=== PATIENT | female | born 1950 | race African-American/Black ===

== ENCOUNTER 2016-09-09 10:18 | Inpatient (IN) | payer OTHER, MEDICARE ==
[~2016-09-09] VITALS: Ht 165.1 cm; Wt 107.2 kg
[2016-09-09] VITALS (9 sets, daily range): BP systolic 132–217; BP diastolic 76–91; PULSE 50–81; RESP 14–24; TEMP 98.1–98.8; O2SAT 96–99
[~2016-09-09 10:18] MED LIST: 1-ME1LIQ PO; ASPI81TA17 PO; COZA50TA PO; HYDR-2768 PO; METO50CR PO; NOVONP2 SQ; NOVORP2 SQ; SALS500T PO
--- NOTE | 2016-09-09 10:52 | PD ---
HPI Chief Complaint: Abnormal Results Time Seen by Provider: 10:27 Travel History International Travel<30 days: No Contact w/Intl Traveler<30days: No Traveled to known affect area: No History of Present Illness HPI 66 y/o female presents with upset stomach that she followed with her primary Dr. Emery who did blood work and told her she needed to come to the emergency department given her liver numbers and kidney numbers were abnormal. Patient currently denies any abdominal pain or nausea at this time but does note dark urine. She does not know how abnormal her blood work was other than she was told to come here. PFSH Past Medical History Anxiety: Yes Cardiovascular Problems: Yes Diabetes: Yes Patient Takes Glucophage: No Hypertension: Yes Musculoskeletal: Yes (3 BULDGING DISCS IN THE LOWER BACK; CHRONIC BACK PAIN) Integumentary: Yes ?: Not : 2 Para: 2 Past Surgical History Hysterectomy: Yes Other Surgery: Yes Social History Alcohol Use: Yes (BEER OR WINE OCCASSIONALLY) Tobacco Use: No Substance Use: No Allergies-Medications (Allergen,Severity, Reaction): Coded Allergies: Flexeril (Verified Adverse Reaction, Mild, UPSET STOMACH, 09/09/16) Reported Meds & Prescriptions Reported Meds & Active Scripts Active Reported Omeprazole 20 Mg Tab 20 Mg PO DAILY Novolin R Inj (Insulin Human Regular) 1,000 Unit/10 Ml Vial 2-10 Units SQ DIRECTED Max dose at bedtime:( )units; sugars less than 150,(0) units; sugars 150-199,(2)unit; sugars 200-249,(4)units; sugars 250-299,(6) units; sugars 300-349,(8)units; sugars equal to or greater than 350,(10)units Losartan-Hydrochlorothiazide 100-25 Mg Tab 1 Tab PO DAILY Metoprolol Succinate ER 24 HR (Metoprolol Succinate) 100 Mg Tab 100 Mg PO DAILY Atorvastatin (Atorvastatin Calcium) 80 Mg Tab 80 Mg PO HS Novolin N Inj (Insulin Human NPH) 1,000 Unit/10 Ml Vial 10 Units SQ Alprazolam 0.5 Mg Tab 0.5 Mg PO Q4H PRN Hydrocodone-Acetaminophen 10-325 mg Tab 1 Tab PO Q4H PRN Review of Systems Except as stated in HPI: all other systems reviewed are Neg Physical Exam Narrative GENERAL: Well-nourished, well-developed patient. SKIN: Warm and dry. HEAD: Normocephalic and atraumatic. EYES: No injection or drainage. ENT: No nasal drainage noted. NECK: Supple, trachea midline. CARDIOVASCULAR: Regular rate and rhythm RESPIRATORY: No increased effort. No accessory muscle use. GASTROINTESTINAL: Abdomen soft, non-tender, nondistended. NEUROLOGICAL: Awake and alert. Motor and sensory grossly within normal limits. Normal speech. Data Data Last Documented VS Vital Signs Date Time Temp Pulse Resp B/P Pulse Ox O2 Delivery O2 Flow Rate FiO2 09/09/16 11:30 50 15 211/91 96 Room Air 09/09/16 10:21 98.3 Orders Complete Blood Count With Diff (09/09/16 10:27) Comprehensive Metabolic Panel (09/09/16 10:27) Urinalysis - C+S If Indicated (09/09/16 10:27) Lipase (09/09/16 10:27) Iv Access Insert/Monitor (09/09/16 10:27) Ct Abd/Pel W/O Iv Contrast (09/09/16 ) Dextrose 5%-Lactated Ring Inj (D5-Lr Inj (09/09/16 11:55) Creatine Kinase (Cpk) (09/09/16 12:49) Myoglobin, Urine (09/09/16 12:50) Admit Order (Ed Use Only) (09/09/16 12:50) Creatine Kinase (Cpk) (09/09/16 10:50) Direct Bilirubin (09/09/16 10:50) Gamma Gt (Ggt) (09/09/16 10:50) CKMB (09/09/16 10:50) CKMB% (09/09/16 10:50) Labs Laboratory Tests Test 09/09/16 09/09/16 10:50 11:30 White Blood Count 8.8 TH/MM3 Red Blood Count 4.53 MIL/MM3 Hemoglobin 13.3 GM/DL Hematocrit 39.0 % Mean Corpuscular Volume 85.9 FL Mean Corpuscular Hemoglobin 29.3 PG Mean Corpuscular Hemoglobin 34.1 % Concent Red Cell Distribution Width 16.8 % Platelet Count 249 TH/MM3 Mean Platelet Volume 11.0 FL Neutrophils (%) (Auto) 54.3 % Lymphocytes (%) (Auto) 23.6 % Monocytes (%) (Auto) 16.1 % Eosinophils (%) (Auto) 4.7 % Basophils (%) (Auto) 1.3 % Neutrophils # (Auto) 4.8 TH/MM3 Lymphocytes # (Auto) 2.1 TH/MM3 Monocytes # (Auto) 1.4 TH/MM3 Eosinophils # (Auto) 0.4 TH/MM3 Basophils # (Auto) 0.1 TH/MM3 CBC Comment AUTO DIFF Differential Comment AUTO DIFF CONFIRMED Sodium Level 135 MEQ/L Potassium Level 3.0 MEQ/L Chloride Level 96 MEQ/L Carbon Dioxide Level 32.3 MEQ/L Anion Gap 7 MEQ/L Blood Urea Nitrogen 40 MG/DL Creatinine 3.31 MG/DL Random Glucose 60 MG/DL Calcium Level 9.2 MG/DL Total Bilirubin 1.8 MG/DL Direct Bilirubin 1.2 MG/DL Gamma Glutamyl Transpeptidase 1432 U/L Aspartate Amino Transf 1023 U/L (AST/SGOT) Alanine Aminotransferase 419 U/L (ALT/SGPT) Alkaline Phosphatase 571 U/L Total Creatine Kinase GREATER THAN 18658 U/L Creatine Kinase MB 24.5 NG/ML Creatine Kinase MB % 0.0 % Total Protein 10.0 GM/DL Albumin 2.8 GM/DL Lipase 379 U/L Urine Color YELLOW Urine Turbidity CLEAR Urine pH 7.0 Urine Specific [place] 1.007 Urine Protein 100 mg/dL Urine Glucose (UA) NEG mg/dL Urine Ketones NEG mg/dL Urine Occult Blood LARGE Urine Nitrite NEG Urine Bilirubin NEG Urine Urobilinogen LESS THAN 2.0 MG/DL Urine Leukocyte Esterase NEG Urine RBC LESS THAN 1 /hpf Urine WBC 3 /hpf Urine Squamous Epithelial 1 /hpf Cells Urine Transitional Epithelial <1 /hpf Cells Urine Bacteria RARE /hpf Microscopic Urinalysis Comment CULT NOT INDICATED Urine Random Creatinine 58.1 MG/DL Urine Random Sodium 41 MEQ/L Urine Opiates Screen NEG Urine Barbiturates Screen NEG Urine Amphetamines Screen NEG Urine Benzodiazepines Screen NEG Urine Cocaine Screen NEG Urine Cannabinoids Screen NEG MDM Medical Decision Making Medical Screen Exam Complete: Yes Emergency Medical Condition: Yes Medical Record Reviewed: Yes (past history confirmed) Interpretation(s) CBC & BMP Diagram 09/09/16 10:50 Last 24 hours Impressions Abdomen/Pelvis CT 09/09/16 0000 Signed Impressions: Service Date/Time: Friday, September 09, 2016 12:27 - CONCLUSION: Normal liver, gallbladder and biliary tree. Multiple bilateral renal calyceal punctate stone is nonobstructive. Surgical absence of uterus. Degenerative changes of the lumbar spine Ghassan Swift MD Differential Diagnosis Choledocholithiasis, hepatitis, mass.... Narrative Course Will check blood work, urinalysis, CAT scan and reevaluate. Currently pain-free ed workup confirms acute renal failure and elevated LFTs without mass or gallstone. Patient will be admitted for further workup. Physician Communication Physician Communication dr hernandez agrees to admit, CK added on Diagnosis Primary Impression: Acute renal failure Qualified Code: N17.9 - Acute renal failure, unspecified acute renal failure type Additional Impressions: Rhabdomyolysis Qualified Code: M62.82 - Non-traumatic rhabdomyolysis Elevated LFTs Hypoglycemia Admitting Information Admitting Physician Requests: Admit Aracelis Mcgrath MD Sep 09, 2016 10:52
[2016-09-09 11:10] LABS: AUTOMATED NEUTROPHIL # 4.8 TH/MM3 (1.8-7.7); BASOPHIL # 0.1 TH/MM3 (0-0.2); BASOPHIL % 1.3 % (0.0-2.0); EOSINOPHIL # 0.4 TH/MM3 (0-0.4); EOSINOPHIL % 4.7 % (0.0-4.0); LYMPH % 23.6 % (9.0-44.0); LYMPHOCYTE # 2.1 TH/MM3 (1.0-4.8); MEAN CELL VOLUME 85.9 FL (80.0-100.0); MEAN CORPUSCULAR HEMOGLOBIN 29.3 PG (27.0-34.0); MEAN CORPUSCULAR HGB CONC 34.1 % (32.0-36.0); MONO % 16.1 % (0.0-8.0); NEUT % 54.3 % (16.0-70.0); PLATELET COUNT 249 TH/MM3 (150-450); RED BLOOD COUNT 4.53 MIL/MM3 (4.00-5.30); RED CELL DISTRIBUTION WIDTH 16.8 % (11.6-17.2); WHITE BLOOD COUNT 8.8 TH/MM3 (4.0-11.0)
[2016-09-09 11:11] LABS: HEMO FLAGS AUTO DIFF
[2016-09-09 11:23] LABS: ALT (GPT) 419 U/L (10-53); ANION GAP 7 MEQ/L (5-15); BICARBONATE 32.3 MEQ/L (21.0-32.0); BLOOD UREA NITROGEN 40 MG/DL (7-18); CHLORIDE 96 MEQ/L (98-107); SODIUM (NA) 135 MEQ/L (136-145)
[2016-09-09 11:30] LABS: ALKALINE PHOSPHATASE 571 U/L (45-117); AST (GOT) 1023 U/L (15-37); TOTAL BILIRUBIN ADULT 1.8 MG/DL (0.2-1.0)
[2016-09-09 11:48] LABS: BACTERIA, URINE RARE /hpf; BLOOD, URINE LARGE (NEG); COMMENT (UR) CULT NOT INDICATED; CULTURE IF INDICATED CULT NOT INDICATED; GLUCOSE,URINE NEG (NEG); KETONE, URINE NEG (NEG); NITRITE,URINE NEG (NEG); SQUAMOUS EPITHELIAL CELL URINE 1 /hpf (0-5); TRANSITIONAL EPI CELLS, URINE <1 /hpf; URINE COLOR YELLOW (YELLW/STRAW)
[2016-09-09] MEDS ORDERED: DEXTROSE 5%-LACTATED RING INJ 1,000 ML IV SCH (11:55)
[2016-09-09 12:06] LABS: SCAN/DIFF AUTO DIFF CONFIRMED
--- NOTE | 2016-09-09 12:46 | RADRPT ---
EXAM DATE/TIME: 09/09/2016 12:27 [facility] COMPARISON: No previous studies available for comparison. INDICATIONS : Abnormal liver and kidney blood work. ORAL CONTRAST: No oral contrast ingested. RADIATION DOSE: 16.91 CTDIvol (mGy) MEDICAL HISTORY : Hypertension. Diabetes SURGICAL HISTORY : Hysterectomy. ENCOUNTER: Initial ACUITY: 1 day PAIN SCALE: 0/10 LOCATION: abdomen TECHNIQUE: Volumetric scanning of the abdomen and pelvis was performed. Using automated exposure control and ad justment of the mA and/or kV according to patient size, radiation dose was kept as low as reasonably achievable to obtain optimal diagnostic quality images. FINDINGS: LOWER LUNGS: The visualized lower lungs are clear. LIVER: Homogeneous density without lesion. There is no dilation of the biliary tree. No calcified gallston es. Gallbladder series luminal structure without wall thickening or stones. SPLEEN: Normal size without lesion. PANCREAS: Within normal limits. KIDNEYS: Normal in size and shape. There is no mass or hydronephrosis. Multiple bilateral punctate nonobstruc ting calyceal renal stones. ADRENAL GLANDS: Within normal limits. VASCULAR: There is no aortic aneurysm. BOWEL/MESENTERY: The stomach, small bowel, and colon demonstrate no acute abnormality. There is no free intraperitone al air or fluid. Appendix visualized and normal. ABDOMINAL WALL: Within normal limits. RETROPERITONEUM: There is no lymphadenopathy. BLADDER: No wall thickening or mass. REPRODUCTIVE: Surgical absence of uterus.. INGUINAL: There is no lymphadenopathy or hernia. MUSCULOSKELETAL: Degenerative disc disease lower lumbar spine L4-5 and L5-S1 with facet arthritic changes. CONCLUSION: Normal liver, gallbladder and biliary tree. Multiple bilateral renal calyceal punctate stone is n onobstructive. Surgical absence of uterus. Degenerative changes of the lumbar spine Ghassan Swift MD on September 09, 2016 at 12:41 Board Certified Radiologist. This report was verified electronically.
[2016-09-09] MEDS ORDERED: SODIUM CHLOR 0.9% 1000 ML INJ 1,000 ML IV SCH (12:50)
[2016-09-09] MEDS ORDERED: NALOXONE HCL 0.4 MG/ML AMP IV PRN (13:00)
[2016-09-09] MEDS ORDERED: SODIUM CHLORIDE 0.9% FLUSH 5 ML FLUSH FLUSH PRN (13:00)
[2016-09-09] MEDS ORDERED: DEXTROSE 50% IN WATER 50 ML VIAL(D50) IV PUSH PRN (13:15)
[2016-09-09] MEDS ORDERED: GLUCAGON 1 MG/ML VIAL OTHER PRN (13:15)
[2016-09-09 13:43] LABS: AMPHETAMINE, URINE NEG (NEG); BARBITURATES, URINE NEG (NEG); COCAINE, URINE NEG (NEG)
[2016-09-09] MEDS: HEPARIN SODIUM - SQ 10,000 UNITS/ML VIAL SQ SCH (13:43)
[2016-09-09] MEDS: cloNIDine HCL 0.1 MG TAB PO PRN ×2 (13:43→20:40)
[2016-09-09] MEDS ORDERED: POTASSIUM CHLORIDE 10 MEQ CONTROLLED RELEASE TAB PO ONE (14:45)
[2016-09-09] MEDS ORDERED: THIAMINE HCL 100 MG TAB PO ONE (14:45)
[2016-09-09] MEDS ORDERED: SODIUM CHLORID 0.9% 500 ML INJ 500 ML IV ONE (14:45)
[2016-09-09 14:58] LABS: GAMMA GT 1432 U/L (5-55)
[2016-09-09] MEDS ORDERED: predniSONE 10 MG TAB PO ONE (15:00)
[2016-09-09 15:06] LABS: CREATINE KINASE GREATER THAN 14000 U/L (26-192)
[2016-09-09 15:23] LABS: CKMB 24.5 NG/ML (0.5-3.6)
[2016-09-09] MEDS ORDERED: METO100T9 PO (15:37)
[2016-09-09] MEDS ORDERED: HYDR-3583 PO (15:37)
[2016-09-09] MEDS ORDERED: ATOR1TAB18 PO (15:37)
[2016-09-09] MEDS ORDERED: NOVORP2 SQ (15:37)
[2016-09-09] MEDS ORDERED: ALPR0.5T3 PO (15:37)
[2016-09-09] MEDS ORDERED: OMEP20TA PO (15:37)
[2016-09-09] MEDS ORDERED: NOVONP2 SQ (15:37)
[2016-09-09] MEDS ORDERED: LOSA100T2 PO (15:37)
[2016-09-09] MEDS ORDERED: INSULIN ASPART SUPPLEMENTAL SCALE SQ SCH (16:00)
[2016-09-09] MEDS ORDERED: D5-NS + KCL 20 MEQ INJ 1,000 ML IV SCH (16:00)
[2016-09-09 16:11] LABS: HEMOGLOBIN A1a 1.2 %; HEMOGLOBIN Ao 82.6 %; HEMOGLOBIN F 1.3 %; HEMOGLOBIN LA1C 1.7 %; HEMOGLOBIN P3 4.5 %
--- NOTE | 2016-09-09 16:54 | PD.CONS ---
[facility] Service Nephrology Consult Requested By Reason for Consult Acute Renal Failure Primary Care Physician Trish Emery MD History of Present Illness This is a morbidly obese AAF who was sent in by her PCP for abnormal labs. She went in for routine lab work, but now reports that she has been having epigastric pain with nausea for 1-2 weeks. She has also been extremely fatigued. PMH significant for DM II since 1996, managed on insulin, HTN, anxiety , and chronic back pain. She denies hx of renal disorders in the past. Labs on admission abnormal for the following: K 3.0, CO2 32.3, BUN 40, Cr 3.31, T Bili 1.8, CK >38367, AST 1023, ALT 419, GGT 1432, Alk phos 571. CT of abdomen without contrast showing normal liver/GB study but did reveal multiple nonobstructing renal stones bilaterally. She denies hx of renal stones in the past. Her urine output has decreased drastically over past 2 weeks, and she noticed it has became very dark, tea/cola colored. UA today revealing some protein and large occult blood. We were consulted today for renal management. She denies trauma/falls, seizures, muscle pain, chest pain, and shortness of breath. She has been on Atorvastatin 20 mg since April 2016 with no issues. Her last creatinine on record was normal but that dates from 2012. I called her PCP and was able to have baseline labs sent over for review. It seems in October of 2015 creatinine measured 1.11, GFR 60, with trace proteinuria. She does take Advil prn for pain, has only taken one dose in past 2 weeks. Her oral intake has been minimal this week. Her is at bedside during the exam, she is a full code. She is not a heavy drinker. IVF infusing is D5NS with 20 mEq KCL @ 100cc/hr. She was given one amp of D50 and a dose of prednisone due to hypoglycemia in ER. (Charlene Ramirez) Review of Systems Constitutional: COMPLAINS OF: Fatigue, Change in appetite, DENIES: Fever, Weight gain, Night Sweats Cardiovascular: DENIES: Chest pain, Dyspnea on Exertion, Lower Extremity Edema Gastrointestinal: COMPLAINS OF: Abdominal pain, Constipation, Nausea, Anorexia , DENIES: Black stools, Bloody stools, Difficulty Swallowing Neurologic: DENIES: Abnormal gait (Charlene Ramirez) Past Family Social History Allergies: Coded Allergies: Flexeril (Verified Adverse Reaction, Mild, UPSET STOMACH, 09/09/16) Past Medical History HTN DM II since 1996 Hyperlipidemia Anxiety Chronic back pain Vitiligo ventral hernia Past Surgical History Total abdominal hysterectomy Carpel tunnel bilaterally Reported Medications Omeprazole 20 Mg Tab 20 Mg PO DAILY Novolin R Inj (Insulin Human Regular) 1,000 Unit/10 Ml Vial 2-10 Units SQ DIRECTED Max dose at bedtime:( )units; sugars less than 150,(0) units; sugars 150-199,(2)unit; sugars 200-249,(4)units; sugars 250-299,(6) units; sugars 300-349,(8)units; sugars equal to or greater than 350,(10)units Losartan-Hydrochlorothiazide 100-25 Mg Tab 1 Tab PO DAILY Metoprolol Succinate ER 24 HR (Metoprolol Succinate) 100 Mg Tab 100 Mg PO DAILY Atorvastatin (Atorvastatin Calcium) 80 Mg Tab 80 Mg PO HS Novolin N Inj (Insulin Human NPH) 1,000 Unit/10 Ml Vial 10 Units SQ Alprazolam 0.5 Mg Tab 0.5 Mg PO Q4H PRN Hydrocodone-Acetaminophen 10-325 mg Tab 1 Tab PO Q4H PRN Active Ordered Medications Current Medications Medications (Trade) Dose Ordered Sig/Chantel Route Start Time Stop Time Status Last Admin (NS Flush) 2 ml UNSCH PRN FLUSH 09/09/16 13:00 (NS Flush) 2 ml BID FLUSH 09/09/16 21:00 (Heparin Inj) 5,000 units Q12H SQ 09/09/16 14:00 09/09/16 13:43 (Narcan Inj) 0.4 mg UNSCH PRN IV 09/09/16 13:00 (Catapres) 0.1 mg Q6H PRN PO 09/09/16 13:00 09/09/16 13:43 (D50w (Vial) Inj) 25 ml UNSCH PRN IV PUSH 09/09/16 13:15 09/09/16 13:42 Glucagon 1 mg 1 mg UNSCH PRN OTHER 09/09/16 13:15 (D5-NS + KCl 20 Meq Inj) 1,000 ml @ 100 mls/hr Q10H IV 09/09/16 16:00 09/09/16 15:26 Family History No family hx of renal disorders Social History , lives locally with she is retired from hospitality/hotel/food industry functionally independent no prior hx of smoking occasional ETOH, not daily no drug use, urine drug screen negative on admission full code (Charlene Ramirez) Physical Exam Vital Signs Vital Signs Date Time Temp Pulse Resp B/P Pulse Ox O2 Delivery O2 Flow Rate FiO2 09/09/16 15:18 54 15 158/76 97 Room Air 09/09/16 14:27 52 15 187/81 97 Room Air 09/09/16 13:04 54 15 217/84 97 Room Air 09/09/16 11:30 50 15 211/91 96 Room Air 09/09/16 10:21 98.3 56 24 132/76 97 Room Air Physical Exam Morbidly obese AAF sitting up in bed Neuro: awake, alert/oriented no deficit CV: S1/S2, Regular rate/rhythm, no murmurs Lungs: clear without wheezing Abd: obese, soft, non tender Ext: no edema Skin: vitiligo throughout Laboratory Laboratory Tests Test 09/09/16 09/09/16 10:50 11:30 White Blood Count 8.8 Red Blood Count 4.53 Hemoglobin 13.3 Hematocrit 39.0 Mean Corpuscular Volume 85.9 Mean Corpuscular Hemoglobin 29.3 Mean Corpuscular Hemoglobin 34.1 Concent Red Cell Distribution Width 16.8 Platelet Count 249 Mean Platelet Volume 11.0 Neutrophils (%) (Auto) 54.3 Lymphocytes (%) (Auto) 23.6 Monocytes (%) (Auto) 16.1 Eosinophils (%) (Auto) 4.7 Basophils (%) (Auto) 1.3 Neutrophils # (Auto) 4.8 Lymphocytes # (Auto) 2.1 Monocytes # (Auto) 1.4 Eosinophils # (Auto) 0.4 Basophils # (Auto) 0.1 CBC Comment AUTO DIFF Differential Comment AUTO DIFF CONFIRMED Sodium Level 135 Potassium Level 3.0 Chloride Level 96 Carbon Dioxide Level 32.3 Anion Gap 7 Blood Urea Nitrogen 40 Creatinine 3.31 Random Glucose 60 Calcium Level 9.2 Total Bilirubin 1.8 Direct Bilirubin 1.2 Gamma Glutamyl Transpeptidase 1432 Aspartate Amino Transf 1023 (AST/SGOT) Alanine Aminotransferase 419 (ALT/SGPT) Alkaline Phosphatase 571 Total Creatine Kinase GREATER THAN 69872 Creatine Kinase MB 24.5 Creatine Kinase MB % 0.0 Total Protein 10.0 Albumin 2.8 Lipase 379 Urine Color YELLOW Urine Turbidity CLEAR Urine pH 7.0 Urine Specific [place] 1.007 Urine Protein 100 Urine Glucose (UA) NEG Urine Ketones NEG Urine Occult Blood LARGE Urine Nitrite NEG Urine Bilirubin NEG Urine Urobilinogen LESS THAN 2.0 Urine Leukocyte Esterase NEG Urine RBC LESS THAN 1 Urine WBC 3 Urine Squamous Epithelial 1 Cells Urine Transitional Epithelial <1 Cells Urine Bacteria RARE Microscopic Urinalysis Comment CULT NOT INDICATED Urine Random Creatinine 58.1 Urine Random Sodium 41 Urine Opiates Screen NEG Urine Barbiturates Screen NEG Urine Amphetamines Screen NEG Urine Benzodiazepines Screen NEG Urine Cocaine Screen NEG Urine Cannabinoids Screen NEG (Charlene Ramirez) Result Diagram: 09/09/16 1050 09/09/16 1050 Imaging Last 72 hours Impressions Abdomen/Pelvis CT 09/09/16 0000 Signed Impressions: Service Date/Time: Friday, September 09, 2016 12:27 - CONCLUSION: Normal liver, gallbladder and biliary tree. Multiple bilateral renal calyceal punctate stone is nonobstructive. Surgical absence of uterus. Degenerative changes of the lumbar spine Ghassan Swift MD (Charlene Ramirez) Assessment and Plan Problem List: (1) Acute renal failure Plan: In 2012 her creatinine was normal; Per PCP records which I was able to obtain, Cr 1.11/BUN 27, GFR 60 in October 2015 has had proteinuria in the past, may have underlying diabetic nephropathy MONIK due to rhabdomyolysis, but she does report decreased oral intake for weeks FeNa 1.7%, suggesting intrarenal etiology CT showing non obstructing renal stones bilaterally she states her urine output has dropped, no nguyễn ordered , bladder scans if unable to urinate quantify proteinuria, obtain serologies to complete work up as she has had proteinuria with no nephrology evaluation in the past at this time continue IVF; she was on D5NS with 20 mEq KCL @ 100 cc/hr (her blood sugar was 60 mg/dL in ER, repeat had improved), start 0.9% NS @ 100cc/hr give oral KCL if needed, encourage oral nutrition avoid nephrotoxins, she was given a dose of prednisone which may raise BUN renal panel in am, await test results I do not anticipate she will require dialysis during this admission (2) Elevated LFTs Plan: unknown etiology, no excess ETOH use/exposure she is on a statin daily, which I will avoid at this time CT not showing any gallstones hepatitis profile in process, GI to be consulted (3) Rhabdomyolysis Plan: etiology may be medication related: it is noted that she is on Atorvastatin 20 mg daily at home. She has been on this since April 2016 and has not had any issues including myalgias since starting this medication; previously she was on Pravastatin 80 mg daily, it was changed to current med, pt unsure of reason for change avoid statins at this time follow CK levels, continue fluids (4) DMII (diabetes mellitus, type 2) Plan: BG low today, given D50 in ER, now on IVF with dextrose avoid oral antihyperglycemics at this time serial finger sticks, insulin as needed, A1c in process she was also given a dose of prednisone in ER (5) HTN (hypertension) Plan: monitor blood pressure, avoid ASH as she has had an allergy (? angioedema ) in past and also due to MONIK continue home medications, titrate as needed (Charlene Ramirez) Assessment and Plan patient was seen and examined. Agree with above assessment and plan. She has rhabdomyolysis. No history of fall/trauma. Was on a statin. Continue IVF. Replace potassium. Monitor urine output and renal function. (Pete Daley MD) Problem Qualifiers (1) Acute renal failure: Qualified Code: N17.9 - Acute renal failure, unspecified acute renal failure type (2) Rhabdomyolysis: Qualified Code: M62.82 - Non-traumatic rhabdomyolysis Charlene Ramirez Sep 09, 2016 16:54 Pete Daley MD Sep 10, 2016 14:27
[2016-09-09 16:56] LABS: BICARBONATE 30.9 MEQ/L (21.0-32.0)
[2016-09-09 16:57] LABS: POTASSIUM 3.9 MEQ/L (3.5-5.1)
[2016-09-09 17:20] LABS: CREATINE KINASE GREATER THAN 14000 U/L (26-192)
--- NOTE | 2016-09-09 17:25 | PD.CONS ---
HPI History of Present Illness This is a 66 year old female patient who was referred to the hospital for abnormal lab work done as outpatient. SHe reports that about 1-2 weeks ago, she started having nausea with associated malaise and generalized fatigue. She states that she was so tired that she would get up and do something, but then have to lie right back down. She denies any vomiting or abdominal pain. She denies any heartburn or reflux. She has had decreased appetite and has not been eating much. She has lost some weight, about 30 lbs over the past year. No constipation or diarrhea. She has felt warm and had intermittent chills but did not take her temperature. Her symptoms seemed to be aggravated by activity and would improve some with rest. She denies any recent travel, suspicious food , although she did have lobster tail last Wednesday. No drug use. No new sexual partners. She denies any new medications or herbal supplements, other than omeprazole. She does not take acetaminophen or acetaminophen containing products. She went to her PCP and he had her go for labs and she was called today and instructed to go to the ER for further evaluation. 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 Retroflexed views revealed no abnormalities. The patient reports that she also had a colonoscopy in 2012 at which time 6 polyps were removed. (Silva Leyva) PFSH Past Medical History Anxiety Coronary artery disease Chronic lower back pain Diabetes Eczema Hypertension Gallop GI bleeding Hyperlipidemia Mitral regurgitation Morbid obesity Osteoarthritis Peripheral neuropathy Ventral hernia Past Surgical History Cardiac catheterization EGD Spinal injections (Silva Leyva) Coded Allergies: Flexeril (Verified Adverse Reaction, Mild, UPSET STOMACH, 09/09/16) Medications Allergies Coded Allergies Type Severity Reaction Last Updated Verified Flexeril Adverse Reaction Mild UPSET STOMACH 09/09/16 Yes Active Scripts Medications Dose Route/Sig Days Date Category Dose Instructions Omeprazole 20 Mg Tab 20 Mg PO DAILY 09/09/16 Reported Novolin R Inj (Insulin Human Regular) 1,000 Unit/10 Ml Vial 2-10 Units SQ DIRECTED 09/09/16 Reported Max dose at bedtime:( )units; sugars less than 150,(0) units; sugars 150-199,(2)unit; sugars 200-249,(4)units; sugars 250-299,(6) units; sugars 300-349,(8)units; sugars equal to or greater than 350,(10)units Losartan-Hydrochlorothiazide 100-25 Mg Tab 1 Tab PO DAILY 09/09/16 Reported Metoprolol Succinate ER 24 HR (Metoprolol Succinate) 100 Mg Tab 100 Mg PO DAILY 09/09/16 Reported Atorvastatin (Atorvastatin Calcium) 80 Mg Tab 80 Mg PO HS 09/09/16 Reported Novolin N Inj (Insulin Human NPH) 1,000 Unit/10 Ml Vial 10 Units SQ 09/09/16 Reported Alprazolam 0.5 Mg Tab 0.5 Mg PO Q4H PRN 09/09/16 Reported Hydrocodone-Acetaminophen 10-325 mg Tab 1 Tab PO Q4H PRN 09/09/16 Reported Family History Family history of cervical cancer in mother, family history of lung cancer in father Social History Occasional alcohol use. Never smoked. No illicit drug use (Silva Leyva) Review of Systems Constitutional: COMPLAINS OF: Fatigue, Fever, Weight loss, Chills, Change in appetite Respiratory: DENIES: Cough, Shortness of breath Cardiovascular: DENIES: Chest pain Gastrointestinal: COMPLAINS OF: Nausea, Anorexia, DENIES: Abdominal pain, Black stools, Bloody stools, Constipation, Diarrhea, Vomiting, Swelling of Abdomen, Heartburn, Hematemesis Integumentary: DENIES: Abnormal pigmentation Hematologic/lymphatic: DENIES: Bruising Neurologic: DENIES: Headache Psychiatric: DENIES: Confusion (Silva Leyva) GI Exam Vitals I&O Vital Signs Date Time Temp Pulse Resp B/P Pulse Ox O2 Delivery O2 Flow Rate FiO2 09/09/16 17:16 54 16 169/89 98 Room Air 09/09/16 15:18 54 15 158/76 97 Room Air 09/09/16 14:27 52 15 187/81 97 Room Air 09/09/16 13:04 54 15 217/84 97 Room Air 09/09/16 11:30 50 15 211/91 96 Room Air 09/09/16 10:21 98.3 56 24 132/76 97 Room Air Imaging Last Impressions Abdomen/Pelvis CT 09/09/16 0000 Signed Impressions: Service Date/Time: Friday, September 09, 2016 12:27 - CONCLUSION: Normal liver, gallbladder and biliary tree. Multiple bilateral renal calyceal punctate stone is nonobstructive. Surgical absence of uterus. Degenerative changes of the lumbar spine Ghassan Swift MD Laboratory Test 09/09/16 09/09/16 09/09/16 10:50 11:30 16:00 White Blood Count 8.8 TH/MM3 Red Blood Count 4.53 MIL/MM3 Hemoglobin 13.3 GM/DL Hematocrit 39.0 % Mean Corpuscular Volume 85.9 FL Mean Corpuscular Hemoglobin 29.3 PG Mean Corpuscular Hemoglobin 34.1 % Concent Red Cell Distribution Width 16.8 % Platelet Count 249 TH/MM3 Mean Platelet Volume 11.0 FL Neutrophils (%) (Auto) 54.3 % Lymphocytes (%) (Auto) 23.6 % Monocytes (%) (Auto) 16.1 % Eosinophils (%) (Auto) 4.7 % Basophils (%) (Auto) 1.3 % Neutrophils # (Auto) 4.8 TH/MM3 Lymphocytes # (Auto) 2.1 TH/MM3 Monocytes # (Auto) 1.4 TH/MM3 Eosinophils # (Auto) 0.4 TH/MM3 Basophils # (Auto) 0.1 TH/MM3 CBC Comment AUTO DIFF Differential Comment AUTO DIFF CONFIRMED Sodium Level 135 MEQ/L 133 MEQ/L Potassium Level 3.0 MEQ/L 3.9 MEQ/L Chloride Level 96 MEQ/L 95 MEQ/L Carbon Dioxide Level 32.3 MEQ/L 30.9 MEQ/L Anion Gap 7 MEQ/L 7 MEQ/L Blood Urea Nitrogen 40 MG/DL 40 MG/DL Creatinine 3.31 MG/DL 3.39 MG/DL Random Glucose 60 MG/DL 214 MG/DL Hemoglobin A1c 7.3 % Calcium Level 9.2 MG/DL 8.1 MG/DL Total Bilirubin 1.8 MG/DL Direct Bilirubin 1.2 MG/DL Gamma Glutamyl Transpeptidase 1432 U/L Aspartate Amino Transf 1023 U/L (AST/SGOT) Alanine Aminotransferase 419 U/L (ALT/SGPT) Alkaline Phosphatase 571 U/L Total Creatine Kinase GREATER THAN GREATER THAN 40500 U/L 19687 U/L Creatine Kinase MB 24.5 NG/ML Creatine Kinase MB % 0.0 % Total Protein 10.0 GM/DL Albumin 2.8 GM/DL Lipase 379 U/L Urine Color YELLOW Urine Turbidity CLEAR Urine pH 7.0 Urine Specific [place] 1.007 Urine Protein 100 mg/dL Urine Glucose (UA) NEG mg/dL Urine Ketones NEG mg/dL Urine Occult Blood LARGE Urine Nitrite NEG Urine Bilirubin NEG Urine Urobilinogen LESS THAN 2.0 MG/DL Urine Leukocyte Esterase NEG Urine RBC LESS THAN 1 /hpf Urine WBC 3 /hpf Urine Squamous Epithelial 1 /hpf Cells Urine Transitional Epithelial <1 /hpf Cells Urine Bacteria RARE /hpf Microscopic Urinalysis Comment CULT NOT INDICATED Urine Random Creatinine 58.1 MG/DL Urine Random Sodium 41 MEQ/L Urine Opiates Screen NEG Urine Barbiturates Screen NEG Urine Amphetamines Screen NEG Urine Benzodiazepines Screen NEG Urine Cocaine Screen NEG Urine Cannabinoids Screen NEG Prothrombin Time 11.0 SEC Prothromb Time International 1.0 RATIO Ratio Estimat Glomerular Filtration 16 ML/MIN Rate Physical Examination HEENT: Pupils round and reactive to light; normocephalic; atraumatic; no jaundice. Throat is clear. NECK: Neck is supple, no JVD, no lymphadenopathy. CHEST: Chest is clear to auscultation and percussion. CARDIAC: Regular rate and rhythm with no murmur gallop or rubs. ABDOMEN: Soft, nondistended, nontender; no hepatosplenomegaly; bowel sounds are present in all four quadrants. EXTREMITIES: No clubbing, cyanosis, or edema. SKIN: Normal; no rash; no jaundice. [employer]: No focal deficits; alert and oriented times three. (Silva Leyva) Assessment and Plan Plan ASSESSMENT: - Acute hepatitis/elevated LFTs. Abdomen/Pelvis CT (09/09/16)----> Normal liver , gallbladder and biliary tree. Multiple bilateral renal calyceal punctate stone is nonobstructive. Surgical absence of uterus. Degenerative changes of the lumbar spine. T. Bili 1.8, AST 1023, ALT 419, Alk Phosph 571, GGT 1432, CPK > 14,000. ESR 63. Pt reports she has had nausea and generalized malaise/fatigue, possible mild fever/chills, but no other GI symptoms such as pain or diarrhea. She has lost about 30 lbs over the past year. No hx of hepatitis or liver disease. Occasional ETOH. No drug use. Only new medication is omeprazole. No herbal supplements. No recent travel. Did recently have lobster tail, but no other suspicious foods. No new sexual partners. Pt has acute hepatitis, unclear etiology. No acetaminophen use. Will order workup to exclude viral etiology vs. other. Of note, she also has rhabdo which is likely contributing to this to some degree as the AST is > ALT. Also, patient has vitiligo and will need to rule out autoimmune. - Rhabdomyolysis. CPK > 14,000. No fall/injuries. She has had decreased po intake. - ARF with electrolyte abnormalities. Likely to rhabdo. Renal consulted. - Nausea, generalized malaise. 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 Retroflexed views revealed no abnormalities. The patient reports that she also had a colonoscopy in 2012 at which time 6 polyps were removed. IVF. PPI PLAN: - GUNJAN - IVF - PPI - Hepatitis profile - AFP level - ASIM, AMA, ASMA - Ferritin, Iron Saturation - Ceruloplasmin, Alpha 1 Antitrypsin - CBC, CMP, PT/INR, CPK in am - Supportive care - Further recommendations to follow based on results of above - Pt seen and examined by Dr. Valerio and myself and this note is written on her behalf (Silva Leyva) Physician Comments patient seen, examined await work-up if no improvement and work-up negative consider liver , muscle biopsy -concern for autoimmune process supportive care (Shilpi Valerio MD) Silva Leyva Sep 09, 2016 17:25 Shilpi Valerio MD Sep 09, 2016 20:31
[2016-09-09 17:36] LABS: CKMB 23.8 NG/ML (0.5-3.6)
[2016-09-09] MEDS: SODIUM CHLOR 0.9% 1000 ML INJ 1,000 ML IV SCH (18:30)
[2016-09-09 19:00] LABS: FERRITIN 522 NG/ML (8-252); TRANSFERRIN IRON PROFILE 238 MG/DL (200-360)
[2016-09-09 19:02] LABS: ACETAMINOPHEN LESS THAN 2.0 MCG/ML (10.0-30.0)
[2016-09-09] MEDS: INSULIN ASPART SUPPLEMENTAL SCALE SQ SCH (20:40)
[2016-09-09] MEDS: SODIUM CHLORIDE 0.9% FLUSH 5 ML FLUSH FLUSH SCH (20:41)
[2016-09-09] MEDS ORDERED: cloNIDine HCL 0.1 MG TAB PO PRN (21:30)
[2016-09-09] MEDS: ACETAMINOPHEN/HYDROcodone 325 MG/10 MG TAB PO PRN (21:32)
[2016-09-09] MEDS ORDERED: NIFEdipine 30 MG SUSTAINED RELEASE TAB PO ONE (23:15)
--- NOTE | 2016-09-09 23:32 | HHI.HP ---
[facility]ician Trish Emery MD Admission Diagnosis acute renal failure, elevated lfts Diagnoses: Travel History International Travel<30 Days: No Contact w/Intl Traveler <30 Da: No Traveled to Known Affected Are: No History of Present Illness 66-year-old female with a history of hypertension, anxiety, hyperlipidemia, who presents with a 1-2 week history of progressive malaise, as well as nausea, non- bloody, non-coffee ground vomiting. She denies any abdominal pain. She does report worsening pain in her bilateral posterior thighs. She visited her primary care yesterday, and was started on PPI. She was called today by primary care, who told her to report to ER for evaluation of kidney failure. She denies any fevers, however does report intermittent chills over the past couple weeks. Denies any constipation or diarrhea. Patient does report worsening of chronic low back pain over the past 2 weeks. She also reports 2 week history of low blood sugars, typically 80s in the morning Review of Systems Other performed and negative except for HPI and past medical history. Past Family Social History Past Medical History Hypertension Anxiety Hyperlipidemia Diabetes. Insulin-dependent. Diagnosed in 1996 Chronic back pain GERD Vitiligo Umbilical hernia Coronary artery disease. Patient denies ever having cardiac catheterization History of esophageal stricture Past Surgical History Hysterectomy Carpal tunnel nerve release Reported Medications Reported Meds & Active Scripts Active Reported Omeprazole 20 Mg Tab 20 Mg PO DAILY Novolin R Inj (Insulin Human Regular) 1,000 Unit/10 Ml Vial 2-10 Units SQ DIRECTED Max dose at bedtime:( )units; sugars less than 150,(0) units; sugars 150-199,(2)unit; sugars 200-249,(4)units; sugars 250-299,(6) units; sugars 300-349,(8)units; sugars equal to or greater than 350,(10)units Losartan-Hydrochlorothiazide 100-25 Mg Tab 1 Tab PO DAILY Metoprolol Succinate ER 24 HR (Metoprolol Succinate) 100 Mg Tab 100 Mg PO DAILY Atorvastatin (Atorvastatin Calcium) 80 Mg Tab 80 Mg PO HS Novolin N Inj (Insulin Human NPH) 1,000 Unit/10 Ml Vial 10 Units SQ Alprazolam 0.5 Mg Tab 0.5 Mg PO Q4H PRN Hydrocodone-Acetaminophen 10-325 mg Tab 1 Tab PO Q4H PRN Allergies: Coded Allergies: Flexeril (Verified Adverse Reaction, Mild, UPSET STOMACH, 09/09/16) Family History Mother with cervical cancer. Father from lung cancer Social History Patient reports that she is a nonsmoker. Drinks very rarely, none recently. Denies any illicit drugs. Lives with Physical Exam Vital Signs Vital Signs Date Time Temp Pulse Resp B/P Pulse Ox O2 Delivery O2 Flow Rate FiO2 09/09/16 21:30 171/83 162/79 09/09/16 20:00 98.8 62 20 201/83 99 180/90 09/09/16 18:15 98.1 81 20 183/84 97 09/09/16 17:16 54 16 169/89 98 Room Air 09/09/16 15:18 54 15 158/76 97 Room Air 09/09/16 14:27 52 15 187/81 97 Room Air 09/09/16 13:04 54 15 217/84 97 Room Air 09/09/16 11:30 50 15 211/91 96 Room Air 09/09/16 10:21 98.3 56 24 132/76 97 Room Air Physical Exam GENERAL: This is a well-nourished, well-developed patient, in no apparent distress.obese. No acute distress. Alert and oriented 3. SKIN: No rashes, ecchymoses or lesions. Cool and dry. patient does have vitiligo on hands, as well as abdomen. HEAD: Atraumatic. Normocephalic. No temporal or scalp tenderness. EYES: Pupils equal round and reactive. Extraocular motions intact. No scleral icterus. No injection or drainage. ENT: Nose without bleeding, purulent drainage or septal hematoma. Throat without erythema, tonsillar hypertrophy or exudate. Uvula midline. Airway patent. NECK: Trachea midline. No JVD or lymphadenopathy. Supple, nontender, no meningeal signs. CARDIOVASCULAR: Regular rate and rhythm without murmurs, gallops, or rubs. RESPIRATORY: Clear to auscultation. Breath sounds equal bilaterally. No wheezes , rales, or rhonchi. GASTROINTESTINAL: Abdomen obese,soft, non-tender, nondistended. No hepato- splenomegaly, or palpable masses. No guarding. partially reducible hernia just right of umbilicus. Nontender. MUSCULOSKELETAL: Extremities without clubbing, cyanosis, or edema. No joint tenderness, effusion, or edema noted. No calf tenderness. Negative Homans sign bilaterally. NEUROLOGICAL: Awake and alert. Cranial nerves II through XII intact. Motor and sensory grossly within normal limits. patient does have symmetrical weakness in all extremities. Bilateral lower extremity reflexes -1 bilaterally. Normal speech. Laboratory Laboratory Tests Test 09/09/16 09/09/16 09/09/16 09/09/16 10:50 11:30 16:00 20:00 White Blood Count 8.8 Red Blood Count 4.53 Hemoglobin 13.3 Hematocrit 39.0 Mean Corpuscular Volume 85.9 Mean Corpuscular Hemoglobin 29.3 Mean Corpuscular Hemoglobin 34.1 Concent Red Cell Distribution Width 16.8 Platelet Count 249 Mean Platelet Volume 11.0 Neutrophils (%) (Auto) 54.3 Lymphocytes (%) (Auto) 23.6 Monocytes (%) (Auto) 16.1 Eosinophils (%) (Auto) 4.7 Basophils (%) (Auto) 1.3 Neutrophils # (Auto) 4.8 Lymphocytes # (Auto) 2.1 Monocytes # (Auto) 1.4 Eosinophils # (Auto) 0.4 Basophils # (Auto) 0.1 CBC Comment AUTO DIFF Differential Comment AUTO DIFF CONFIRMED Erythrocyte Sedimentation Rate 63 Sodium Level 135 133 Potassium Level 3.0 3.9 Chloride Level 96 95 Carbon Dioxide Level 32.3 30.9 Anion Gap 7 7 Blood Urea Nitrogen 40 40 Creatinine 3.31 3.39 Random Glucose 60 214 Hemoglobin A1c 7.3 Calcium Level 9.2 8.1 Total Bilirubin 1.8 Direct Bilirubin 1.2 Gamma Glutamyl Transpeptidase 1432 Aspartate Amino Transf 1023 (AST/SGOT) Alanine Aminotransferase 419 (ALT/SGPT) Alkaline Phosphatase 571 Total Creatine Kinase GREATER THAN GREATER THAN [id number] Creatine Kinase MB 24.5 23.8 Creatine Kinase MB % 0.0 0.0 Total Protein 10.0 Albumin 2.8 Lipase 379 Urine Color YELLOW Urine Turbidity CLEAR Urine pH 7.0 Urine Specific [place] 1.007 Urine Protein 100 Urine Glucose (UA) NEG Urine Ketones NEG Urine Occult Blood LARGE Urine Nitrite NEG Urine Bilirubin NEG Urine Urobilinogen LESS THAN 2.0 Urine Leukocyte Esterase NEG Urine RBC LESS THAN 1 Urine WBC 3 Urine Squamous Epithelial 1 Cells Urine Transitional Epithelial <1 Cells Urine Bacteria RARE Microscopic Urinalysis Comment CULT NOT INDICATED Urine Random Creatinine 58.1 Urine Random Sodium 41 Urine Opiates Screen NEG Urine Barbiturates Screen NEG Urine Amphetamines Screen NEG Urine Benzodiazepines Screen NEG Urine Cocaine Screen NEG Urine Cannabinoids Screen NEG Prothrombin Time 11.0 11.0 Prothromb Time International 1.0 1.0 Ratio Estimat Glomerular Filtration 16 Rate Iron Level 63 Total Iron Binding Capacity 333 Percent Iron Saturation 18.9 Ferritin 522 C-Reactive Protein 1.00 Thyroid Stimulating Hormone 0.691 3rd Gen Acetaminophen Level LESS THAN 2.0 Tumor Marker Alpha Fetoprotein 3.9 Result Diagram: 09/09/16 1050 09/09/16 1600 Imaging Last Impressions Abdomen/Pelvis CT 09/09/16 0000 Signed Impressions: Service Date/Time: Friday, September 09, 2016 12:27 - CONCLUSION: Normal liver, gallbladder and biliary tree. Multiple bilateral renal calyceal punctate stone is nonobstructive. Surgical absence of uterus. Degenerative changes of the lumbar spine Ghassan Swift MD Assessment and Plan Assessment and Plan //Rhabdomyolysis. Acute Markedly elevated CK at above 14,000 -ESR elevated. -hold statin medication. Continue IV fluids. Nephrology following. Appreciate assistance -Continue to follow CK, renal function //Acute kidney injury. -Creatinine 3.4 on admission. Baseline creatinine 1.3. -Urine workup ordered. -Nephrology following. Appreciate assistance. Discussed with nephrology. //Transaminitis. -Initially thought this was a false elevation secondary to rhabdomyolysis, however GGT is elevated. INR normal, liver function appears to be preserved at this time. Hepatitis profile. Gastroenterology consultation. Appreciate assistance //Hypokalemia on admission. Resolved. Avoid over replacement in setting of rhabdomyolysis. //Diabetes mellitus. //Hypoglycemia on admission. Acute. -Hypoglycemia likely secondary to decreased insulin clearance in the setting of renal failure. Also possibly secondary to hepatic impairment with decreased gluconeogenesis activity. -Initially managed on D5 on admission, however have given 10 mg of by mouth prednisone. We'll switch to normal saline as per nephrology Continue to monitor closely. Insulin sliding scale. //Worsening of chronic low back pain -Bilateral lower extremity weakness reported. Exam unremarkable -Possibly related to rhabdomyolysis -Imaging of lumbar spine. Neurology consultation //GERD. Continue home PPI //Hyperlipidemia. Chronic. Hold statin medication as this can cause rhabdo. //Hypertension. Blood pressure elevated on admission, however improved subsequently. Clonidine when necessary. Monitor closely. Continue home metoprolol. Start on nifedipine. //Prophylaxis. Heparin. Code Status full code. Discussed Condition With patient, nurse, at bedside, ED physician. Physician Certification 2 Midnight Certification Type: Admission for Inpatient Services Order for Inpatient Services The services are ordered in accordance with Medicare regulations or non- Medicare payer requirements, as applicable. In the case of services not specified as inpatient-only, they are appropriately provided as inpatient services in accordance with the 2-midnight benchmark. Estimated LOS (days): 4 days is the estimated time the patient will need to remain in the hospital, assuming treatment plan goals are met and no additional complications. Post-Hospital Plan: Not yet determined Paras Deleon MD Sep 09, 2016 23:32
[2016-09-10] VITALS (7 sets, daily range): BP systolic 137–180; BP diastolic 60–77; PULSE 51–90; RESP 18–20; TEMP 97.1–97.9; O2SAT 95–97
[2016-09-10] MEDS: ALPRAZolam 0.5 MG TAB PO PRN ×2 (01:45→23:01)
[2016-09-10] MEDS: HEPARIN SODIUM - SQ 10,000 UNITS/ML VIAL SQ SCH ×2 (01:46→15:38)
[2016-09-10] MEDS: SODIUM CHLOR 0.9% 1000 ML INJ 1,000 ML IV SCH ×3 (03:00→20:50)
[2016-09-10] MEDS: cloNIDine HCL 0.1 MG TAB PO PRN (05:53)
[2016-09-10] MEDS: INSULIN ASPART SUPPLEMENTAL SCALE SQ SCH ×4 (05:54→20:46)
[2016-09-10 06:42] LABS: AUTOMATED NEUTROPHIL # 4.8 TH/MM3 (1.8-7.7); BASOPHIL # 0.1 TH/MM3 (0-0.2); BASOPHIL % 0.8 % (0.0-2.0); EOSINOPHIL % 0.3 % (0.0-4.0); HEMO FLAGS DIFF FINAL; LYMPH % 21.3 % (9.0-44.0); LYMPHOCYTE # 1.6 TH/MM3 (1.0-4.8); MEAN CELL VOLUME 87.3 FL (80.0-100.0); MEAN CORPUSCULAR HEMOGLOBIN 29.6 PG (27.0-34.0); MEAN CORPUSCULAR HGB CONC 33.9 % (32.0-36.0); MONO % 14.8 % (0.0-8.0); NEUT % 62.8 % (16.0-70.0); PLATELET COUNT 190 TH/MM3 (150-450); RED BLOOD COUNT 4.01 MIL/MM3 (4.00-5.30); RED CELL DISTRIBUTION WIDTH 16.8 % (11.6-17.2); WHITE BLOOD COUNT 7.6 TH/MM3 (4.0-11.0)
[2016-09-10 06:53] LABS: ALT (GPT) 353 U/L (10-53); ANION GAP 8 MEQ/L (5-15); AST (GOT) 844 U/L (15-37); BICARBONATE 27.6 MEQ/L (21.0-32.0); BLOOD UREA NITROGEN 40 MG/DL (7-18); CHLORIDE 99 MEQ/L (98-107); GLOMERULAR FILTRATION RATE 20 ML/MIN (>89); POTASSIUM 3.3 MEQ/L (3.5-5.1); SODIUM (NA) 135 MEQ/L (136-145)
[2016-09-10 07:21] LABS: ALKALINE PHOSPHATASE 473 U/L (45-117); TOTAL BILIRUBIN ADULT 1.2 MG/DL (0.2-1.0); TOTAL PROTEIN SPE 8.6 GM/DL (6.0-7.6)
[2016-09-10 07:22] LABS: CREATINE KINASE GREATER THAN 14000 U/L (26-192)
[2016-09-10] MEDS ORDERED: POTASSIUM CHLORIDE 20 MEQ CONTROLLED RELEASE TAB PO ONE (07:45)
[2016-09-10 08:02] LABS: CKMB 22.9 NG/ML (0.5-3.6)
--- NOTE | 2016-09-10 09:23 | RADRPT ---
EXAM DATE/TIME: 09/10/2016 08:15 [place] COMPARISON: No previous studies available for comparison. INDICATIONS : Back pain, denies injury MEDICAL HISTORY : Hypertension. Diabetes mellitus type II. Renal failure, acute. SURGICAL HISTORY : Hysterectomy. ENCOUNTER: Initial ACUITY: >1 year PAIN SCORE: 8/10 LOCATION: Lumbar spine FINDINGS: Two view examination was performed. There are five non-rib bearing vertebral bodies. The vertebral b odies are normal in height. There is grade 1 anterolisthesis of L4 on L5. There is disc desiccation a nd vacuum phenomenon identified within the lower thoracic spine at the level of T10/T. 11 and T11/T12 and again at L5/S1. Facet degenerative changes are seen within the lower lumbar spine. The pedicles are intact. Bony mineralization is normal. No fracture is identified. CONCLUSION: Degenerative changes. No acute abnormality.. Farhana Guerrero MD on September 10, 2016 at 9:20 Board Certified Radiologist. This report was verified electronically.
[2016-09-10] MEDS: NIFEdipine 30 MG SUSTAINED RELEASE TAB PO SCH (09:47)
[2016-09-10] MEDS: PANTOPRAZOLE SOD 20 MG DELAYED RELEASE TAB PO SCH (09:47)
[2016-09-10] MEDS: METOPROLOL SUCCINATE 50 MG EXTENDED RELEASE TAB PO SCH (09:47)
[2016-09-10] MEDS: SODIUM CHLORIDE 0.9% FLUSH 5 ML FLUSH FLUSH SCH ×2 (09:47→20:46)
[2016-09-10] MEDS: ACETAMINOPHEN/HYDROcodone 325 MG/10 MG TAB PO PRN ×3 (09:47→23:01)
[2016-09-10 11:41] LABS: ALPHA 1 GLOBULIN 0.39 GM/DL (0.11-0.29); ALPHA 2 GLOBULIN 0.96 GM/DL (0.22-1.00); BETA GLOBULINS (SPE) 1.08 GM/DL (0.53-1.03)
--- NOTE | 2016-09-10 13:25 | HHI.NPPN ---
Subjective Complaints: Abdominal Pain, Obesity Renal Failure: Acute Interval History Lying in bed. She is having low back pain and muscle aches posterior thighs bilaterally. Renal function is better. She is Hep C positive. (Charlene Ramirez) Review of Systems Musculoskeletal MS: Pain/Stiffness MS Remarks back pain, thigh pain (Charlene Ramirez) Objective Data Data 09/09/16 09/10/16 19:00 07:00 Intake Total 1612 ml Output Total 625 ml Balance 987 ml Intake Oral 480 ml IV Total 1132 ml Output Urine Total 625 ml Vital Signs Date Time Temp Pulse Resp B/P Pulse Ox O2 Delivery O2 Flow Rate FiO2 09/10/16 12:00 97.5 53 20 153/73 95 09/10/16 12:00 97.5 53 20 153/73 95 Manual Cuff/Auscultation 09/10/16 08:00 97.5 53 19 137/60 96 09/10/16 05:48 97.7 90 20 180/73 96 174/71 09/10/16 00:00 97.9 58 18 173/77 95 09/09/16 21:30 171/83 162/79 09/09/16 20:00 98.8 62 20 201/83 99 180/90 09/09/16 20:00 60 09/09/16 18:15 98.1 81 20 183/84 97 09/09/16 17:16 54 16 169/89 98 Room Air 09/09/16 15:18 54 15 158/76 97 Room Air 09/09/16 14:27 52 15 187/81 97 Room Air (Charlene Ramirez) -: 09/10/16 0550 09/10/16 0550 Imaging Last 72 hours Impressions Lumbar Spine X-Ray 09/10/16 0600 Signed Impressions: Service Date/Time: August 08:15 - CONCLUSION: Degenerative changes. No acute abnormality.. Farhana Guerrero MD Abdomen/Pelvis CT 09/09/16 0000 Signed Impressions: Service Date/Time: Friday, September 09, 2016 12:27 - CONCLUSION: Normal liver, gallbladder and biliary tree. Multiple bilateral renal calyceal punctate stone is nonobstructive. Surgical absence of uterus. Degenerative changes of the lumbar spine Ghassan Swift MD (Charlene Ramirez) Physical Exam General Appearance: Well Developed, Well Nourished, No Acute Distress, Comfortable ( Charlene Ramirez) Eyes Eye Exam: Pupils Equal (Charlene Ramirez) Throat Throat Exam: Oral Mucosa [place] & Moist (Charlene Ramirez SOFTWARE PROGRAMMER) Pulmonary Resp Exam: Clear Bilaterally, Breath Sounds Equal, No Distress (Charlene Ramirez SOFTWARE PROGRAMMER) Cardiology CV Exam: Regular, Normal Sinus Rhythm, Good Perfusion (Charlene Ramirez) Gastrointestinal/Abdomen GI Exam: Soft, Non-Tender, Bowel Sounds Present GI Remarks obese (Charlene Ramirez) Musculoskeletal MS Exam: Joints Intact, Good Strength (Charlene Ramirez) Integumentary Skin Exam: Clear, Warm, Dry, Intact (Charlene Ramirez) Extremeties Extremities Exam: No Edema, Pedal Pulses Palpable (Charlene Ramirez) Neurologic Neuro Exam: Alert, Awake, Oriented, Speech Clear (Charlene Ramirez) Assessment/Plan Discussed Condition With: Patient, Spouse, Son Assessment Summary: MONIK/Acute Renal Failure, Proteinuria, Hypertension, Diabetes Mellitus Problem List: (1) Acute renal failure Plan: In 2012 her creatinine was normal; Per PCP records which I was able to obtain, Cr 1.11/BUN 27, GFR 60 in October 2015 has had proteinuria in the past, may have underlying diabetic nephropathy; protein quantification and serologies in process MONIK due to rhabdomyolysis, although she does report decreased oral intake for weeks renal function is better today CT showing non obstructing renal stones bilaterally she is non oliguric at this time continue IVF; 0.9% NS @ 100cc/hr give oral KCL if needed, encourage oral nutrition avoid nephrotoxins daily renal panel (2) Elevated LFTs Plan: Hep C positive, new diagnosis, hx of IV drug use in . no excess ETOH use/exposure she was on daily statin, avoid at this time CT not showing any gallstones GI is following (3) Rhabdomyolysis Plan: etiology may be medication related: it is noted that she is on Atorvastatin 20 mg daily at home. She has been on this since April 2016 and has not had any issues including myalgias since starting this medication; previously she was on Pravastatin 80 mg daily, it was changed to current med, pt unsure of reason for change avoid statins at this time follow CK levels, continue fluids neurology to be consulted (4) DMII (diabetes mellitus, type 2) Plan: fluctuant blood sugars yesterday, now in 200s insulin to be adjusted by hospitalist avoid oral hypoglycemics, goal 140-180 mg/dL (5) HTN (hypertension) Plan: monitor blood pressure, avoid ASH as she has had an allergy (? angioedema ) in past and also due to MONIK continue home medications, titrate as needed (Charlene Ramirez) Plan patient was seen and examined. Agree with above assessment and plan. Renal function has improved. Monitor CPK. Continue IVF. Replace potassium. (Pete Daley MD) Problem Qualifiers (1) Acute renal failure: Qualified Code: N17.9 - Acute renal failure, unspecified acute renal failure type (2) Rhabdomyolysis: Qualified Code: M62.82 - Non-traumatic rhabdomyolysis Charlene Ramirez Sep 10, 2016 13:25 Pete Daley MD Sep 10, 2016 14:50
[2016-09-10 17:30] LABS: UR UREA/CREAT RATIO 12.24 mg/mg (())
--- NOTE | 2016-09-10 18:03 | HHI.PR ---
Subjective Remarks Patient seen today at around 1 PM. She says she is feeling a little better. She denies any chest pain or shortness of breath. Reports that fatigue is little better. She continues to have muscle pain and bilateral posterior thighs. She is concerned about high blood sugars in the 100s. She says her blood sugars in the morning over the past couple weeks was consistently in the 40s. Objective Vital Signs Date Time Temp Pulse Resp B/P Pulse Ox O2 Delivery O2 Flow Rate FiO2 09/10/16 16:00 97.8 54 20 147/74 96 09/10/16 12:00 97.5 53 20 153/73 95 09/10/16 12:00 97.5 53 20 153/73 95 Manual Cuff/Auscultation 09/10/16 08:00 52 09/10/16 08:00 97.5 53 19 137/60 96 09/10/16 05:48 97.7 90 20 180/73 96 174/71 09/10/16 00:00 97.9 58 18 173/77 95 09/09/16 21:30 171/83 162/79 09/09/16 20:00 98.8 62 20 201/83 99 180/90 09/09/16 20:00 60 09/09/16 18:15 98.1 81 20 183/84 97 I/O 09/09/16 09/09/16 09/09/16 09/10/16 09/10/16 09/10/16 07:00 15:00 23:00 07:00 15:00 23:00 Intake Total 480 ml 1132 ml 1350 ml Output Total 625 ml Balance -145 ml 1132 ml 1350 ml Intake Oral 480 ml 600 ml IV Total 1132 ml 750 ml Output Urine Total 625 ml # Voids 2 # Bowel Movements 1 Result Diagram: 09/10/16 0550 09/10/16 0550 Imaging Last Impressions Lumbar Spine X-Ray 09/10/16 0600 Signed Impressions: Service Date/Time: August 08:15 - CONCLUSION: Degenerative changes. No acute abnormality.. Farhana Guerrero MD Abdomen/Pelvis CT 09/09/16 0000 Signed Impressions: Service Date/Time: Friday, September 09, 2016 12:27 - CONCLUSION: Normal liver, gallbladder and biliary tree. Multiple bilateral renal calyceal punctate stone is nonobstructive. Surgical absence of uterus. Degenerative changes of the lumbar spine Ghassan Swift MD Objective Remarks GENERAL: sitting up in bed. Appears comfortable. Alert and oriented 3. Appears in better spirits than yesterday. SKIN: Warm and dry. HEAD: Normocephalic. EYES: No scleral icterus. No injection or drainage. NECK: Supple, trachea midline. No JVD. CARDIOVASCULAR: Regular rate and rhythm without murmurs, gallops, or rubs. RESPIRATORY: Breath sounds equal bilaterally. No accessory muscle use. GASTROINTESTINAL: Abdomen soft, non-tender, nondistended. MUSCULOSKELETAL: No cyanosis, or edema. patient does report some tenderness in the bilateral posterior thighs, however this is mild. BACK: Nontender without obvious deformity. No CVA tenderness. A/P Assessment and Plan ====09/10/16 Kidney function improving Positive hepatitis C. Appreciate GI assistance. Elevated glucose. Had low-dose Levemir and monitor Follow-up neurology recommendations. //Rhabdomyolysis. Acute Markedly elevated CK at above 14,000 -ESR elevated in the 60s. -Continue to hold statin medication. - Nephrology following. Appreciate assistance -CK continues elevated, renal function improving. Continue to monitor. Continue IV fluids -Follow up neurology recommendations. //Acute kidney injury. -Creatinine 3.4 on admission. Baseline creatinine 1.3. -Urine workup ordered. -Nephrology following. Appreciate assistance. = 09/10. Creatinine improving 2.8. Continue fluids. //Transaminitis. -Initially thought this was a false elevation secondary to rhabdomyolysis, however GGT is elevated. INR normal, liver function appears to be preserved at this time. Hepatitis profile positive for hepatitis C antibody. Quantification ordered. -Gastroenterology following. Appreciate assistance. //Hypokalemia on admission. Improved.. Avoid over replacement in setting of rhabdomyolysis. -09/10. Status post by mouth potassium. Continue monitor. //Diabetes mellitus. //Hypoglycemia on admission. Acute. -Hypoglycemia likely secondary to decreased insulin clearance in the setting of renal failure. Also possibly secondary to hepatic impairment with decreased gluconeogenesis activity. Glucose had been in the 40s in the mornings prior to admission. -Initially managed on D5 on admission, given 10 mg of by mouth prednisone. Continues on normal saline. Continue to monitor closely. Insulin sliding scale. -09/10. Glucose now elevated in the 200s. Will add low-dose Levemir twice a day. Moving target, expect to require more insulin as kidneys improve. //Worsening of chronic low back pain -Bilateral lower extremity weakness reported. Exam unremarkable -Possibly related to rhabdomyolysis -Imaging of lumbar spine with only chronic changes. -Follow up Neurology consultation //GERD. Continue home PPI //Hyperlipidemia. Chronic. Hold statin medication as this can cause rhabdo. //Accelerated Hypertension on admission. Improving. Blood pressure elevated on admission, however improved subsequently. Clonidine when necessary. Monitor closely. Continue home metoprolol. -09/10 Continue nifedipine XL which was started on admission //Prophylaxis. Heparin. Discharge Planning continued treatment of rhabdomyolysis, renal failure Paras Deleon MD Sep 10, 2016 18:03
--- NOTE | 2016-09-10 19:44 | HHI.GIFU ---
GI Follow-up Note Consult Follow-up Subjective: Patient laying in bed comfortably, still weak, tired .no [place], vomiting, complaining of back pain . Hep c ab positive -we will need further investigation Objective: PHYSICAL EXAMINATION: Vitals signs stable No fever Vital Signs Date Time Temp Pulse Resp B/P Pulse Ox O2 Delivery O2 Flow Rate FiO2 09/10/16 16:00 97.8 54 20 147/74 96 09/10/16 12:00 97.5 53 20 153/73 95 09/10/16 12:00 97.5 53 20 153/73 95 Manual Cuff/Auscultation HEENT: Pupils round and reactive to light; normocephalic; atraumatic; jaundice. Throat is clear. NECK: Neck is supple, no JVD, no lymphadenopathy. CHEST: Chest is clear to auscultation and percussion. CARDIAC: Regular rate and rhythm with no murmur gallop or rubs. ABDOMEN: Soft, nondistended, nontender; no hepatosplenomegaly; bowel sounds are present in all four quadrants, obese EXTREMITIES: No clubbing, cyanosis, or edema. SKIN: Normal; no rash; jaundice. ONLINE MERCHANDISING MANAGER: No focal deficits; alert and oriented times three. Available Data (labs, X- Rays, Procedues) : Laboratory Tests Test 09/09/16 09/09/16 09/09/16 09/09/16 10:50 11:30 16:00 20:00 White Blood Count 8.8 TH/MM3 Red Blood Count 4.53 MIL/MM3 Hemoglobin 13.3 GM/DL Hematocrit 39.0 % Mean Corpuscular Volume 85.9 FL Mean Corpuscular Hemoglobin 29.3 PG Mean Corpuscular Hemoglobin 34.1 % Concent Red Cell Distribution Width 16.8 % Platelet Count 249 TH/MM3 Mean Platelet Volume 11.0 FL Neutrophils (%) (Auto) 54.3 % Lymphocytes (%) (Auto) 23.6 % Monocytes (%) (Auto) 16.1 % Eosinophils (%) (Auto) 4.7 % Basophils (%) (Auto) 1.3 % Neutrophils # (Auto) 4.8 TH/MM3 Lymphocytes # (Auto) 2.1 TH/MM3 Monocytes # (Auto) 1.4 TH/MM3 Eosinophils # (Auto) 0.4 TH/MM3 Basophils # (Auto) 0.1 TH/MM3 CBC Comment AUTO DIFF Differential Comment AUTO DIFF CONFIRMED Erythrocyte Sedimentation Rate 63 mm/hr Sodium Level 135 MEQ/L 133 MEQ/L Potassium Level 3.0 MEQ/L 3.9 MEQ/L Chloride Level 96 MEQ/L 95 MEQ/L Carbon Dioxide Level 32.3 MEQ/L 30.9 MEQ/L Anion Gap 7 MEQ/L 7 MEQ/L Blood Urea Nitrogen 40 MG/DL 40 MG/DL Creatinine 3.31 MG/DL 3.39 MG/DL Random Glucose 60 MG/DL 214 MG/DL Hemoglobin A1c 7.3 % Calcium Level 9.2 MG/DL 8.1 MG/DL Total Bilirubin 1.8 MG/DL Direct Bilirubin 1.2 MG/DL Gamma Glutamyl Transpeptidase 1432 U/L Aspartate Amino Transf 1023 U/L (AST/SGOT) Alanine Aminotransferase 419 U/L (ALT/SGPT) Alkaline Phosphatase 571 U/L Total Creatine Kinase GREATER THAN GREATER THAN 66703 U/L 38209 U/L Creatine Kinase MB 24.5 NG/ML 23.8 NG/ML Creatine Kinase MB % 0.0 % 0.0 % Total Protein 10.0 GM/DL Albumin 2.8 GM/DL Lipase 379 U/L Urine Color YELLOW Urine Turbidity CLEAR Urine pH 7.0 Urine Specific [place] 1.007 Urine Protein 100 mg/dL Urine Glucose (UA) NEG mg/dL Urine Ketones NEG mg/dL Urine Occult Blood LARGE Urine Nitrite NEG Urine Bilirubin NEG Urine Urobilinogen LESS THAN 2.0 MG/DL Urine Leukocyte Esterase NEG Urine RBC LESS THAN 1 /hpf Urine WBC 3 /hpf Urine Squamous Epithelial 1 /hpf Cells Urine Transitional Epithelial <1 /hpf Cells Urine Bacteria RARE /hpf Microscopic Urinalysis Comment CULT NOT INDICATED Urine Random Creatinine 58.1 MG/DL Urine Random Sodium 41 MEQ/L Urine Opiates Screen NEG Urine Barbiturates Screen NEG Urine Amphetamines Screen NEG Urine Benzodiazepines Screen NEG Urine Cocaine Screen NEG Urine Cannabinoids Screen NEG Urine Random Urea 710 mg/dL Urine Random Urea/Creatinine 12.24 mg/mg Ratio Urine Creatinine 58 mg/dL Prothrombin Time 11.0 SEC 11.0 SEC Prothromb Time International 1.0 RATIO 1.0 RATIO Ratio Estimat Glomerular Filtration 16 ML/MIN Rate Iron Level 63 MCG/DL Total Iron Binding Capacity 333 MCG/DL Percent Iron Saturation 18.9 % Ferritin 522 NG/ML C-Reactive Protein 1.00 MG/DL Thyroid Stimulating Hormone 0.691 uIU/ML 3rd Gen Acetaminophen Level LESS THAN 2.0 MCG/ML Hepatitis A IgM Antibody NEGATIVE Hepatitis B Surface Antigen NEGATIVE Hepatitis B Core IgM Antibody NEGATIVE Hepatitis C Antibody REACTIVE Tumor Marker Alpha Fetoprotein 3.9 NG/ML Test 09/10/16 09/10/16 05:50 06:40 White Blood Count 7.6 TH/MM3 Red Blood Count 4.01 MIL/MM3 Hemoglobin 11.9 GM/DL Hematocrit 35.0 % Mean Corpuscular Volume 87.3 FL Mean Corpuscular Hemoglobin 29.6 PG Mean Corpuscular Hemoglobin 33.9 % Concent Red Cell Distribution Width 16.8 % Platelet Count 190 TH/MM3 Mean Platelet Volume 11.5 FL Neutrophils (%) (Auto) 62.8 % Lymphocytes (%) (Auto) 21.3 % Monocytes (%) (Auto) 14.8 % Eosinophils (%) (Auto) 0.3 % Basophils (%) (Auto) 0.8 % Neutrophils # (Auto) 4.8 TH/MM3 Lymphocytes # (Auto) 1.6 TH/MM3 Monocytes # (Auto) 1.1 TH/MM3 Eosinophils # (Auto) 0.0 TH/MM3 Basophils # (Auto) 0.1 TH/MM3 CBC Comment DIFF FINAL Differential Comment Sodium Level 135 MEQ/L Potassium Level 3.3 MEQ/L Chloride Level 99 MEQ/L Carbon Dioxide Level 27.6 MEQ/L Anion Gap 8 MEQ/L Blood Urea Nitrogen 40 MG/DL Creatinine 2.83 MG/DL Estimat Glomerular Filtration 20 ML/MIN Rate Random Glucose 269 MG/DL Calcium Level 8.6 MG/DL Total Bilirubin 1.2 MG/DL Aspartate Amino Transf 844 U/L (AST/SGOT) Alanine Aminotransferase 353 U/L (ALT/SGPT) Alkaline Phosphatase 473 U/L Total Creatine Kinase GREATER THAN 97488 U/L Creatine Kinase MB 22.9 NG/ML Creatine Kinase MB % 0.0 % Total Protein 8.6 GM/DL Albumin 2.80 GM/DL Albumin/Globulin Ratio 0.48 Qwzrk-1-Kqzeqklgx 0.39 GM/DL Utrye-1-Ykqabxrsm 0.96 GM/DL Beta Globulins 1.08 GM/DL Gamma Globulins 3.36 GM/DL Electrophoresis Pathologist Comment Complement C3 170 MG/DL Complement C4 25 MG/DL Urine Myoglobin GREATER THAN 5000 mcg/L ASSESSMENT/PLAN: elevated lfts unclear etiology - picture suggestive of hepatitis concern for autoimmune process in view of elevated bun/cr and rhabdomyolysis, possible drug effect hepatitis c ab positive -needs further work-up Recommendations lfts, pt/inr , cbc daily fu labs consult IR for ct guided liver biopsy in am cryoglobulin levels, hep c by pcr if worsening liver enzymes consider transfer to tertiary center It was a pleasure seeing Fabian Angeles Thank you for this consult. Entered by: Shilpi Delgadillo MD Sep 10, 2016 19:44
[2016-09-10] MEDS: INSULIN DETEMIR 100 UNITS/ML VIAL SQ SCH (20:46)
[2016-09-10 22:11] LABS: PROTHROMBIN TIME - PATIENT 11.3 SEC (9.8-11.6)
[2016-09-10 22:21] LABS: ANION GAP 8 MEQ/L (5-15); AST (GOT) 881 U/L (15-37); BICARBONATE 27.7 MEQ/L (21.0-32.0); BLOOD UREA NITROGEN 39 MG/DL (7-18); CHLORIDE 98 MEQ/L (98-107); GLOMERULAR FILTRATION RATE 22 ML/MIN (>89); POTASSIUM 3.6 MEQ/L (3.5-5.1); SODIUM (NA) 134 MEQ/L (136-145)
[2016-09-10 22:24] LABS: ALKALINE PHOSPHATASE 467 U/L (45-117); ALT (GPT) 377 U/L (10-53); TOTAL BILIRUBIN ADULT 1.3 MG/DL (0.2-1.0)
[2016-09-10 23:19] LABS: MICRO ALBUMIN RANDOM URINE RAW 80.7 MG/L (0.0-30.0)
[2016-09-11] VITALS (15 sets, daily range): BP systolic 140–193; BP diastolic 65–96; PULSE 49–56; RESP 18–25; TEMP 97.3–98.4; O2SAT 90–98
[2016-09-11] MEDS: HEPARIN SODIUM - SQ 10,000 UNITS/ML VIAL SQ SCH ×2 (01:09→10:27)
[2016-09-11] MEDS: INSULIN ASPART SUPPLEMENTAL SCALE SQ SCH ×3 (06:01→21:00)
--- NOTE | 2016-09-11 08:11 | MB ---
cc: YURIY CANO DATE OF CONSULTATION: 09/10/2016 REASON FOR CONSULTATION Rhabdomyolysis. HISTORY OF PRESENT ILLNESS Ms. Angeles is a 66-year-old female who began a couple of weeks ago to develop significant nausea and vomiting and epigastric pain. She felt a sense of malaise and generalized weakness. No focal deficit. She did have some pain in her upper and lower extremities. She was found to have an elevated CPK on admission at 14,000 with an elevated sedimentation rate of 63. She was found to have reactive hepatitis C antibody, negative hepatitis B and A antibodies. PAST MEDICAL HISTORY 1. Hypertension. 2. Anxiety. 3. Hyperlipidemia. 4. Insulin dependent diabetes. 5. GERD. 6. Vitiligo. 7. Coronary artery disease. 8. Esophageal stricture. PAST SURGICAL HISTORY 1. Hysterectomy. 2. Carpal tunnel release. MEDICATIONS Current medications: 1. Levemir insulin. 2. Protonix. 3. Toprol XL. 4. Procardia XL. 5. Xanax. 6. Catapres. 7. [place]. 8. Subcu heparin. 9. . 10. She was on atorvastatin which has been discontinued. NEUROLOGIC EXAMINATION Blood pressure 147/74, pulse 54, respirations 20, temperature 97 degrees. Higher cortical function is normal. Cranial nerves II-XII are normal in detail. On motor examination she has 5/5 strength of the deltoids symmetrically, 5/5 biceps and triceps symmetric, 5/5 interossei symmetric. She does have some give-way weakness in the iliopsoas symmetric 4/5. IMAGING Lumbar spine x-rays reveal degenerative arthritis. LABORATORY DATA CBC reveals a white count of 7600, hemoglobin 11.9, hematocrit 35%, platelet count 190,000. Sed rate 63. CPK 14,000. GFR 20. Albumin 8.6. AST 844, ALT 353. IMPRESSION Elevated CPK. At this time I do not find any definite signs to suggest myopathy or polymyositis, although this would be a consideration. However, her strength appears to be within normal limits. She does not have severe muscle tenderness. She has some mild weakness of the legs which is probably give-way weakness. RECOMMENDATION Continue to follow the CPK. If it remains elevated without any appreciable decrease, consider further evaluation with EMG or muscle biopsy. MD MELONIE Moore /7:07 PM /8:01
[2016-09-11] MEDS: INSULIN DETEMIR 100 UNITS/ML VIAL SQ SCH ×2 (08:28→21:08)
[2016-09-11] MEDS: PANTOPRAZOLE SOD 20 MG DELAYED RELEASE TAB PO SCH (08:28)
[2016-09-11] MEDS: METOPROLOL SUCCINATE 50 MG EXTENDED RELEASE TAB PO SCH (08:28)
[2016-09-11] MEDS: NIFEdipine 30 MG SUSTAINED RELEASE TAB PO SCH (08:28)
[2016-09-11] MEDS: ACETAMINOPHEN/HYDROcodone 325 MG/10 MG TAB PO PRN ×2 (08:29→21:09)
[2016-09-11 08:30] LABS: ANION GAP 7 MEQ/L (5-15); BICARBONATE 28.2 MEQ/L (21.0-32.0); CHLORIDE 101 MEQ/L (98-107); GLOMERULAR FILTRATION RATE 24 ML/MIN (>89); POTASSIUM 3.4 MEQ/L (3.5-5.1); SODIUM (NA) 136 MEQ/L (136-145)
[2016-09-11] MEDS: SODIUM CHLORIDE 0.9% FLUSH 5 ML FLUSH FLUSH SCH ×2 (08:33→21:00)
[2016-09-11] MEDS: SODIUM CHLOR 0.9% 1000 ML INJ 1,000 ML IV SCH ×2 (08:34→21:10)
[2016-09-11 08:36] LABS: BLOOD UREA NITROGEN 38 MG/DL (7-18)
[2016-09-11] MEDS: POTASSIUM CHLORIDE 20 MEQ CONTROLLED RELEASE TAB PO SCH (10:26)
[2016-09-11 11:05] LABS: ALT (GPT) 391 U/L (10-53); AST (GOT) 868 U/L (15-37)
[2016-09-11 11:06] LABS: ALKALINE PHOSPHATASE 431 U/L (45-117); TOTAL BILIRUBIN ADULT 1.3 MG/DL (0.2-1.0)
[2016-09-11 11:07] LABS: INDIRECT BILIRUBIN 0.6 MG/DL (0.0-0.8)
[2016-09-11] MEDS: cloNIDine HCL 0.1 MG TAB PO PRN ×2 (12:25→17:29)
[2016-09-11 13:42] LABS: CREATINE KINASE GREATER THAN 14000 U/L (26-192)
[2016-09-11 13:56] LABS: CKMB 32.6 NG/ML (0.5-3.6)
[2016-09-11] MEDS ORDERED: LIDOCAINE 1%/EPINEPHrine 1:100,000 SOLN 20 ML VIAL ONE (14:08)
[2016-09-11] MEDS ORDERED: fentaNYL CITRATE 250 MCG/5 ML AMP ONE (14:55)
[2016-09-11] MEDS ORDERED: MIDAZOLAM HCL 5 MG/5 ML VIAL ONE (14:55)
--- NOTE | 2016-09-11 16:08 | HHI.NPPN ---
Subjective Complaints: Abdominal Pain, Obesity Renal Failure: Acute Interval History Renal function continues to improve. To have liver biopsy today. (Charlene Ramirez) Review of Systems Musculoskeletal MS: Pain/Stiffness MS Remarks back pain, thigh pain (Charlene Ramirez) Objective Data Data 09/10/16 09/11/16 19:00 07:00 Intake Total 1350 ml 670 ml Output Total 200 ml Balance 1350 ml 470 ml Intake Oral 600 ml 670 ml IV Total 750 ml Output Urine Total 200 ml # Voids 2 1 # Bowel Movements 1 Vital Signs Date Time Temp Pulse Resp B/P Pulse Ox O2 Delivery O2 Flow Rate FiO2 09/11/16 12:27 97.3 50 18 184/77 96 09/11/16 08:21 97.7 50 19 175/79 96 09/11/16 04:00 97.4 50 18 140/80 96 09/11/16 00:00 98.0 50 18 158/74 97 09/10/16 20:05 51 09/10/16 20:00 97.1 53 18 144/63 97 (Charlene Ramirez) -: 09/10/16 0550 09/11/16 0706 Imaging Last 72 hours Impressions Lumbar Spine X-Ray 09/10/16 0600 Signed Impressions: Service Date/Time: August 08:15 - CONCLUSION: Degenerative changes. No acute abnormality.. Farhana Guerrero MD Abdomen/Pelvis CT 09/09/16 0000 Signed Impressions: Service Date/Time: Friday, September 09, 2016 12:27 - CONCLUSION: Normal liver, gallbladder and biliary tree. Multiple bilateral renal calyceal punctate stone is nonobstructive. Surgical absence of uterus. Degenerative changes of the lumbar spine Ghassan Swift MD (Charlene Ramirez) Physical Exam General Appearance: Well Developed, Well Nourished, No Acute Distress, Comfortable ( Charlene Ramirez) Eyes Eye Exam: Pupils Equal (Charlene Ramirez) Throat Throat Exam: Oral Mucosa [place] & Moist (Charlene Ramirez) Pulmonary Resp Exam: Clear Bilaterally, Breath Sounds Equal, No Distress (Charlene Ramirez) Cardiology CV Exam: Regular, Normal Sinus Rhythm, Good Perfusion (Charlene Ramirez) Gastrointestinal/Abdomen GI Exam: Soft, Non-Tender, Bowel Sounds Present GI Remarks obese (Charlene Ramirez) Musculoskeletal MS Exam: Joints Intact, Good Strength (Charlene Ramirez) Integumentary Skin Exam: Clear, Warm, Dry, Intact (Charlene Ramirez) Extremeties Extremities Exam: No Edema, Pedal Pulses Palpable (Charlene Ramirez) Neurologic Neuro Exam: Alert, Awake, Oriented, Speech Clear (Charlene Ramirez) Assessment/Plan Discussed Condition With: Patient, Spouse, Son Assessment Summary: MONIK/Acute Renal Failure, Proteinuria, Hypertension, Diabetes Mellitus Problem List: (1) Acute renal failure Plan: In 2012 her creatinine was normal; Per PCP records which I was able to obtain, Cr 1.11/BUN 27, GFR 60 in October 2015 has had proteinuria in the past, may have underlying diabetic nephropathy; less than one gram proteinuria; so far serologies are negative as are complement levels MONIK due to rhabdomyolysis, although she does report decreased oral intake for weeks renal function improving daily CT showing non obstructing renal stones bilaterally she is non oliguric at this time continue IVF; 0.9% NS @ 100cc/hr give oral KCL daily, encourage oral nutrition avoid nephrotoxins daily renal panel (2) Elevated LFTs Plan: liver biopsy scheduled for today, GI following Hep C positive, new diagnosis, hx of IV drug use in 1970s. per hx, no excess ETOH use/exposure she was on daily statin, avoid at this time CT not showing any gallstones (3) Rhabdomyolysis Plan: fulminant, etiology may be medication related: due to Atorvastatin , although it was very low dose she has not had any issues including myalgias since starting this medication; previously she was on Pravastatin 80 mg daily avoid statins at this time follow CK levels, continue fluids neurology has been consulted, may require muscle biopsy and/or EMG in the future (4) DMII (diabetes mellitus, type 2) Plan: Blood sugars in 200s continue insulin, and avoid oral hypoglycemics, goal 140-180 mg/dL (5) HTN (hypertension) Plan: monitor blood pressure, avoid ASH as she has had an allergy (? angioedema ) in past and also due to MONIK continue home medications, titrate as needed (Charlene Ramirez) Plan patient was seen and examined. Renal function has improved. Taper off fluids. Complement levels are normal, unlikely to be Cryoglobulinemic GN. CPK is remaining high, continue to monitor. (Pete Daley MD) Problem Qualifiers (1) Acute renal failure: Qualified Code: N17.9 - Acute renal failure, unspecified acute renal failure type (2) Rhabdomyolysis: Qualified Code: M62.82 - Non-traumatic rhabdomyolysis Charlene Ramirez Sep 11, 2016 16:08 Pete Daley MD Sep 11, 2016 16:28
--- NOTE | 2016-09-11 16:13 | HHI.PR ---
Subjective Remarks Patient seen today around noon. Says she is feeling a little better. Denies any chest pain or shortness of breath. She reports achy muscle pain all over however. Denies any nausea or vomiting. received call from radiology around 4 PM. Status post upper biopsy. Possible subcapsular hematoma. Radiology monitoring, will transfer to ICU if necessary. Appreciate assistance. Objective Vital Signs Date Time Temp Pulse Resp B/P Pulse Ox O2 Delivery O2 Flow Rate FiO2 09/11/16 12:27 97.3 50 18 184/77 96 09/11/16 08:21 97.7 50 19 175/79 96 09/11/16 04:00 97.4 50 18 140/80 96 09/11/16 00:00 98.0 50 18 158/74 97 09/10/16 20:05 51 09/10/16 20:00 97.1 53 18 144/63 97 I/O 09/10/16 09/10/16 09/10/16 09/11/16 09/11/16 09/11/16 07:00 15:00 23:00 07:00 15:00 23:00 Intake Total 1132 ml 1350 ml 310 ml 360 ml Output Total 200 ml Balance 1132 ml 1350 ml 110 ml 360 ml Intake Oral 600 ml 310 ml 360 ml IV Total 1132 ml 750 ml Output Urine Total 200 ml # Voids 2 1 # Bowel Movements 1 Result Diagram: 09/10/16 0550 09/11/16 0706 Objective Remarks GENERAL: sitting up in bed. Appears comfortable. Alert and oriented 3. Appears in good mood. SKIN: Warm and dry. HEAD: Normocephalic. EYES: No scleral icterus. No injection or drainage. NECK: Supple, trachea midline. No JVD. CARDIOVASCULAR: Regular rate and rhythm without murmurs, gallops, or rubs. RESPIRATORY: Breath sounds equal bilaterally. No accessory muscle use. GASTROINTESTINAL: Abdomen soft, non-tender, nondistended. MUSCULOSKELETAL: No cyanosis, or edema. still some tenderness in the bilateral posterior thighs, however this is mild. BACK: Nontender without obvious deformity. No CVA tenderness. A/P Assessment and Plan ====09/11/16 Kidney function continues improving Positive hepatitis C. Appreciate GI assistance. Elevated glucose. Increase Levemir. Continue to monitor. liver biopsy today. //Rhabdomyolysis. Acute Markedly elevated CK at above 14,000 -ESR elevated in the 60s. -Continue to hold statin medication. - Nephrology following. Appreciate assistance -CK continues elevated, renal function improving. Continue to monitor. Continue IV fluids -Neurology following. Appreciate assistance. Patient may need EMG or muscle biopsy if no improvement. //Acute kidney injury. -Creatinine 3.4 on admission. Baseline creatinine 1.3. -Urine workup ordered. -Nephrology following. Appreciate assistance. = 09/10. Creatinine improving 2.8. Continue fluids. -09/11. Creatinine continues improving. Continue fluids. //Transaminitis. //Hepatitis C positive -Initially thought this was a false elevation secondary to rhabdomyolysis, however GGT is elevated. INR normal, liver function appears to be preserved at this time. Hepatitis profile positive for hepatitis C antibody. Quantification ordered. -Gastroenterology following. Appreciate assistance. -09/11. Liver biopsy pending. Discussed with Dr. Burgess in radiology. Possible subcapsular hematoma. Etiology monitoring patient, will transfer to unit if necessary. Appreciate assistance. //Hypokalemia on admission. Improved.. Avoid over replacement in setting of rhabdomyolysis. -09/10. Status post by mouth potassium. Continue monitor. 09/11. Potassium slightly low. Continue to monitor. //Diabetes mellitus. //Hypoglycemia on admission. Acute. -Hypoglycemia likely secondary to decreased insulin clearance in the setting of renal failure. Also possibly secondary to hepatic impairment with decreased gluconeogenesis activity. Glucose had been in the 40s in the mornings prior to admission. -Initially managed on D5 on admission, given 10 mg of by mouth prednisone. Continues on normal saline. Continue to monitor closely. Insulin sliding scale. -09/10. Glucose now elevated in the 200s. Will add low-dose Levemir twice a day. Moving target, expect to require more insulin as kidneys improve. 09/11. Glucose continues elevated. We'll increase Levemir again. //Worsening of chronic low back pain -Bilateral lower extremity weakness reported. Exam unremarkable -Possibly related to rhabdomyolysis -Imaging of lumbar spine with only chronic changes. -Appreciate neurology assistance. No acute findings. //GERD. Continue home PPI //Hyperlipidemia. Chronic. Hold statin medication as this can cause rhabdo. //Accelerated Hypertension on admission. Improving. Blood pressure elevated on admission, however improved subsequently. Clonidine when necessary. Monitor closely. Continue home metoprolol. -09/10 Continue nifedipine XL which was started on admission -09/11. Continues elevated. Increased nifedipine. Cortisol ordered //Prophylaxis. Heparin. Discharge Planning continued treatment of rhabdomyolysis, renal failure Paras Deleon MD Sep 11, 2016 16:13
[2016-09-11] MEDS ORDERED: NIFEdipine 30 MG SUSTAINED RELEASE TAB PO ONE (16:15)
--- NOTE | 2016-09-11 16:16 | RADRPT ---
EXAM DATE/TIME: 09/11/2016 15:19 This report includes an Addendum and supersedes previous reports for this exam. [facility] COMPARISON: No previous studies available for comparison. INDICATIONS : Elevated LFTs. SEDATION TIME: 30 minutes BIOPSY SITE: Right liver MEDICATION(S): 1.) 2 mg midazolam (Versed) IV 2.) 100 mcg fentanyl (Sublimaze) IV DEVICE(S): 1.) 10 Fr BioPince needle MEDICAL HISTORY : Hypertension. Cardiovascular disease. Diabetes mellitus type 2. SURGICAL HISTORY : Hysterectomy. ENCOUNTER: Initial ACUITY: 1 day PAIN SCORE: 0/10 LOCATION: Right liver A total of one core specimen(s) were obtained and sent to the laboratory for pathologic evaluation. PROCEDURE: 1. CT guided liver biopsy. 2. Conscious sedation with continuous EKG and oximetry monitoring. 3. EKG and oximetry remained stable throughout the procedure. Prior to the procedure informed consent was obtained. Any appropriate prior imaging studies were rev iewed. The site was prepped in a sterile fashion. Full sterile technique was used, including cap, mask, kaylene rile gloves and gown and a large sterile sheet. Hand hygiene and 2% chlorhexidine and/or betadine/al cohol prep was utilized per protocol for cutaneous antisepsis. The skin and subcutaneous tissues wer e infiltrated with local anesthetic solution. Under CT guidance access the access was obtained to the liver missing breast tissue and gallbladder. 18 gauge core was obtained. Follow-up CT scan reveals subscapular fluid collection. The patient tolerated the procedure well and there were no complications. The patient was returned to the Radiology Outpatient Unit in stable condition. CONCLUSION: Liver biopsy with small subcapsular hematoma. This will be followed carefully. Chaz Burgess MD FACR on September 11, 2016 at 16:10 Board Certified Radiologist. This report was verified electronically. ADDENDUM: Discussed with Dr. Mills. Patient will be placed in the intensive care for close observation. Re peat H&H is pending. Chaz Burgess MD FACR on September 11, 2016 at 17:43 Board Certified Radiologist. This report was verified electronically.
[2016-09-11 17:42] LABS: HEMATOCRIT 36.2 % (35.0-46.0)
[2016-09-11] MEDS ORDERED: cloNIDine HCL 0.1 MG TAB PO ONE (17:45)
[2016-09-11] MEDS ORDERED: CHLORHEXIDINE GLUCONATE 2 % 1 PACK (2 CLOTHS)(extra cloths) TOP PRN (19:00)
--- NOTE | 2016-09-11 19:50 | HHI.PR ---
Review/Management Diagnosis possible inflammatory myopathy Plan follow up liver bx consider muscle biopsy Diagnosis/Plan: Subjective Subjective Comments No acute events reported s/p liver bx Active Medications Current Medications Medications (Trade) Dose Ordered Sig/Chantel Route Start Time Stop Time Status Last Admin (NS Flush) 2 ml UNSCH PRN FLUSH 09/09/16 13:00 (NS Flush) 2 ml BID FLUSH 09/09/16 21:00 09/11/16 08:33 (Heparin Inj) 5,000 units Q12H SQ 09/09/16 14:00 09/11/16 01:09 (Narcan Inj) 0.4 mg UNSCH PRN IV 09/09/16 13:00 (Catapres) 0.1 mg Q6H PRN PO 09/09/16 13:00 09/11/16 17:29 (D50w (Vial) Inj) 25 ml UNSCH PRN IV PUSH 09/09/16 13:15 09/09/16 13:42 Glucagon 1 mg 1 mg UNSCH PRN OTHER 09/09/16 13:15 (NS 1000 ml Inj) 1,000 ml @ 100 mls/hr Q10H IV 09/09/16 17:00 09/11/16 08:34 ([place] 10-325 Mg) 1 tab Q6H PRN PO 09/09/16 21:30 09/11/16 08:29 (Xanax) 0.5 mg Q4H PRN PO 09/09/16 23:00 09/10/16 23:01 (Protonix) 20 mg DAILY PO 09/10/16 09:00 09/11/16 08:28 (Toprol Xl) 100 mg DAILY PO 09/10/16 09:00 09/11/16 08:28 (KCl) 20 meq DAILY PO 09/11/16 10:15 09/11/16 10:26 (Levemir Inj) 8 units Q12HR SQ 09/11/16 21:00 (Procardia Xl) 60 mg DAILY PO 09/12/16 09:00 Miscellaneous Information Patient in critical care unit? Ass... [id number] XX 09/11/16 19:00 (Chlorhexidine 2% Cloth) 3 pack DAILY@04 TOP 09/12/16 04:00 09/16/16 04:01 (Chlorhexidine 2% Cloth) 3 pack UNSCH PRN TOP 09/11/16 19:00 09/16/16 18:49 Allergies Allergies Coded Allergies Flexeril (Verified Adverse Reaction, Mild, UPSET STOMACH, 09/09/16) Exam I&O / VS 09/10/16 09/10/16 09/11/16 15:00 23:00 07:00 Intake Total 1350 ml 310 ml 360 ml Output Total 200 ml Balance 1350 ml 110 ml 360 ml Intake Oral 600 ml 310 ml 360 ml IV Total 750 ml Output Urine Total 200 ml # Voids 2 1 # Bowel Movements 1 Vital Signs Date Time Temp Pulse Resp B/P Pulse Ox O2 Delivery O2 Flow Rate FiO2 09/11/16 18:48 51 09/11/16 18:47 97.7 51 20 162/72 98 09/11/16 18:00 49 20 147/65 97 09/11/16 17:30 52 18 171/74 97 09/11/16 17:00 52 20 193/88 94 09/11/16 16:45 56 20 191/96 95 09/11/16 16:30 55 20 176/88 98 09/11/16 16:15 52 20 171/82 95 09/11/16 16:05 97.8 54 20 178/84 90 09/11/16 12:27 97.3 50 18 184/77 96 09/11/16 08:21 97.7 50 19 175/79 96 09/11/16 04:00 97.4 50 18 140/80 96 09/11/16 00:00 98.0 50 18 158/74 97 09/10/16 20:05 51 09/10/16 20:00 97.1 53 18 144/63 97 Exam Comments alert oriented, speech normal CN 2-12 normal Motor --4/5 proximal UE and proximal LE. 5/5 distal strength Objective Micro and Labs Laboratory Tests Test 09/10/16 09/10/16 09/11/16 09/11/16 21:14 22:30 07:06 17:32 Prothrombin Time 11.3 Prothromb Time International 1.0 Ratio Sodium Level 134 136 Potassium Level 3.6 3.4 Chloride Level 98 101 Carbon Dioxide Level 27.7 28.2 Anion Gap 8 7 Blood Urea Nitrogen 39 38 Creatinine 2.67 2.42 Estimat Glomerular Filtration 22 24 Rate Random Glucose 304 253 Calcium Level 8.2 8.4 Total Bilirubin 1.3 1.3 Aspartate Amino Transf 881 868 (AST/SGOT) Alanine Aminotransferase 377 391 (ALT/SGPT) Alkaline Phosphatase 467 431 Ammonia 40 Total Protein 8.7 8.8 Albumin 2.5 2.5 Urine Random Creatinine 30 Urine Microalbumin/Creatinine 269 Ratio Phosphorus Level 2.9 Direct Bilirubin 0.7 Indirect Bilirubin 0.6 Total Creatine Kinase GREATER THAN 83685 Creatine Kinase MB 32.6 Creatine Kinase MB % 0.0 Hemoglobin 12.5 Hematocrit 36.2 Random Cortisol 10.6 Jamison Carter. PhD Sep 11, 2016 19:50
[2016-09-11] MEDS: ALPRAZolam 0.5 MG TAB PO PRN (21:08)
[2016-09-11] MEDS ORDERED: DEXTROSE 10% INJ 1,000 ML IV SCH (23:15)
[2016-09-12] VITALS (12 sets, daily range): BP systolic 115–175; BP diastolic 54–90; PULSE 53–69; RESP 14–27; TEMP 98.1–98.6; O2SAT 95–100
[2016-09-12] MEDS: CHLORHEXIDINE GLUCONATE 2 % 1 PACK (2 CLOTHS)(taper/protocol) TOP SCH (04:00)
[2016-09-12] MEDS: HEPARIN SODIUM - SQ 10,000 UNITS/ML VIAL SQ SCH ×2 (05:58→12:42)
[2016-09-12] MEDS: SODIUM CHLOR 0.9% 1000 ML INJ 1,000 ML IV SCH ×2 (05:59→12:42)
[2016-09-12] MEDS: INSULIN ASPART SUPPLEMENTAL SCALE SQ SCH ×3 (06:10→16:00)
[2016-09-12 06:57] LABS: AUTOMATED NEUTROPHIL # 5.5 TH/MM3 (1.8-7.7); BASOPHIL # 0.1 TH/MM3 (0-0.2); BASOPHIL % 1.1 % (0.0-2.0); EOSINOPHIL # 0.2 TH/MM3 (0-0.4); EOSINOPHIL % 1.8 % (0.0-4.0); HEMATOCRIT 35.9 % (35.0-46.0); HEMO FLAGS DIFF FINAL; LYMPH % 23.8 % (9.0-44.0); LYMPHOCYTE # 2.1 TH/MM3 (1.0-4.8); MEAN CELL VOLUME 88.4 FL (80.0-100.0); MEAN CORPUSCULAR HEMOGLOBIN 29.7 PG (27.0-34.0); MEAN CORPUSCULAR HGB CONC 33.6 % (32.0-36.0); MONO % 10.7 % (0.0-8.0); NEUT % 62.6 % (16.0-70.0); PLATELET COUNT 216 TH/MM3 (150-450); RED BLOOD COUNT 4.07 MIL/MM3 (4.00-5.30); WHITE BLOOD COUNT 8.7 TH/MM3 (4.0-11.0)
[2016-09-12 08:09] LABS: ALKALINE PHOSPHATASE 432 U/L (45-117); ALT (GPT) 368 U/L (10-53); ANION GAP 10 MEQ/L (5-15); AST (GOT) 716 U/L (15-37); BICARBONATE 25.5 MEQ/L (21.0-32.0); BLOOD UREA NITROGEN 30 MG/DL (7-18); CHLORIDE 102 MEQ/L (98-107); CREATINE KINASE 9124 U/L (26-192); GLOMERULAR FILTRATION RATE 30 ML/MIN (>89); POTASSIUM 3.7 MEQ/L (3.5-5.1); SODIUM (NA) 137 MEQ/L (136-145); TOTAL BILIRUBIN ADULT 1.5 MG/DL (0.2-1.0)
--- NOTE | 2016-09-12 08:12 | HHI.CCPN ---
Subjective Remarks/Hospital Course 09/12 No acute events overnight. Patient is lying in bed in NAD. Afebrile. H/H stable. s/p CT guided liver biopsy yesterday. Objective Vital Signs Date Time Temp Pulse Resp B/P Pulse Ox O2 Delivery O2 Flow Rate FiO2 09/12/16 06:00 54 09/12/16 04:00 98.6 14 116/54 95 09/09/16 17:16 Room Air Intake and Output 09/11/16 09/11/16 09/12/16 08:00 16:00 00:00 Intake Total 360 ml 640 ml Output Total 950 ml Balance 360 ml -310 ml Result Diagram: 09/12/16 0534 09/11/16 0706 Other Results Laboratory Tests Test 09/11/16 09/11/16 09/12/16 17:32 18:40 05:34 Hemoglobin 12.5 GM/DL 12.1 GM/DL Hematocrit 36.2 % 35.9 % Random Cortisol 10.6 MCG/DL Nasal Screen MRSA (PCR) NEGATIVE White Blood Count 8.7 TH/MM3 Red Blood Count 4.07 MIL/MM3 Mean Corpuscular Volume 88.4 FL Mean Corpuscular Hemoglobin 29.7 PG Mean Corpuscular Hemoglobin 33.6 % Concent Red Cell Distribution Width 17.0 % Platelet Count 216 TH/MM3 Mean Platelet Volume 11.7 FL Neutrophils (%) (Auto) 62.6 % Lymphocytes (%) (Auto) 23.8 % Monocytes (%) (Auto) 10.7 % Eosinophils (%) (Auto) 1.8 % Basophils (%) (Auto) 1.1 % Neutrophils # (Auto) 5.5 TH/MM3 Lymphocytes # (Auto) 2.1 TH/MM3 Monocytes # (Auto) 0.9 TH/MM3 Eosinophils # (Auto) 0.2 TH/MM3 Basophils # (Auto) 0.1 TH/MM3 CBC Comment DIFF FINAL Differential Comment Imaging Last Impressions Liver Biopsy CT 09/11/16 0000 Signed Impressions: Service Date/Time: Sunday, September 11, 2016 15:19 - CONCLUSION: Liver biopsy with small subcapsular hematoma. This will be followed carefully. Chaz Burgess MD FACRADDENDUM: Discussed with Dr. Mills. Patient will be placed in the intensive care for close observation. Repeat H&H is pending. Chaz Burgess MD FACR Lumbar Spine X-Ray 09/10/16 0600 Signed Impressions: Service Date/Time: August 08:15 - CONCLUSION: Degenerative changes. No acute abnormality.. Farhana Guerrero MD Abdomen/Pelvis CT 09/09/16 0000 Signed Impressions: Service Date/Time: Friday, September 09, 2016 12:27 - CONCLUSION: Normal liver, gallbladder and biliary tree. Multiple bilateral renal calyceal punctate stone is nonobstructive. Surgical absence of uterus. Degenerative changes of the lumbar spine Ghassan Swift MD Objective Remarks GENERAL: Patient is lying in bed in NAD SKIN: Warm and dry. HEAD: Normocephalic. EYES: No scleral icterus. No injection or drainage. NECK: Supple, trachea midline. No JVD or lymphadenopathy. CARDIOVASCULAR: Regular rate and rhythm without murmurs, gallops, or rubs. RESPIRATORY: Breath sounds equal bilaterally. No accessory muscle use. GASTROINTESTINAL: Abdomen soft, non-tender, nondistended. MUSCULOSKELETAL: No cyanosis, or edema. BACK: Nontender without obvious deformity. No CVA tenderness. 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 8)Elevated CK Plan Neuro: Awake and alert Neuro- Dr. Carter is following re myopathy Pulm: Oxygen PRN keep sat >92% Bronchodilators- DuoNeb Q6 PRN CV: Monitor HR and BP keep MAP>65mmHg On Toprol XL 100mg daily, check echo to eval LV function : Monitor renal function, I/O's, avoid nephrotoxins On NS@100ml/hr, Renal- Dr. Daley Renal function improving, UO 1600ml in 24 hrs GI: On PO diet, on Protonix 20mg daily Monitor LFT, s/p CT guided liver biopsy with small subscapular hematoma ID: Monitor for signs of infections ( Fever, WBC) Heme: Monitor CBC, coags Endo: Increase SSI to medium scale for glycemic control, Levemir 8u Q12 GI prophylaxis- On Protonix 20mg daily DVT prophylaxis- on Heparin SQ Level 3 Temi Mena MD Sep 12, 2016 08:12
[2016-09-12 08:13] LABS: CKMB 16.4 NG/ML (0.5-3.6)
[2016-09-12] MEDS: POTASSIUM CHLORIDE 20 MEQ CONTROLLED RELEASE TAB PO SCH (08:56)
[2016-09-12] MEDS: METOPROLOL SUCCINATE 50 MG EXTENDED RELEASE TAB PO SCH (08:57)
[2016-09-12] MEDS: NIFEdipine 60 MG SUSTAINED RELEASE TAB PO SCH (08:57)
[2016-09-12] MEDS: INSULIN DETEMIR 100 UNITS/ML VIAL SQ SCH ×2 (08:57→19:59)
[2016-09-12] MEDS: PANTOPRAZOLE SOD 20 MG DELAYED RELEASE TAB PO SCH (08:57)
[2016-09-12] MEDS: ACETAMINOPHEN/HYDROcodone 325 MG/10 MG TAB PO PRN ×3 (08:57→20:12)
[2016-09-12] MEDS: SODIUM CHLORIDE 0.9% FLUSH 5 ML FLUSH FLUSH SCH ×2 (08:58→19:55)
[2016-09-12] MEDS ORDERED: RESP: ALBUTEROL 2.5 MG/IPRATROPIUM 0.5 MG NEB (PRN) NEB (09:00)
--- NOTE | 2016-09-12 09:27 | HHI.NPPN ---
Subjective Complaints: Abdominal Pain, Obesity Renal Failure: Acute Interval History Underwent liver biopsy. Hemoglobin is stable. Renal function has improved. CPK is better. Review of Systems General Constitutional: Fatigue Musculoskeletal MS: Pain/Stiffness MS Remarks back pain, thigh pain Objective Data Data 09/11/16 09/12/16 19:00 07:00 Intake Total 1620 ml Output Total 250 ml 1400 ml Balance -250 ml 220 ml Intake Oral 720 ml IV Total 900 ml Output Urine Total 250 ml 1400 ml Vital Signs Date Time Temp Pulse Resp B/P Pulse Ox O2 Delivery O2 Flow Rate FiO2 09/12/16 06:00 54 09/12/16 04:00 98.6 56 14 116/54 95 09/12/16 04:00 56 09/12/16 02:00 54 09/12/16 00:00 98.5 53 25 115/82 95 09/12/16 00:00 53 09/11/16 22:00 55 09/11/16 20:00 98.4 54 25 155/74 97 09/11/16 20:00 54 09/11/16 18:48 51 09/11/16 18:47 97.7 51 20 162/72 98 09/11/16 18:00 49 20 147/65 97 09/11/16 17:30 52 18 171/74 97 09/11/16 17:00 52 20 193/88 94 09/11/16 16:45 56 20 191/96 95 09/11/16 16:30 55 20 176/88 98 09/11/16 16:15 52 20 171/82 95 09/11/16 16:05 97.8 54 20 178/84 90 09/11/16 12:27 97.3 50 18 184/77 96 -: 09/12/16 0534 09/12/16 0534 Physical Exam General Appearance: Well Developed, Well Nourished, No Acute Distress, Comfortable Eyes Eye Exam: Pupils Equal Throat Throat Exam: Oral Mucosa Harrell & Moist Pulmonary Resp Exam: Clear Bilaterally, Breath Sounds Equal, No Distress Cardiology CV Exam: Regular, Normal Sinus Rhythm, Good Perfusion Gastrointestinal/Abdomen GI Exam: Soft, Non-Tender, Bowel Sounds Present Musculoskeletal MS Exam: Joints Intact, Good Strength Integumentary Skin Exam: Clear, Warm, Dry, Intact Extremeties Extremities Exam: No Edema, Pedal Pulses Palpable Neurologic Neuro Exam: Alert, Awake, Oriented, Speech Clear Assessment/Plan Discussed Condition With: Patient, Spouse, Son Assessment Summary: MONIK/Acute Renal Failure, Proteinuria, Hypertension, Diabetes Mellitus Problem List: (1) Acute renal failure Plan: MONIK likely due to rhabdomyolysis. Unlikely to be Cryoglobulinemic GN as complement levels are normal. Continue IVF. Avoid nephrotoxic agents. Monitor CPK. Monitor urine output and renal function. Avoid Statins in the future. Neurology is considering inflammatory myopathy. (2) Elevated LFTs Plan: s/p liver biopsy. She has tested positive for Hepatitis C. Remote history of IV drug abuse. (3) DMII (diabetes mellitus, type 2) Plan: Blood sugars in 200s continue insulin, and avoid oral hypoglycemics, goal 140-180 mg/dL (4) HTN (hypertension) Plan: monitor blood pressure, avoid ASH as she has had an allergy (? angioedema ) in past and also due to MONIK continue home medications, titrate as needed Problem Qualifiers (1) Acute renal failure: Qualified Code: N17.9 - Acute renal failure, unspecified acute renal failure type Pete Daley MD Sep 12, 2016 09:27
--- NOTE | 2016-09-12 11:54 | HHI.GIFU ---
GI Follow-up Note Consult Follow-up Subjective: Patient laying in bed comfortably, feeling better. S/p liver biopsy ystrday, transferred to unit for close observation , hb stable, no indication of bleeding at this point. Hep c ab positive -awaiting viral load. Objective: PHYSICAL EXAMINATION: Vitals signs stable No fever Vital Signs Date Time Temp Pulse Resp B/P Pulse Ox O2 Delivery O2 Flow Rate FiO2 09/12/16 09:57 18 09/12/16 06:00 54 09/12/16 04:00 98.6 56 14 116/54 95 09/12/16 04:00 56 HEENT: Pupils round and reactive to light; normocephalic; atraumatic; no jaundice. Throat is clear, vitiligo NECK: Neck is supple, no JVD, no lymphadenopathy. CHEST: Chest is clear to auscultation and percussion. CARDIAC: Regular rate and rhythm with no murmur gallop or rubs. ABDOMEN: Soft, nondistended, nontender; no hepatosplenomegaly; bowel sounds are present in all four quadrants. EXTREMITIES: No clubbing, cyanosis, or edema. SKIN: Normal; no rash; no jaundice. [employer]: No focal deficits; alert and oriented times three. Available Data (labs, X- Rays, Procedues) : Laboratory Tests Test 09/10/16 09/10/16 09/11/16 09/11/16 21:14 22:30 07:06 17:32 Prothrombin Time 11.3 SEC Prothromb Time International 1.0 RATIO Ratio Sodium Level 134 MEQ/L 136 MEQ/L Potassium Level 3.6 MEQ/L 3.4 MEQ/L Chloride Level 98 MEQ/L 101 MEQ/L Carbon Dioxide Level 27.7 MEQ/L 28.2 MEQ/L Anion Gap 8 MEQ/L 7 MEQ/L Blood Urea Nitrogen 39 MG/DL 38 MG/DL Creatinine 2.67 MG/DL 2.42 MG/DL Estimat Glomerular Filtration 22 ML/MIN 24 ML/MIN Rate Random Glucose 304 MG/DL 253 MG/DL Calcium Level 8.2 MG/DL 8.4 MG/DL Total Bilirubin 1.3 MG/DL 1.3 MG/DL Aspartate Amino Transf 881 U/L 868 U/L (AST/SGOT) Alanine Aminotransferase 377 U/L 391 U/L (ALT/SGPT) Alkaline Phosphatase 467 U/L 431 U/L Ammonia 40 MCMOL/L Total Protein 8.7 GM/DL 8.8 GM/DL Albumin 2.5 GM/DL 2.5 GM/DL Urine Random Creatinine 30 MG/DL Urine Microalbumin/Creatinine 269 MG/G CRE Ratio Phosphorus Level 2.9 MG/DL Direct Bilirubin 0.7 MG/DL Indirect Bilirubin 0.6 MG/DL Total Creatine Kinase GREATER THAN 04960 U/L Creatine Kinase MB 32.6 NG/ML Creatine Kinase MB % 0.0 % Hemoglobin 12.5 GM/DL Hematocrit 36.2 % Random Cortisol 10.6 MCG/DL Test 09/11/16 09/12/16 18:40 05:34 Nasal Screen MRSA (PCR) NEGATIVE White Blood Count 8.7 TH/MM3 Red Blood Count 4.07 MIL/MM3 Hemoglobin 12.1 GM/DL Hematocrit 35.9 % Mean Corpuscular Volume 88.4 FL Mean Corpuscular Hemoglobin 29.7 PG Mean Corpuscular Hemoglobin 33.6 % Concent Red Cell Distribution Width 17.0 % Platelet Count 216 TH/MM3 Mean Platelet Volume 11.7 FL Neutrophils (%) (Auto) 62.6 % Lymphocytes (%) (Auto) 23.8 % Monocytes (%) (Auto) 10.7 % Eosinophils (%) (Auto) 1.8 % Basophils (%) (Auto) 1.1 % Neutrophils # (Auto) 5.5 TH/MM3 Lymphocytes # (Auto) 2.1 TH/MM3 Monocytes # (Auto) 0.9 TH/MM3 Eosinophils # (Auto) 0.2 TH/MM3 Basophils # (Auto) 0.1 TH/MM3 CBC Comment DIFF FINAL Differential Comment Sodium Level 137 MEQ/L Potassium Level 3.7 MEQ/L Chloride Level 102 MEQ/L Carbon Dioxide Level 25.5 MEQ/L Anion Gap 10 MEQ/L Blood Urea Nitrogen 30 MG/DL Creatinine 2.01 MG/DL Estimat Glomerular Filtration 30 ML/MIN Rate Random Glucose 239 MG/DL Calcium Level 8.6 MG/DL Total Bilirubin 1.5 MG/DL Aspartate Amino Transf 716 U/L (AST/SGOT) Alanine Aminotransferase 368 U/L (ALT/SGPT) Alkaline Phosphatase 432 U/L Total Creatine Kinase 9124 U/L Creatine Kinase MB 16.4 NG/ML Creatine Kinase MB % 0.2 % Total Protein 8.9 GM/DL Albumin 2.5 GM/DL ASSESSMENT/PLAN: elevated lfts -unclear etiology suspect drug effect vs autoimmune process-liver biopsy, labs pending hepatitis c ab positive-viral lod pending , doubt cause of current elevation in view of rhabdomyolysis, elevated lfts suspect Lipitor as a cause Recommendations fu labs fu liver biopsy hep c op treatment if viral load positive start Actigall and Mucomyst monitor lfts closely It was a pleasure seeing Fabian Angeles Thank you for this consult. Entered by: Shilpi Delgadillo MD Sep 12, 2016 11:54
[2016-09-12 15:53] LABS: MYELOPEROXIDASE LESS THAN 1.0 AI (<1.0); PROTEINASE-3 LESS THAN 1.0 AI (<1.0)
--- NOTE | 2016-09-12 16:53 | HHI.CCPN ---
Subjective Remarks/Hospital Course 09/12 No acute events overnight. Patient is lying in bed in NAD. Afebrile. H/H stable. s/p CT guided liver biopsy yesterday. Objective Vital Signs Date Time Temp Pulse Resp B/P Pulse Ox O2 Delivery O2 Flow Rate FiO2 09/12/16 15:29 18 09/12/16 10:00 67 09/12/16 04:00 98.6 116/54 95 09/09/16 17:16 Room Air Intake and Output 09/11/16 09/11/16 09/12/16 08:00 16:00 00:00 Intake Total 360 ml 640 ml Output Total 950 ml Balance 360 ml -310 ml Result Diagram: 09/12/16 0534 09/12/16 0534 Imaging Last Impressions Liver Biopsy CT 09/11/16 0000 Signed Impressions: Service Date/Time: Sunday, September 11, 2016 15:19 - CONCLUSION: Liver biopsy with small subcapsular hematoma. This will be followed carefully. Chaz Burgess MD FACRADDENDUM: Discussed with Dr. Mills. Patient will be placed in the intensive care for close observation. Repeat H&H is pending. Chaz Burgess MD FACR Lumbar Spine X-Ray 09/10/16 0600 Signed Impressions: Service Date/Time: August 08:15 - CONCLUSION: Degenerative changes. No acute abnormality.. Farhana Guerrero MD Abdomen/Pelvis CT 09/09/16 0000 Signed Impressions: Service Date/Time: Friday, September 09, 2016 12:27 - CONCLUSION: Normal liver, gallbladder and biliary tree. Multiple bilateral renal calyceal punctate stone is nonobstructive. Surgical absence of uterus. Degenerative changes of the lumbar spine Ghassan Swift MD Objective Remarks GENERAL: Patient is lying in bed in NAD SKIN: Warm and dry. HEAD: Normocephalic. EYES: No scleral icterus. No injection or drainage. NECK: Supple, trachea midline. No JVD or lymphadenopathy. CARDIOVASCULAR: Regular rate and rhythm without murmurs, gallops, or rubs. RESPIRATORY: Breath sounds equal bilaterally. No accessory muscle use. GASTROINTESTINAL: Abdomen soft, non-tender, nondistended. MUSCULOSKELETAL: No cyanosis, or edema. BACK: Nontender without obvious deformity. No CVA tenderness. 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 8)Elevated CK Plan Neuro: Awake and alert Neuro- Dr. Carter is following re myopathy Pulm: Oxygen PRN keep sat >92% Bronchodilators- DuoNeb Q6 PRN CV: Monitor HR and BP keep MAP>65mmHg On Toprol XL 100mg daily, check echo to eval LV function : Monitor renal function, I/O's, avoid nephrotoxins On NS@100ml/hr, Renal- Dr. Daley Renal function improving, UO 1600ml in 24 hrs GI: On PO diet, on Protonix 20mg daily Monitor LFT, s/p CT guided liver biopsy with small subscapular hematoma ID: Monitor for signs of infections ( Fever, WBC) Heme: Monitor CBC, coags Endo: Increase SSI to medium scale for glycemic control, Levemir 8u Q12 GI prophylaxis- On Protonix 20mg daily DVT prophylaxis- on Heparin SQ Level 3 Temi Mena MD Sep 12, 2016 16:53
[2016-09-12] MEDS ORDERED: DEXTROSE 50% IN WATER 50 ML VIAL(D50) IV PUSH PRN (17:00)
[2016-09-12] MEDS ORDERED: GLUCAGON 1 MG/ML VIAL OTHER PRN (17:00)
--- NOTE | 2016-09-12 17:49 | EC ---
Study Study Date:09/12/2016 STUDY CONCLUSIONS SUMMARY - Left ventricle: The cavity size was normal. Wall thickness was increased in a pattern of mild LVH. Systolic function was normal. The estimated ejection fraction was 65%. Wall motion was normal; there were no regional wall motion abnormalities. - Mitral valve: Transvalvular velocity was minimally increased. The findings are consistent with trivial stenosis. - Pulmonary arteries: Systolic pressure was mildly to moderately increased. PA peak pressure: 51mm Hg (S). If LV function is below 40, please consider prescribing an ACEI or ARB or document rationale for non-use. PROCEDURE DATA STUDY STATUS: Elective. Procedure: Transthoracic echocardiography. Image quality was good. Scanning was performed from the parasternal, apical, and subcostal acoustic windows. Study completion: The patient tolerated the procedure well. Transthoracic echocardiography. M-mode, complete 2D, complete spectral Doppler, and color Doppler. Patient status: Inpatient. CARDIAC ANATOMY LEFT VENTRICLE: The cavity size was normal. Wall thickness was increased in a pattern of mild LVH. Systolic function was normal. The estimated ejection fraction was 65%. Wall motion was normal; there were no regional wall motion abnormalities. AORTIC VALVE: Trileaflet; mildly thickened leaflets. Doppler: Transvalvular velocity was within the normal range. There was no stenosis. No regurgitation. Valve area: 1.07cm^2(VTI). Valve area: 1.1cm^2 (Vmax). Mean gradient: 10mm Hg (S). Peak gradient: 19mm Hg (S). AORTA: Aortic root: The aortic root was normal in size. MITRAL VALVE: Structurally normal valve. Doppler: Transvalvular velocity was minimally increased. The findings are consistent with trivial stenosis. Trace regurgitation. LEFT ATRIUM: The atrium was normal in size. RIGHT VENTRICLE: The cavity size was normal. Wall thickness was normal. PULMONIC VALVE: Doppler: Transvalvular velocity was within the normal range. There was no evidence for stenosis. No regurgitation. TRICUSPID VALVE: Structurally normal valve. Doppler: Transvalvular velocity was within the normal range. Trace regurgitation. PULMONARY ARTERY: The main pulmonary artery was normal-sized. Systolic pressure was mildly to moderately increased. RIGHT ATRIUM: The atrium was normal in size. PERICARDIUM: There was no pericardial effusion. SYSTEMIC VEINS: Inferior vena cava: The vessel was normal in size. BASIC MEASUREMENTS ADULT Normal Left ventricle LV internal dimension, ED, chordal level, *42.7 mm 43-52 PLAX LV internal dimension, ES, chordal level, 28.7 mm 23-38 PLAX Fractional shortening, chordal level, PLAX 33 % >29 LV posterior wall thickness, ED 10.9 mm IVS/LVPW ratio, ED 1.08 <1.3 Ventricular septum Septal thickness, ED 11.8 mm Aortic valve Leaflet separation 20 mm 15-26 Right ventricle RV internal dimension, ED, PLAX 25.2 mm 19-38 BASIC MEASUREMENTS ADULT Normal Aortic valve Leaflet separation 20 mm 15-26 Aorta Root diameter, ED 28 mm 20-37 Left atrium Anterior-posterior dimension, ES 33 mm 19-40 LA/aortic root ratio 1.18 DOPPLER MEASUREMENTS ADULT Normal Main pulmonary artery Pressure, S *51 mm Hg =30 Aortic valve Peak velocity, S 218 cm/s Mean velocity, S 150 cm/s VTI, S 46 cm Mean gradient, S 10 mm Hg Peak gradient, S 19 mm Hg Valve area, VTI 1.07 cm^2 Valve area, Vmax 1.1 cm^2 Tricuspid valve Regurgitant peak velocity 321 cm/s Peak RV-RA gradient, S 41 mm Hg Maximal regurgitant velocity 321 cm/s Systemic veins Estimated CVP 10 mm Hg Right ventricle RV pressure, S *51 mm Hg <30 LEGEND: Mean values are shown as u=mean value. Asterisk (*) mcfarland values outside specified normal range. Prepared and signed by Ernie Whitley [id number]
[2016-09-12] MEDS: INSULIN NovoLIN REGULAR SUPPLEMENTAL SCALE SQ SCH ×2 (18:00→23:33)
[2016-09-12] MEDS: ACETYLCYSTEINE 20% ORAL SOLN 4 ML VIAL PO SCH (19:59)
[2016-09-12] MEDS: URSODIOL 300 MG CAP PO SCH (19:59)
[2016-09-12] MEDS: ALPRAZolam 0.5 MG TAB PO PRN (20:08)
--- NOTE | 2016-09-12 22:05 | PD.CONS ---
[facility] Service Critical Care Medicine Consult Requested By Primary Care Physician Trish Emery MD History of Present Illness Consultation provided 09/11/2016 at 21:35 66-year-old female with hypertension, anxiety, hyperlipidemia, who presents with a 1-2 week history of progressive malaise, as well as nausea, non-bloody, non-coffee ground emesis. She underwent liver biopsy that was complicated by small subcapsular hematoma. [facility] was consulted to assist with medical management in the ICU Review of Systems Constitutional: COMPLAINS OF: Fatigue, DENIES: Diaphoretic episodes, Fever, Weight gain, Weight loss, Chills, Dizziness, Change in appetite, Night Sweats Endocrine: DENIES: Abnorml menstrual pattern, Heat/cold intolerance, Polydipsia , Polyuria, Polyphagia Eyes: DENIES: Blurred vision, Diplopia, Eye inflammation, Eye pain, Vision loss , Photosensitivity, Double Vision Ears, nose, mouth, throat: DENIES: Tinnitus, Hearing loss, Vertigo, Nasal discharge, Oral lesions, Throat pain, Hoarseness, Ear Pain, Running Nose, Epistaxis, Sinus Pain, Toothache, Odynophagia Respiratory: DENIES: Apneas, Cough, Snoring, Wheezing, Hemoptysis, Sputum production, Shortness of breath Cardiovascular: DENIES: Chest pain, Palpitations, Syncope, Dyspnea on Exertion , PND, Lower Extremity Edema, Orthopnea, Claudication Gastrointestinal: COMPLAINS OF: Abdominal pain, Nausea, Vomiting, DENIES: Black stools, Bloody stools, Constipation, Diarrhea, Difficulty Swallowing, Anorexia Genitourinary: DENIES: Abnormal vaginal bleeding, Dysmenorrhea, Dyspareunia, Sexual dysfunction, Urinary frequency, Urinary incontinence, Urgency, Hematuria , Dysuria, Nocturia, Vaginal discharge Musculoskeletal: DENIES: Joint pain, Muscle aches, Stiffness, Joint Swelling, Back pain, Neck pain Integumentary: DENIES: Abnormal pigmentation, Pruritus, Rash, Nail changes, Breast masses, Breast skin changes, Nipple discharge Hematologic/lymphatic: DENIES: Bruising, Lymphadenopathy Immunologic/allergic: DENIES: Eczema, Urticaria Neurologic: DENIES: Abnormal gait, Headache, Localized weakness, Paresthesias, Seizures, Speech Problems, Tremor, Poor Balance Psychiatric: DENIES: Anxiety, Confusion, Mood changes, Depression, Hallucinations, Agitation, Suicidal Ideation, Homicidal Ideation, Delusions Past Family Social History Allergies: Coded Allergies: Flexeril (Verified Adverse Reaction, Mild, UPSET STOMACH, 09/09/16) Past Medical History Hypertension Anxiety Hyperlipidemia Diabetes. Insulin-dependent. Diagnosed in 1996 Chronic back pain GERD Vitiligo Umbilical hernia Coronary artery disease. Patient denies ever having cardiac catheterization History of esophageal stricture Past Surgical History Hysterectomy Carpal tunnel nerve release Reported Medications Omeprazole 20 Mg Tab 20 Mg PO DAILY Novolin R Inj (Insulin Human Regular) 1,000 Unit/10 Ml Vial 2-10 Units SQ DIRECTED Max dose at bedtime:( )units; sugars less than 150,(0) units; sugars 150-199,(2)unit; sugars 200-249,(4)units; sugars 250-299,(6) units; sugars 300-349,(8)units; sugars equal to or greater than 350,(10)units Losartan-Hydrochlorothiazide 100-25 Mg Tab 1 Tab PO DAILY Metoprolol Succinate ER 24 HR (Metoprolol Succinate) 100 Mg Tab 100 Mg PO DAILY Atorvastatin (Atorvastatin Calcium) 80 Mg Tab 80 Mg PO HS Novolin N Inj (Insulin Human NPH) 1,000 Unit/10 Ml Vial 10 Units SQ Alprazolam 0.5 Mg Tab 0.5 Mg PO Q4H PRN Hydrocodone-Acetaminophen 10-325 mg Tab 1 Tab PO Q4H PRN Active Ordered Medications Current Medications Medications (Trade) Dose Ordered Sig/Chantel Route PRN Reason Start Time Stop Time Status Last Admin Dose Admin IV Flush (NS Flush) 2 ml UNSCH PRN FLUSH FLUSH AFTER USING IV ACCESS 09/09/16 13:00 IV Flush (NS Flush) 2 ml BID FLUSH 09/09/16 21:00 09/12/16 08:58 Heparin Sodium (Porcine) (Heparin Inj) 5,000 units Q12H SQ 09/09/16 14:00 09/12/16 12:42 Naloxone HCl (Narcan Inj) 0.4 mg UNSCH PRN IV SEE LABEL COMMENTS 09/09/16 13:00 Clonidine 0.1 mg 0.1 mg Q6H PRN PO SBP> OR = 180, DBP> OR = 100 09/09/16 13:00 09/11/16 17:29 Sodium Chloride (NS 1000 ml Inj) 1,000 ml @ 100 mls/hr Q10H IV 09/09/16 17:00 09/12/16 12:42 Acetaminophen/ Hydrocodone Bitart ([place] 10-325 Mg) 1 tab Q6H PRN PO pain >5 09/09/16 21:30 09/12/16 20:12 Alprazolam (Xanax) 0.5 mg Q4H PRN PO ANXIETY 09/09/16 23:00 09/12/16 20:08 Pantoprazole Sodium (Protonix) 20 mg DAILY PO 09/10/16 09:00 09/12/16 08:57 Metoprolol Succinate (Toprol Xl) 100 mg DAILY PO 09/10/16 09:00 09/11/16 08:28 Potassium Chloride (KCl) 20 meq DAILY PO 09/11/16 10:15 09/12/16 08:56 Insulin Detemir (Levemir Inj) 8 units Q12HR SQ 09/11/16 21:00 09/12/16 19:59 Nifedipine (Procardia Xl) 60 mg DAILY PO 09/12/16 09:00 09/12/16 08:57 Miscellaneous Information Patient in critical care unit? Ass... [id number] 09/11/16 19:00 Chlorhexidine Gluconate (Chlorhexidine 2% Cloth) 3 pack DAILY@04 TOP 09/12/16 04:00 09/16/16 04:01 09/12/16 04:00 Chlorhexidine Gluconate (Chlorhexidine 2% Cloth) 3 pack UNSCH PRN [facility] 09/11/16 19:00 09/16/16 18:49 Ursodiol (Actigall) 300 mg Q12HR PO 09/12/16 21:00 09/12/16 19:59 Acetylcysteine (Mucomyst 20% Liq) 3 ml BID PO 09/12/16 21:00 Dextrose (D50w (Vial) Inj) 25 ml UNSCH PRN IV PUSH HYPOGLYCEMIA-SEE COMMENTS 09/12/16 17:00 Glucagon (Glucagon Inj) 1 mg UNSCH PRN OTHER HYPOGLYCEMIA-SEE COMMENTS 09/12/16 17:00 Insulin Human Regular (NovoLIN R SUPPLEMENTAL SCALE) 1 Q6HR SQ 09/12/16 18:00 Family History noncontributory Social History Negative Physical Exam Vital Signs Vital Signs Date Time Temp Pulse Resp B/P Pulse Ox O2 Delivery O2 Flow Rate FiO2 09/12/16 18:00 67 09/12/16 16:00 98.6 56 18 160/90 95 09/12/16 16:00 57 09/12/16 15:29 18 09/12/16 14:00 67 09/12/16 12:00 57 09/12/16 10:00 67 09/12/16 08:00 57 09/12/16 06:00 54 09/12/16 04:00 98.6 56 14 116/54 95 09/12/16 04:00 56 09/12/16 02:00 54 09/12/16 00:00 98.5 53 25 115/82 95 09/12/16 00:00 53 Physical Exam GENERAL: Patient is lying in bed in NAD SKIN: Warm and dry. HEAD: Normocephalic. EYES: No scleral icterus. No injection or drainage. NECK: Supple, trachea midline. No JVD or lymphadenopathy. CARDIOVASCULAR: Regular rate and rhythm without murmurs, gallops, or rubs. RESPIRATORY: Breath sounds equal bilaterally. No accessory muscle use. GASTROINTESTINAL: Abdomen soft, non-tender, nondistended. MUSCULOSKELETAL: No cyanosis, or edema. BACK: Nontender without obvious deformity. No CVA tenderness. Neuro: Awake and alert Laboratory Laboratory Tests Test 09/12/16 05:34 White Blood Count 8.7 Red Blood Count 4.07 Hemoglobin 12.1 Hematocrit 35.9 Mean Corpuscular Volume 88.4 Mean Corpuscular Hemoglobin 29.7 Mean Corpuscular Hemoglobin 33.6 Concent Red Cell Distribution Width 17.0 Platelet Count 216 Mean Platelet Volume 11.7 Neutrophils (%) (Auto) 62.6 Lymphocytes (%) (Auto) 23.8 Monocytes (%) (Auto) 10.7 Eosinophils (%) (Auto) 1.8 Basophils (%) (Auto) 1.1 Neutrophils # (Auto) 5.5 Lymphocytes # (Auto) 2.1 Monocytes # (Auto) 0.9 Eosinophils # (Auto) 0.2 Basophils # (Auto) 0.1 CBC Comment DIFF FINAL Differential Comment Sodium Level 137 Potassium Level 3.7 Chloride Level 102 Carbon Dioxide Level 25.5 Anion Gap 10 Blood Urea Nitrogen 30 Creatinine 2.01 Estimat Glomerular Filtration 30 Rate Random Glucose 239 Calcium Level 8.6 Total Bilirubin 1.5 Aspartate Amino Transf 716 (AST/SGOT) Alanine Aminotransferase 368 (ALT/SGPT) Alkaline Phosphatase 432 Total Creatine Kinase 9124 Creatine Kinase MB 16.4 Creatine Kinase MB % 0.2 Total Protein 8.9 Albumin 2.5 Result Diagram: 09/12/1653309/12/16533 Assessment and Plan Assessment and Plan Assesment and plan 1)Resp Insuff 2)HTN 3) MONIK 4)Elevated LFT sp CT guided liver biopsy 5)Hep C ab reactive 6)DM 7)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 8)Elevated CK Plan Neuro: Awake and alert Neuro- Dr. Carter is following re myopathy Pulm: Oxygen PRN keep sat >92% Bronchodilators- DuoNeb Q6 PRN CV: Monitor HR and BP keep MAP>65mmHg On Toprol XL 100mg daily, check echo to eval LV function : Monitor renal function, I/O's, avoid nephrotoxins On NS@100ml/hr, Renal- Dr. Daley Renal function improving, UO 1600ml in 24 hrs GI: On PO diet, on Protonix 20mg daily Monitor LFT, s/p CT guided liver biopsy with small subscapular hematoma ID: Monitor for signs of infections ( Fever, WBC) Heme: Monitor CBC, coags Endo: Increase SSI to medium scale for glycemic control, Levemir 8u Q12 GI prophylaxis- On Protonix 20mg daily DVT prophylaxis- on Heparin SQ Level 3 Consultation provided 09/11/2016 at 21:35 Kumar Hazel MD Sep 12, 2016 22:05
[2016-09-13] VITALS (10 sets, daily range): BP systolic 136–190; BP diastolic 63–84; PULSE 54–69; RESP 18–31; TEMP 98–98.4; O2SAT 95–98
[2016-09-13] MEDS: SODIUM CHLOR 0.9% 1000 ML INJ 1,000 ML IV SCH ×2 (01:00→09:24)
[2016-09-13] MEDS: HEPARIN SODIUM - SQ 10,000 UNITS/ML VIAL SQ SCH ×2 (02:00→14:00)
[2016-09-13] MEDS: CHLORHEXIDINE GLUCONATE 2 % 1 PACK (2 CLOTHS)(taper/protocol) TOP SCH (04:00)
[2016-09-13] MEDS: INSULIN NovoLIN REGULAR SUPPLEMENTAL SCALE SQ SCH ×4 (05:45→22:58)
[2016-09-13 07:11] LABS: AUTOMATED NEUTROPHIL # 3.8 TH/MM3 (1.8-7.7); BASOPHIL % 0.2 % (0.0-2.0); EOSINOPHIL # 0.2 TH/MM3 (0-0.4); EOSINOPHIL % 2.6 % (0.0-4.0); HEMATOCRIT 31.8 % (35.0-46.0); HEMO FLAGS DIFF FINAL; LYMPHOCYTE # 1.8 TH/MM3 (1.0-4.8); MEAN CELL VOLUME 87.7 FL (80.0-100.0); MEAN CORPUSCULAR HGB CONC 34.2 % (32.0-36.0); NEUT % 56.2 % (16.0-70.0); PLATELET COUNT 175 TH/MM3 (150-450); RED BLOOD COUNT 3.63 MIL/MM3 (4.00-5.30); RED CELL DISTRIBUTION WIDTH 16.6 % (11.6-17.2); WHITE BLOOD COUNT 6.8 TH/MM3 (4.0-11.0)
[2016-09-13 07:22] LABS: PROTHROMBIN TIME - PATIENT 11.2 SEC (9.8-11.6)
[2016-09-13 07:28] LABS: ALT (GPT) 294 U/L (10-53); ANION GAP 9 MEQ/L (5-15); AST (GOT) 481 U/L (15-37); BICARBONATE 28.1 MEQ/L (21.0-32.0); BLOOD UREA NITROGEN 28 MG/DL (7-18); CHLORIDE 103 MEQ/L (98-107); GLOMERULAR FILTRATION RATE 37 ML/MIN (>89); SODIUM (NA) 140 MEQ/L (136-145)
[2016-09-13 07:41] LABS: ALKALINE PHOSPHATASE 381 U/L (45-117); CREATINE KINASE 4675 U/L (26-192); TOTAL BILIRUBIN ADULT 1.2 MG/DL (0.2-1.0)
[2016-09-13 08:00] LABS: CKMB 8.8 NG/ML (0.5-3.6)
[2016-09-13] MEDS: SODIUM CHLORIDE 0.9% FLUSH 5 ML FLUSH FLUSH SCH ×2 (09:00→19:50)
[2016-09-13] MEDS: INSULIN DETEMIR 100 UNITS/ML VIAL SQ SCH ×2 (09:00→19:49)
[2016-09-13] MEDS: ACETYLCYSTEINE 20% ORAL SOLN 4 ML VIAL PO SCH ×2 (09:00→19:50)
[2016-09-13] MEDS: PANTOPRAZOLE SOD 20 MG DELAYED RELEASE TAB PO SCH (09:23)
[2016-09-13] MEDS: ACETAMINOPHEN/HYDROcodone 325 MG/10 MG TAB PO PRN ×2 (09:23→19:49)
[2016-09-13] MEDS: POTASSIUM CHLORIDE 20 MEQ CONTROLLED RELEASE TAB PO SCH (09:23)
[2016-09-13] MEDS: URSODIOL 300 MG CAP PO SCH ×2 (09:24→19:49)
[2016-09-13] MEDS: NIFEdipine 60 MG SUSTAINED RELEASE TAB PO SCH (09:24)
[2016-09-13] MEDS: METOPROLOL SUCCINATE 50 MG EXTENDED RELEASE TAB PO SCH (09:24)
--- NOTE | 2016-09-13 10:17 | HHI.NPPN ---
Subjective Complaints: Abdominal Pain, Obesity Renal Failure: Acute Interval History renal function continues to improve. Review of Systems Musculoskeletal MS: Pain/Stiffness MS Remarks back pain, thigh pain Objective Data Data 09/12/16 09/13/16 19:00 07:00 Intake Total 1740 ml Output Total 1400 ml Balance 340 ml Intake Oral 580 ml IV Total 1160 ml Output Urine Total 1400 ml # Bowel Movements 0 Vital Signs Date Time Temp Pulse Resp B/P Pulse Ox O2 Delivery O2 Flow Rate FiO2 09/13/16 06:00 57 09/13/16 04:00 98.2 54 22 136/63 95 09/13/16 04:00 54 09/13/16 02:00 58 09/13/16 00:00 61 09/13/16 00:00 98.4 61 31 157/65 96 09/12/16 22:00 65 09/12/16 20:00 98.1 69 27 175/83 100 09/12/16 20:00 69 09/12/16 18:00 67 09/12/16 16:00 98.6 56 18 160/90 95 09/12/16 16:00 57 09/12/16 15:29 18 09/12/16 14:00 67 09/12/16 12:00 57 -: 09/13/16 0601 09/13/16 0511 Physical Exam General Appearance: Well Developed, Well Nourished, No Acute Distress, Comfortable Eyes Eye Exam: Pupils Equal Throat Throat Exam: Oral Mucosa [place] & Moist Pulmonary Resp Exam: Clear Bilaterally, Breath Sounds Equal, No Distress Cardiology CV Exam: Regular, Normal Sinus Rhythm, Good Perfusion Gastrointestinal/Abdomen GI Exam: Soft, Non-Tender, Bowel Sounds Present Musculoskeletal MS Exam: Joints Intact, Good Strength Integumentary Skin Exam: Clear, Warm, Dry, Intact Extremeties Extremities Exam: No Edema, Pedal Pulses Palpable Neurologic Neuro Exam: Alert, Awake, Oriented, Speech Clear Assessment/Plan Discussed Condition With: Patient, Spouse, Son Assessment Summary: MONIK/Acute Renal Failure, Proteinuria, Hypertension, Diabetes Mellitus Problem List: (1) Acute renal failure Plan: MONIK likely due to rhabdomyolysis. Unlikely to be Cryoglobulinemic GN as complement levels are normal. Taper off fluids as CPK is improving. Avoid nephrotoxic agents. Monitor CPK. Monitor urine output and renal function. Avoid Statins in the future. Neurology is considering inflammatory myopathy. (2) Hypokalemia Plan: Replace. Add potassium to IVF. (3) Elevated LFTs Plan: s/p liver biopsy. She has tested positive for Hepatitis C. Remote history of IV drug abuse. (4) DMII (diabetes mellitus, type 2) Plan: Blood sugars in 200s continue insulin, and avoid oral hypoglycemics, goal 140-180 mg/dL (5) HTN (hypertension) Plan: monitor blood pressure, avoid ASH as she has had an allergy (? angioedema ) in past and also due to MONIK continue home medications, titrate as needed Plan Renal function continues to improve. LFTs are improving as well. CPK has trended down. At this time, I will see her as needed. Home Ok in 1-2 days. Thanks. Problem Qualifiers (1) Acute renal failure: Qualified Code: N17.9 - Acute renal failure, unspecified acute renal failure type Pete Daley MD Sep 13, 2016 10:17
[2016-09-13] MEDS: ALPRAZolam 0.5 MG TAB PO PRN ×2 (10:34→19:49)
[2016-09-13] MEDS: POTASSIUM CHLORIDE INJ 30 MEQ in SODIUM CHLOR 0.45% 1000 ML INJ 1,000 ML IV SCH ×2 (11:00→22:59)
[2016-09-13] MEDS: cloNIDine HCL 0.1 MG TAB PO PRN (11:57)
[2016-09-13 13:54] LABS: HCV RNA PCR LOGIU/ML 6.45 (())
--- NOTE | 2016-09-13 14:03 | HHI.CCPN ---
Subjective Remarks/Hospital Course 09/12 No acute events overnight. Patient is lying in bed in NAD. Afebrile. H/H stable. s/p CT guided liver biopsy yesterday. SUBJECTIVE: 09/13: Objective Vital Signs Date Time Temp Pulse Resp B/P Pulse Ox O2 Delivery O2 Flow Rate FiO2 09/13/16 10:18 18 09/13/16 06:00 57 09/13/16 04:00 98.2 136/63 95 09/09/16 17:16 Room Air Intake and Output 09/12/16 09/12/16 09/13/16 08:00 16:00 00:00 Intake Total 980 ml 980 ml Output Total 700 ml 800 ml Balance 280 ml 180 ml Result Diagram: 09/13/16 0601 09/13/16 0511 Imaging Last Impressions Liver Biopsy CT 09/11/16 0000 Signed Impressions: Service Date/Time: Sunday, September 11, 2016 15:19 - CONCLUSION: Liver biopsy with small subcapsular hematoma. This will be followed carefully. Chaz Burgess MD FACRADDENDUM: Discussed with Dr. Mills. Patient will be placed in the intensive care for close observation. Repeat H&H is pending. Chaz Burgess MD FACR Lumbar Spine X-Ray 09/10/16 0600 Signed Impressions: Service Date/Time: August 08:15 - CONCLUSION: Degenerative changes. No acute abnormality.. Farhana Guerrero MD Abdomen/Pelvis CT 09/09/16 0000 Signed Impressions: Service Date/Time: Friday, September 09, 2016 12:27 - CONCLUSION: Normal liver, gallbladder and biliary tree. Multiple bilateral renal calyceal punctate stone is nonobstructive. Surgical absence of uterus. Degenerative changes of the lumbar spine Ghassan wSift MD Objective Remarks GENERAL: 66 yo AAF lying in bed in NAD SKIN: Warm and dry. Vitiligo lips, extremities HEAD: Normocephalic. EYES: No scleral icterus. No injection or drainage. NECK: Supple, trachea midline. No JVD or lymphadenopathy. CARDIOVASCULAR: [place], RR. S1, S2. No S4. No murmurs, gallops, or rubs. RESPIRATORY: Breath sounds equal bilaterally. CTAB. No accessory muscle use. GASTROINTESTINAL: Abdomen soft, non-tender, nondistended. Hypo BS MUSCULOSKELETAL: Tr LE edema. BACK: Nontender without obvious deformity. No CVA tenderness. Neuro: Awake and alert A/P Assessment and Plan Neuro/Psych: Anxiety Xanax 0.5 mg every 4 hours as needed anxiety. [place] PRN pn amangement. Awake and alert Neuro- Dr. Carter is following re myopathy Might need muscle bx Pulm: Acute resp insuff Oxygen PRN keep sat >92%. Currently on RA Bronchodilators- DuoNeb Q6 PRN CV: HTN HLP Monitor HR and BP keep MAP>65mmHg On Toprol XL 100mg daily and nifedipine 60 daily Home on Metoprolol 100 mg daily and Losartan HCTZ 100/25 1 tab daily. echo EF 65%. NRWMA, JOSÉ ANTONIO 51 mmHg. /Renal: MONIK - rhabdo? Monitor renal function, I/O's, avoid nephrotoxins On 08/17 NS w/KCl @ 75ml/hr, Renal- Dr. Daley Renal function improving GI: Rhabdo Hep C ab+ - pending genotype and PCR viral load Elevated transaminases - rhabdo - atorvastatin vs inflam myositis On PO diet, on Protonix 20mg daily Monitor LFT, s/p CT guided liver biopsy with small subscapular hematoma Aldolase 62. CPR 1.00 ASH 123 ? sig SPEP - hypoalb - chronic dz CPK trending down Liver bx results pending. No bleed. ID: Monitor for signs of infections ( Fever, WBC) Heme: Anemia Monitor CBC, coags Endo: DM On NPH 10 U BID a home w/SSI 19 U SSI past 24 hours. Increase SSI to medium scale for glycemic control, Levemir 12u Q12 GI prophylaxis- On Protonix 20mg daily DVT prophylaxis- on Heparin SQ Level 3 Brock Carr MD Sep 13, 2016 14:03
--- NOTE | 2016-09-13 15:09 | HHI.GIFU ---
GI Follow-up Note Consult Follow-up Subjective: Patient laying in bed comfortably, feeling better. Liver enzymes improved .Awaiting liver biopsy Objective: PHYSICAL EXAMINATION: Vitals signs stable No fever Vital Signs Date Time Temp Pulse Resp B/P Pulse Ox O2 Delivery O2 Flow Rate FiO2 09/13/16 12:00 98.0 69 22 190/84 95 09/13/16 12:00 54 09/13/16 10:18 18 HEENT: Pupils round and reactive to light; normocephalic; atraumatic; no jaundice. Throat is clear. NECK: Neck is supple, no JVD, no lymphadenopathy. CHEST: Chest is clear to auscultation and percussion. CARDIAC: Regular rate and rhythm with no murmur gallop or rubs. ABDOMEN: Soft, nondistended, nontender; no hepatosplenomegaly; bowel sounds are present in all four quadrants. EXTREMITIES: No clubbing, cyanosis, or edema. SKIN: Normal; no rash; no jaundice. [employer]: No focal deficits; alert and oriented times three. Available Data (labs, X- Rays, Procedues) : Laboratory Tests Test 09/11/16 09/11/16 09/12/16 09/13/16 17:32 18:40 05:34 05:11 Hemoglobin 12.5 GM/DL 12.1 GM/DL Hematocrit 36.2 % 35.9 % Random Cortisol 10.6 MCG/DL Nasal Screen MRSA (PCR) NEGATIVE White Blood Count 8.7 TH/MM3 Red Blood Count 4.07 MIL/MM3 Mean Corpuscular Volume 88.4 FL Mean Corpuscular Hemoglobin 29.7 PG Mean Corpuscular Hemoglobin 33.6 % Concent Red Cell Distribution Width 17.0 % Platelet Count 216 TH/MM3 Mean Platelet Volume 11.7 FL Neutrophils (%) (Auto) 62.6 % Lymphocytes (%) (Auto) 23.8 % Monocytes (%) (Auto) 10.7 % Eosinophils (%) (Auto) 1.8 % Basophils (%) (Auto) 1.1 % Neutrophils # (Auto) 5.5 TH/MM3 Lymphocytes # (Auto) 2.1 TH/MM3 Monocytes # (Auto) 0.9 TH/MM3 Eosinophils # (Auto) 0.2 TH/MM3 Basophils # (Auto) 0.1 TH/MM3 CBC Comment DIFF FINAL Differential Comment Sodium Level 137 MEQ/L 140 MEQ/L Potassium Level 3.7 MEQ/L 3.0 MEQ/L Chloride Level 102 MEQ/L 103 MEQ/L Carbon Dioxide Level 25.5 MEQ/L 28.1 MEQ/L Anion Gap 10 MEQ/L 9 MEQ/L Blood Urea Nitrogen 30 MG/DL 28 MG/DL Creatinine 2.01 MG/DL 1.69 MG/DL Estimat Glomerular Filtration 30 ML/MIN 37 ML/MIN Rate Random Glucose 239 MG/DL 197 MG/DL Calcium Level 8.6 MG/DL 8.6 MG/DL Total Bilirubin 1.5 MG/DL 1.2 MG/DL Aspartate Amino Transf 716 U/L 481 U/L (AST/SGOT) Alanine Aminotransferase 368 U/L 294 U/L (ALT/SGPT) Alkaline Phosphatase 432 U/L 381 U/L Total Creatine Kinase 9124 U/L 4675 U/L Creatine Kinase MB 16.4 NG/ML 8.8 NG/ML Creatine Kinase MB % 0.2 % 0.2 % Total Protein 8.9 GM/DL 8.1 GM/DL Albumin 2.5 GM/DL 2.4 GM/DL Prothrombin Time 11.2 SEC Prothromb Time International 1.0 RATIO Ratio Test 09/13/16 06:01 White Blood Count 6.8 TH/MM3 Red Blood Count 3.63 MIL/MM3 Hemoglobin 10.9 GM/DL Hematocrit 31.8 % Mean Corpuscular Volume 87.7 FL Mean Corpuscular Hemoglobin 30.0 PG Mean Corpuscular Hemoglobin 34.2 % Concent Red Cell Distribution Width 16.6 % Platelet Count 175 TH/MM3 Mean Platelet Volume 11.5 FL Neutrophils (%) (Auto) 56.2 % Lymphocytes (%) (Auto) 27.0 % Monocytes (%) (Auto) 14.0 % Eosinophils (%) (Auto) 2.6 % Basophils (%) (Auto) 0.2 % Neutrophils # (Auto) 3.8 TH/MM3 Lymphocytes # (Auto) 1.8 TH/MM3 Monocytes # (Auto) 1.0 TH/MM3 Eosinophils # (Auto) 0.2 TH/MM3 Basophils # (Auto) 0.0 TH/MM3 CBC Comment DIFF FINAL Differential Comment ASSESSMENT/PLAN: hepatitis c -will need treatment op elevated liver enzymes, rhabdomyolysis, most likely drug reaction secondary Lipitor-awaiting liver biopsy and serology liver subcapsular hematoma after liver biopsy -hb stable Recommendations continue Actigall/Mucomyst monitor lfts fu liver biopsy fu serology hep c treatment op It was a pleasure seeing Fabian Angeles Thank you for this consult. Entered by: Shilpi Delgadillo MD Sep 13, 2016 15:09
[2016-09-13 15:54] LABS: HEP B DNA R1 LESS THAN 20 IU/mL (()); HEP B DNA R2 LESS THAN 1.30 (())
[2016-09-13] MEDS: ACETYLCYSTEINE 20% 6,000 MG/30 ML ORAL SOLN VIAL PO SCH (21:00)
[2016-09-14] VITALS (9 sets, daily range): BP systolic 169–198; BP diastolic 76–90; PULSE 53–70; RESP 16–25; TEMP 96.8–98.5; O2SAT 94–97
[2016-09-14] MEDS: CHLORHEXIDINE GLUCONATE 2 % 1 PACK (2 CLOTHS)(taper/protocol) TOP SCH (02:40)
[2016-09-14] MEDS: HEPARIN SODIUM - SQ 10,000 UNITS/ML VIAL SQ SCH ×2 (02:40→14:28)
[2016-09-14 05:28] LABS: BASOPHIL # 0.1 TH/MM3 (0-0.2); BASOPHIL % 1.2 % (0.0-2.0); EOSINOPHIL # 0.3 TH/MM3 (0-0.4); EOSINOPHIL % 4.1 % (0.0-4.0); HEMATOCRIT 31.5 % (35.0-46.0); HEMO FLAGS DIFF FINAL; LYMPH % 29.1 % (9.0-44.0); LYMPHOCYTE # 2.2 TH/MM3 (1.0-4.8); MEAN CELL VOLUME 87.4 FL (80.0-100.0); MEAN CORPUSCULAR HGB CONC 34.3 % (32.0-36.0); MONO % 12.3 % (0.0-8.0); NEUT % 53.3 % (16.0-70.0); PLATELET COUNT 183 TH/MM3 (150-450); RED BLOOD COUNT 3.61 MIL/MM3 (4.00-5.30); RED CELL DISTRIBUTION WIDTH 16.3 % (11.6-17.2); WHITE BLOOD COUNT 7.5 TH/MM3 (4.0-11.0)
[2016-09-14] MEDS: INSULIN NovoLIN REGULAR SUPPLEMENTAL SCALE SQ SCH ×4 (05:29→20:59)
[2016-09-14 05:42] LABS: PROTHROMBIN TIME - PATIENT 11.3 SEC (9.8-11.6)
[2016-09-14 05:55] LABS: ANION GAP 8 MEQ/L (5-15); AST (GOT) 341 U/L (15-37); BICARBONATE 27.1 MEQ/L (21.0-32.0); BLOOD UREA NITROGEN 22 MG/DL (7-18); CHLORIDE 104 MEQ/L (98-107); GLOMERULAR FILTRATION RATE 42 ML/MIN (>89); MAGNESIUM 1.6 MG/DL (1.5-2.5); POTASSIUM 3.3 MEQ/L (3.5-5.1); SODIUM (NA) 139 MEQ/L (136-145)
[2016-09-14 06:09] LABS: ALKALINE PHOSPHATASE 370 U/L (45-117); ALT (GPT) 264 U/L (10-53); CREATINE KINASE 2381 U/L (26-192); TOTAL BILIRUBIN ADULT 1.1 MG/DL (0.2-1.0)
[2016-09-14 06:28] LABS: CKMB 6.7 NG/ML (0.5-3.6)
[2016-09-14] MEDS: SODIUM CHLORIDE 0.9% FLUSH 5 ML FLUSH FLUSH SCH ×2 (09:00→21:00)
[2016-09-14] MEDS: INSULIN DETEMIR 100 UNITS/ML VIAL SQ SCH ×2 (09:00→20:52)
[2016-09-14] MEDS: URSODIOL 300 MG CAP PO SCH ×2 (09:06→20:52)
[2016-09-14] MEDS: POTASSIUM CHLORIDE 20 MEQ CONTROLLED RELEASE TAB PO SCH (09:06)
[2016-09-14] MEDS: METOPROLOL SUCCINATE 50 MG EXTENDED RELEASE TAB PO SCH (09:06)
[2016-09-14] MEDS: NIFEdipine 60 MG SUSTAINED RELEASE TAB PO SCH (09:06)
[2016-09-14] MEDS: PANTOPRAZOLE SOD 20 MG DELAYED RELEASE TAB PO SCH (09:06)
[2016-09-14] MEDS: ACETAMINOPHEN/HYDROcodone 325 MG/10 MG TAB PO PRN ×3 (09:07→22:25)
[2016-09-14 09:50] LABS: HEPATITIS C RNA GENOTYPE 2a or 2c (())
[2016-09-14] MEDS: ACETYLCYSTEINE 20% 6,000 MG/30 ML ORAL SOLN VIAL PO SCH ×2 (10:20→21:05)
--- NOTE | 2016-09-14 11:33 | HHI.CCPN ---
Subjective Remarks/Hospital Course 66-year-old female with hypertension, anxiety, hyperlipidemia, who presents with a 1-2 week history of progressive malaise, as well as nausea, non-bloody, non-coffee ground emesis. She underwent liver biopsy that was complicated by small subcapsular hematoma. [facility] was consulted to assist with medical management in the ICU 09/12 No acute events overnight. Patient is lying in bed in NAD. Afebrile. H/H stable. s/p CT guided liver biopsy yesterday. 09/13: Resting comfortably in bed in no acute distress. Afebrile. Blood pressure somewhat elevated. Hemoglobin stable SUBJECTIVE: 09/14: Strength upper extremity weakness has returned normal. Blood pressure somewhat elevated likely secondary to anxiety/whitecoat. Denies chest pain or shortness of breath. Afebrile. Objective Vital Signs Date Time Temp Pulse Resp B/P Pulse Ox O2 Delivery O2 Flow Rate FiO2 09/14/16 10:07 20 09/14/16 06:08 63 09/14/16 04:00 98.0 175/81 94 Intake and Output 09/13/16 09/13/16 09/14/16 08:00 16:00 00:00 Intake Total 760 ml 955 ml 740 ml Output Total 600 ml 700 ml 800 ml Balance 160 ml 255 ml -60 ml Result Diagram: 09/14/16 0511 09/14/16 0511 Imaging Last Impressions Liver Biopsy CT 09/11/16 0000 Signed Impressions: Service Date/Time: Sunday, September 11, 2016 15:19 - CONCLUSION: Liver biopsy with small subcapsular hematoma. This will be followed carefully. Chaz Burgess MD FACRADDENDUM: Discussed with Dr. Mills. Patient will be placed in the intensive care for close observation. Repeat H&H is pending. Chaz Burgess MD FACR Lumbar Spine X-Ray 09/10/16 0600 Signed Impressions: Service Date/Time: August 08:15 - CONCLUSION: Degenerative changes. No acute abnormality.. Farhana Guerrero MD Abdomen/Pelvis CT 09/09/16 0000 Signed Impressions: Service Date/Time: Friday, September 09, 2016 12:27 - CONCLUSION: Normal liver, gallbladder and biliary tree. Multiple bilateral renal calyceal punctate stone is nonobstructive. Surgical absence of uterus. Degenerative changes of the lumbar spine Ghassan Swift MD Objective Remarks GENERAL: 66 yo AAF lying in bed in NAD SKIN: Warm and dry. Vitiligo lips, extremities HEAD: Normocephalic. EYES: No scleral icterus. No injection or drainage. NECK: Supple, trachea midline. No JVD or lymphadenopathy. CARDIOVASCULAR: [place], RR. S1, S2. No S4. No murmurs, gallops, or rubs. RESPIRATORY: Breath sounds equal bilaterally. CTAB. No accessory muscle use. GASTROINTESTINAL: Abdomen soft, non-tender, nondistended. Hypo BS MUSCULOSKELETAL: Tr LE edema. BACK: Nontender without obvious deformity. No CVA tenderness. Neuro: Awake and alert strength is equal symmetric bilaterally. Normal sensation. A/P Assessment and Plan Neuro/Psych: Anxiety Xanax 0.5 mg every 4 hours as needed anxiety. [place] PRN pn amangement. Awake and alert Neuro- Dr. Carter is following re possible inflammatory myopathy Might need muscle bx Pulm: Acute resp insuff Oxygen PRN keep sat >92%. Currently on RA Bronchodilators- DuoNeb Q6 PRN CV: HTN HLP Monitor HR and BP keep MAP>65mmHg On Toprol XL 100mg daily and nifedipine 60 daily Add hydralazine 25 3 times a day Home on Metoprolol 100 mg daily and Losartan HCTZ 100/25 1 tab daily. echo EF 65%. NRWMA, JOSÉ ANTONIO 51 mmHg. /Renal: MONIK - rhabdo? Monitor renal function, I/O's, avoid nephrotoxins On 1/2 NS w/KCl @ 75ml/hr, Renal- Dr. Daley Renal function improving GI: Rhabdo Hep C ab+ ->2a or 2c. Viral load [id number] Elevated transaminases - rhabdo - atorvastatin most likely vs inflam myositis On PO diet, on Protonix 20mg daily Monitor LFT, s/p CT guided liver biopsy with small subscapular hematoma Aldolase 62. CPR 1.00 ASH 123 ? sig SPEP - hypoalb - chronic dz CPK trending down Liver bx results pending. No bleed. ID: Monitor for signs of infections ( Fever, WBC) Heme: Anemia Monitor CBC, coags Endo: DM On NPH 10 U BID a home w/SSI 16 U SSI past 24 hours. Increase SSI to medium scale for glycemic control, Levemir 15u Q12 GI prophylaxis- On Protonix 20mg daily DVT prophylaxis- on Heparin SQ Level 2 Patient stable from a critical care standpoint. We will assign to hospitalist in a 09/15 and transfer to floor. Brock Carr MD Sep 14, 2016 11:33
--- NOTE | 2016-09-14 11:38 | HHI.NPPN ---
Subjective Complaints: Abdominal Pain, Obesity Renal Failure: Acute Interval History patient was seen and examined. Renal function has improved. Review of Systems Musculoskeletal MS: Pain/Stiffness MS Remarks back pain, thigh pain Objective Data Data 09/13/16 09/14/16 19:00 07:00 Intake Total 955 ml 1580 ml Output Total 700 ml 1800 ml Balance 255 ml -220 ml Intake Oral 480 ml 720 ml IV Total 475 ml 860 ml Other 0 ml Output Urine Total 700 ml 1800 ml # Bowel Movements 0 0 Vital Signs Date Time Temp Pulse Resp B/P Pulse Ox O2 Delivery O2 Flow Rate FiO2 09/14/16 10:07 20 09/14/16 06:08 63 09/14/16 04:00 98.0 54 23 175/81 94 09/14/16 04:00 53 09/14/16 02:00 54 09/14/16 00:00 70 09/14/16 00:00 98.1 70 25 182/82 94 09/13/16 22:00 68 09/13/16 20:00 98.2 65 30 183/80 95 09/13/16 20:00 65 09/13/16 18:00 57 09/13/16 16:00 54 09/13/16 16:00 98.3 64 18 140/65 98 09/13/16 14:00 57 09/13/16 14:00 57 09/13/16 12:00 98.0 69 22 190/84 95 09/13/16 12:00 54 -: 09/14/16 0511 09/14/16 0511 Physical Exam General Appearance: Well Developed, Well Nourished, No Acute Distress, Comfortable Eyes Eye Exam: Pupils Equal Throat Throat Exam: Oral Mucosa [place] & Moist Pulmonary Resp Exam: Clear Bilaterally, Breath Sounds Equal, No Distress Cardiology CV Exam: Regular, Normal Sinus Rhythm, Good Perfusion Gastrointestinal/Abdomen GI Exam: Soft, Non-Tender, Bowel Sounds Present Musculoskeletal MS Exam: Joints Intact, Good Strength Integumentary Skin Exam: Clear, Warm, Dry, Intact Extremeties Extremities Exam: No Edema, Pedal Pulses Palpable Neurologic Neuro Exam: Alert, Awake, Oriented, Speech Clear Assessment/Plan Discussed Condition With: Patient, Spouse, Son Assessment Summary: MONIK/Acute Renal Failure, Proteinuria, Hypertension, Diabetes Mellitus Problem List: (1) Acute renal failure Plan: MONIK likely due to rhabdomyolysis. Unlikely to be Cryoglobulinemic GN as complement levels are normal. Taper off fluids as CPK is improving. Avoid nephrotoxic agents. Monitor CPK. Monitor urine output and renal function. Avoid Statins in the future. (2) Hypokalemia Plan: Improved. (3) Elevated LFTs Plan: s/p liver biopsy. She has tested positive for Hepatitis C. Remote history of IV drug abuse. (4) DMII (diabetes mellitus, type 2) Plan: Blood sugars in 200s continue insulin, and avoid oral hypoglycemics, goal 140-180 mg/dL (5) HTN (hypertension) Plan: monitor blood pressure, avoid ASH as she has had an allergy (? angioedema ) in past and also due to OMNIK continue home medications, titrate as needed Plan I will sign off at this time. She can be discharged in 1-2 days. Problem Qualifiers (1) Acute renal failure: Qualified Code: N17.9 - Acute renal failure, unspecified acute renal failure type Pete Daley MD Sep 14, 2016 11:38
[2016-09-14] MEDS: POTASSIUM CHLORIDE INJ 30 MEQ in SODIUM CHLOR 0.45% 1000 ML INJ 1,000 ML IV SCH ×2 (14:04→22:25)
[2016-09-14] MEDS: hydrALAZINE HCL 25 MG TAB PO SCH ×2 (14:28→20:52)
[2016-09-14] MEDS ORDERED: SUCRALFATE 1 GM/10 ML CUP PO ONE (20:30)
[2016-09-14] MEDS: ONDANSETRON HCL 4 MG/2 ML VIAL IV PUSH PRN (20:39)
[2016-09-14] MEDS: ALPRAZolam 0.5 MG TAB PO PRN (22:01)
[2016-09-15] VITALS (7 sets, daily range): BP systolic 149–203; BP diastolic 72–91; PULSE 61–75; RESP 17–18; TEMP 98.2–100; O2SAT 93–97
[2016-09-15] MEDS: HEPARIN SODIUM - SQ 10,000 UNITS/ML VIAL SQ SCH ×2 (01:36→13:02)
[2016-09-15] MEDS: INSULIN NovoLIN REGULAR SUPPLEMENTAL SCALE SQ SCH ×4 (01:36→17:41)
[2016-09-15] MEDS: ALPRAZolam 0.5 MG TAB PO PRN (03:43)
[2016-09-15] MEDS: cloNIDine HCL 0.1 MG TAB PO PRN (03:43)
[2016-09-15] MEDS: ONDANSETRON HCL 4 MG/2 ML VIAL IV PUSH PRN (03:44)
[2016-09-15] MEDS: CHLORHEXIDINE GLUCONATE 2 % 1 PACK (2 CLOTHS)(taper/protocol) TOP SCH (03:50)
[2016-09-15 06:25] LABS: AUTOMATED NEUTROPHIL # 6.5 TH/MM3 (1.8-7.7); BASOPHIL # 0.1 TH/MM3 (0-0.2); BASOPHIL % 1.5 % (0.0-2.0); EOSINOPHIL % 0.2 % (0.0-4.0); HEMATOCRIT 33.3 % (35.0-46.0); HEMO FLAGS DIFF FINAL; MEAN CELL VOLUME 87.5 FL (80.0-100.0); MEAN CORPUSCULAR HEMOGLOBIN 29.3 PG (27.0-34.0); MEAN CORPUSCULAR HGB CONC 33.5 % (32.0-36.0); MONO % 8.7 % (0.0-8.0); NEUT % 68.6 % (16.0-70.0); PLATELET COUNT 205 TH/MM3 (150-450); RED BLOOD COUNT 3.81 MIL/MM3 (4.00-5.30); RED CELL DISTRIBUTION WIDTH 16.6 % (11.6-17.2); WHITE BLOOD COUNT 9.5 TH/MM3 (4.0-11.0)
[2016-09-15] MEDS: hydrALAZINE HCL 25 MG TAB PO SCH ×3 (06:31→20:59)
[2016-09-15 07:01] LABS: ALKALINE PHOSPHATASE 399 U/L (45-117); ALT (GPT) 277 U/L (10-53); ANION GAP 9 MEQ/L (5-15); AST (GOT) 367 U/L (15-37); BICARBONATE 27.3 MEQ/L (21.0-32.0); BLOOD UREA NITROGEN 20 MG/DL (7-18); CHLORIDE 99 MEQ/L (98-107); CREATINE KINASE 1371 U/L (26-192); GLOMERULAR FILTRATION RATE 47 ML/MIN (>89); MAGNESIUM 1.5 MG/DL (1.5-2.5); POTASSIUM 3.8 MEQ/L (3.5-5.1); SODIUM (NA) 135 MEQ/L (136-145); TOTAL BILIRUBIN ADULT 1.1 MG/DL (0.2-1.0)
[2016-09-15 07:26] LABS: CKMB 6.3 NG/ML (0.5-3.6)
[2016-09-15] MEDS: SODIUM CHLORIDE 0.9% FLUSH 5 ML FLUSH FLUSH SCH ×2 (09:00→21:03)
[2016-09-15] MEDS: URSODIOL 300 MG CAP PO SCH ×2 (09:00→20:59)
[2016-09-15] MEDS: ACETAMINOPHEN/HYDROcodone 325 MG/10 MG TAB PO PRN ×2 (10:41→21:01)
[2016-09-15] MEDS: METOPROLOL SUCCINATE 50 MG EXTENDED RELEASE TAB PO SCH (10:48)
[2016-09-15] MEDS: PANTOPRAZOLE SOD 20 MG DELAYED RELEASE TAB PO SCH (10:48)
[2016-09-15] MEDS: POTASSIUM CHLORIDE 20 MEQ CONTROLLED RELEASE TAB PO SCH (10:49)
[2016-09-15] MEDS: NIFEdipine 60 MG SUSTAINED RELEASE TAB PO SCH (10:49)
[2016-09-15] MEDS: INSULIN DETEMIR 100 UNITS/ML VIAL SQ SCH ×2 (10:50→21:02)
[2016-09-15] MEDS: POTASSIUM CHLORIDE INJ 30 MEQ in SODIUM CHLOR 0.45% 1000 ML INJ 1,000 ML IV SCH (17:08)
--- NOTE | 2016-09-15 17:56 | HHI.GIFU ---
Subjective Remarks Sitting up on side of bed. States feeling much better. No n/v. Not much appetite today. Pain improved, mild tenderness in RUQ at site of liver biopsy. (Silva Leyva) Objective Vitals I&O Vital Signs Date Time Temp Pulse Resp B/P Pulse Ox O2 Delivery O2 Flow Rate FiO2 09/15/16 16:00 98.4 73 18 177/85 94 09/15/16 12:00 98.2 61 18 149/72 94 09/15/16 04:00 98.6 75 18 203/91 96 09/15/16 03:09 93 09/15/16 00:00 98.2 74 17 179/85 93 09/14/16 20:00 96.8 67 18 198/90 97 I/O 09/14/16 09/14/16 09/14/16 09/15/16 09/15/16 09/15/16 07:00 15:00 23:00 07:00 15:00 23:00 Intake Total 840 ml 1306 ml 120 ml 120 ml 1440 ml Output Total 1000 ml 300 ml Balance -160 ml 1306 ml 120 ml -180 ml 1440 ml Intake Oral 240 ml 600 ml 120 ml 120 ml 1440 ml IV Total 600 ml 706 ml Output Urine Total 1000 ml 300 ml # Voids 4 4 5 # Bowel Movements 0 1 0 Laboratory Laboratory Tests Test 09/15/16 06:01 White Blood Count 9.5 Red Blood Count 3.81 Hemoglobin 11.2 Hematocrit 33.3 Mean Corpuscular Volume 87.5 Mean Corpuscular Hemoglobin 29.3 Mean Corpuscular Hemoglobin 33.5 Concent Red Cell Distribution Width 16.6 Platelet Count 205 Mean Platelet Volume 10.9 Neutrophils (%) (Auto) 68.6 Lymphocytes (%) (Auto) 21.0 Monocytes (%) (Auto) 8.7 Eosinophils (%) (Auto) 0.2 Basophils (%) (Auto) 1.5 Neutrophils # (Auto) 6.5 Lymphocytes # (Auto) 2.0 Monocytes # (Auto) 0.8 Eosinophils # (Auto) 0.0 Basophils # (Auto) 0.1 CBC Comment DIFF FINAL Differential Comment Sodium Level 135 Potassium Level 3.8 Chloride Level 99 Carbon Dioxide Level 27.3 Anion Gap 9 Blood Urea Nitrogen 20 Creatinine 1.36 Estimat Glomerular Filtration 47 Rate Random Glucose 257 Calcium Level 8.6 Phosphorus Level 3.3 Magnesium Level 1.5 Total Bilirubin 1.1 Aspartate Amino Transf 367 (AST/SGOT) Alanine Aminotransferase 277 (ALT/SGPT) Alkaline Phosphatase 399 Total Creatine Kinase 1371 Creatine Kinase MB 6.3 Creatine Kinase MB % 0.5 Total Protein 9.0 Albumin 2.5 Imaging Last Impressions Liver Biopsy CT 09/11/16 0000 Signed Impressions: Service Date/Time: Sunday, September 11, 2016 15:19 - CONCLUSION: Liver biopsy with small subcapsular hematoma. This will be followed carefully. Chaz Burgess MD FACRADDENDUM: Discussed with Dr. Mills. Patient will be placed in the intensive care for close observation. Repeat H&H is pending. Chaz Burgess MD FACR Lumbar Spine X-Ray 09/10/16 0600 Signed Impressions: Service Date/Time: August 08:15 - CONCLUSION: Degenerative changes. No acute abnormality.. Farhana Guerrero MD Abdomen/Pelvis CT 09/09/16 0000 Signed Impressions: Service Date/Time: Friday, September 09, 2016 12:27 - CONCLUSION: Normal liver, gallbladder and biliary tree. Multiple bilateral renal calyceal punctate stone is nonobstructive. Surgical absence of uterus. Degenerative changes of the lumbar spine Ghassan Swift MD Physical Exam HEENT: Normocephalic; atraumatic; no jaundice. CHEST: CTA CARDIAC: RRR ABDOMEN: Soft, nondistended, nontender; no hepatosplenomegaly; bowel sounds are present in all four quadrants. EXTREMITIES: No clubbing, cyanosis, or edema. SKIN: Normal; no rash; no jaundice. CATEGORY MANAGER: No focal deficits; alert and oriented times three. (Silva Leyva) Assessment and Plan Plan ASSESSMENT: - Acute hepatitis/elevated LFTs. Abdomen/Pelvis CT (09/09/16)----> Normal liver , gallbladder and biliary tree. Multiple bilateral renal calyceal punctate stone is nonobstructive. Surgical absence of uterus. Degenerative changes of the lumbar spine. On admission, T. Bili 1.8, AST 1023, ALT 419, Alk Phosph 571, GGT 1432, CPK > 14,000. ESR 63. Pt reports she has had nausea and generalized malaise/fatigue, possible mild fever/chills, but no other GI symptoms such as pain or diarrhea. She has lost about 30 lbs over the past year. No hx of hepatitis or liver disease. Occasional ETOH. No drug use. Only new medication is omeprazole. No herbal supplements. No recent travel. Did recently have lobster tail, but no other suspicious foods. No new sexual partners. Pt has acute hepatitis, unclear etiology. No acetaminophen use. Also, patient has vitiligo and will need to rule out autoimmune. Hepatitis panel for Hepatitis C Ab (+), VIral load 2,820,000, Genotype 2a or 2c. Cryoglobulin pending. ASIM negative, AMA pending, ASMA negative, AFP 3.9, Alpha 1 Antitrypsin 201, Ceruloplasmin pending. S/P Liver biopsy (09/14/16), pathology pending. LFTs improving, T. Bili 1.1, AST 367, ALT 277, Alk Phopsh 399. - Liver subcapsular hematoma after liver biopsy. HH stable. - Rhabdomyolysis. CPK > 14,000 on admission, down to 1371. No fall/injuries. She has had decreased po intake. - ARF with electrolyte abnormalities. Improving. Renal consulted. - Nausea, generalized malaise. 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 Retroflexed views revealed no abnormalities. The patient reports that she also had a colonoscopy in 2012 at which time 6 polyps were removed. Improved. PPI PLAN: - GUNJAN - Await pathology - Await AMA, Ceruloplasmin - Await Cryoglobulins - PPI - Monitor labs - Supportive care - Further recommendations to follow based on results of above - Pt seen and examined by Dr. Martines and myself and this note is written on his behalf (Silva Leyva) Physician Comments Patient seen and examined Agree with above Continue with current supportive care Monitor labs Await rest of workup and pathology Probable discharge soon from a GI standpoint to follow-up as outpatient for further treatment of hep C (Arthur Martines MD) Silva Leyva Sep 15, 2016 17:56 Arthur Martines MD Sep 15, 2016 18:10
[2016-09-15] MEDS: ACETYLCYSTEINE 20% 6,000 MG/30 ML ORAL SOLN VIAL PO SCH (21:13)
--- NOTE | 2016-09-15 23:28 | HHI.PR ---
Subjective Remarks patient is feeling much better than on admission. She feels like she will be up go home in next couple days. Denies any chest pain or shortness of breath. Still with pain in right upper quadrant after liver biopsy, however this is improving. Objective Vital Signs Date Time Temp Pulse Resp B/P Pulse Ox O2 Delivery O2 Flow Rate FiO2 09/15/16 21:18 97 21 09/15/16 20:00 100.0 72 18 178/85 96 09/15/16 16:00 98.4 73 18 177/85 94 09/15/16 12:00 98.2 61 18 149/72 94 09/15/16 04:00 98.6 75 18 203/91 96 09/15/16 03:09 93 09/15/16 00:00 98.2 74 17 179/85 93 I/O 09/14/16 09/14/16 09/14/16 09/15/16 09/15/16 09/15/16 07:00 15:00 23:00 07:00 15:00 23:00 Intake Total 840 ml 1306 ml 120 ml 120 ml 1440 ml Output Total 1000 ml 300 ml Balance -160 ml 1306 ml 120 ml -180 ml 1440 ml Intake Oral 240 ml 600 ml 120 ml 120 ml 1440 ml IV Total 600 ml 706 ml Output Urine Total 1000 ml 300 ml # Voids 4 4 5 # Bowel Movements 0 1 0 Result Diagram: 09/15/16 0609/15/16600 Objective Remarks GENERAL: sitting up in bed. Appears comfortable. Alert and oriented 3. smiling today. SKIN: Warm and dry. HEAD: Normocephalic. EYES: No scleral icterus. No injection or drainage. NECK: Supple, trachea midline. No JVD. CARDIOVASCULAR: Regular rate and rhythm without murmurs, gallops, or rubs. RESPIRATORY: Breath sounds equal bilaterally. No accessory muscle use. GASTROINTESTINAL: Abdomen soft, non-tender, nondistended. small Band-Aid over right flank. No ecchymosis. MUSCULOSKELETAL: No cyanosis, or edema. no muscle tenderness. BACK: Nontender without obvious deformity. No CVA tenderness. A/P Assessment and Plan 09/15/16 Glucose elevated. Increase insulin Blood pressure elevated. Add back Dyazide. Gui to follow-up for hepatitis C treatment as outpatient with GI //Rhabdomyolysis. Acute Markedly elevated CK at above 14,000 -ESR elevated in the 60s. -Continue to hold statin medication. - Nephrology following. Appreciate assistance -CK continues elevated, renal function improving. Continue to monitor. Continue IV fluids -Neurology following. Appreciate assistance. Patient may need EMG or muscle biopsy if no improvement. //Acute kidney injury. -Creatinine 3.4 on admission. Baseline creatinine 1.3. -Urine workup ordered. -Nephrology following. Appreciate assistance. = 09/10. Creatinine improving 2.8. Continue fluids. -09/11. Creatinine continues improving. Continue fluids. -09/15. Much improved. Continue to monitor. //Transaminitis. //Hepatitis C positive -Initially thought this was a false elevation secondary to rhabdomyolysis, however GGT is elevated. INR normal, liver function appears to be preserved at this time. Hepatitis profile positive for hepatitis C antibody. Quantification ordered. -Gastroenterology following. Appreciate assistance. -09/11. Liver biopsy pending. Discussed with Dr. Burgess in radiology. Possible subcapsular hematoma. Etiology monitoring patient, will transfer to unit if necessary. Appreciate assistance. -09/15. Liver biopsy still pending. Follow-up with GI as outpatient for treatment of hepatitis C. //Hypokalemia on admission. Improved.. Avoid over replacement in setting of rhabdomyolysis. -09/10. Status post by mouth potassium. Continue monitor. 09/11. Potassium slightly low. Continue to monitor. =potassium stable. Monitor as necessary. //Diabetes mellitus. //Hypoglycemia on admission. Acute. -Hypoglycemia likely secondary to decreased insulin clearance in the setting of renal failure. Also possibly secondary to hepatic impairment with decreased gluconeogenesis activity. Glucose had been in the 40s in the mornings prior to admission. -Initially managed on D5 on admission, given 10 mg of by mouth prednisone. Continues on normal saline. Continue to monitor closely. Insulin sliding scale. -09/10. Glucose now elevated in the 200s. Will add low-dose Levemir twice a day. Moving target, expect to require more insulin as kidneys improve. 09/11. Glucose continues elevated. We'll increase Levemir again. 09/15. Patient still with hyperglycemia, glucose in the 270s. We will further increase Levemir. //Worsening of chronic low back pain -Bilateral lower extremity weakness reported. Exam unremarkable -Possibly related to rhabdomyolysis -Imaging of lumbar spine with only chronic changes. -Appreciate neurology assistance. No acute findings. //GERD. Continue home PPI //Hyperlipidemia. Chronic. Hold statin medication as this can cause rhabdo. //Accelerated Hypertension on admission. Improving. Blood pressure elevated on admission, however improved subsequently. Clonidine when necessary. Monitor closely. Continue home metoprolol. -09/10 Continue nifedipine XL which was started on admission -09/11. Continues elevated. Increased nifedipine. Cortisol ordered 09/14. Systolic blood pressure in the 180s. Improved with when necessary's. and back Dyazide. //Prophylaxis. Heparin. Discharge Planning continued treatment of rhabdomyolysis, renal failure Paras Deleon MD Sep 15, 2016 23:28
[2016-09-16] VITALS: BP 177/77; PULSE 78; RESP 18; TEMP 99.3; O2SAT 93
[2016-09-16] MEDS: ACETAMINOPHEN/HYDROcodone 325 MG/10 MG TAB PO PRN ×4 (00:06→20:05)
[2016-09-16] MEDS: HEPARIN SODIUM - SQ 10,000 UNITS/ML VIAL SQ SCH ×2 (00:07→14:52)
[2016-09-16] MEDS: ALPRAZolam 0.5 MG TAB PO PRN ×2 (00:09→23:08)
[2016-09-16] MEDS: INSULIN NovoLIN REGULAR SUPPLEMENTAL SCALE SQ SCH ×5 (00:15→23:11)
[2016-09-16] MEDS: CHLORHEXIDINE GLUCONATE 2 % 1 PACK (2 CLOTHS)(taper/protocol) TOP SCH (03:34)
[2016-09-16 05:00] VITALS: BP 166/74; PULSE 70; RESP 18; TEMP 100; O2SAT 93
[2016-09-16] MEDS: hydrALAZINE HCL 25 MG TAB PO SCH ×3 (06:02→20:14)
[2016-09-16] MEDS: POTASSIUM CHLORIDE INJ 30 MEQ in SODIUM CHLOR 0.45% 1000 ML INJ 1,000 ML IV SCH (06:40)
[2016-09-16 08:00] VITALS: BP 129/71; PULSE 75; RESP 18; TEMP 99.4; O2SAT 95
[2016-09-16 08:36] LABS: BICARBONATE 24.5 MEQ/L (21.0-32.0); POTASSIUM 4.1 MEQ/L (3.5-5.1)
[2016-09-16] MEDS: HYDROCHLOROTHIAZIDE 25 MG TAB PO SCH (08:59)
[2016-09-16] MEDS: URSODIOL 300 MG CAP PO SCH ×2 (08:59→20:04)
[2016-09-16] MEDS: PANTOPRAZOLE SOD 20 MG DELAYED RELEASE TAB PO SCH (08:59)
[2016-09-16] MEDS: INSULIN DETEMIR 100 UNITS/ML VIAL SQ SCH ×2 (08:59→20:14)
[2016-09-16] MEDS: LOSARTAN 50 MG TAB PO SCH (09:00)
[2016-09-16] MEDS: POTASSIUM CHLORIDE 20 MEQ CONTROLLED RELEASE TAB PO SCH (09:01)
[2016-09-16] MEDS: NIFEdipine 60 MG SUSTAINED RELEASE TAB PO SCH (09:01)
[2016-09-16] MEDS: METOPROLOL SUCCINATE 50 MG EXTENDED RELEASE TAB PO SCH (09:01)
[2016-09-16] MEDS: ACETYLCYSTEINE 20% 6,000 MG/30 ML ORAL SOLN VIAL PO SCH ×2 (09:11→20:06)
[2016-09-16] MEDS: SODIUM CHLORIDE 0.9% FLUSH 5 ML FLUSH FLUSH SCH ×2 (09:13→20:09)
--- NOTE | 2016-09-16 10:05 | HHI.GIFU ---
Subjective Remarks Up in chair. States she had a sharp pain at the site of her liver biopsy last night and that she required pain meds- states still having intermittently if she takes a deep breath. Tolerating diet. Did start ambulating and moving around yesterday. (Silva Leyva) Objective Vitals I&O Vital Signs Date Time Temp Pulse Resp B/P Pulse Ox O2 Delivery O2 Flow Rate FiO2 09/16/16 08:00 99.4 75 18 129/71 95 09/16/16 07:06 18 09/16/16 05:00 100.0 70 18 166/74 93 09/16/16 00:00 99.3 78 18 177/77 93 09/15/16 21:18 97 21 09/15/16 20:00 100.0 72 18 178/85 96 09/15/16 16:00 98.4 73 18 177/85 94 09/15/16 12:00 98.2 61 18 149/72 94 I/O 09/15/16 09/15/16 09/15/16 09/16/16 09/16/16 09/16/16 07:00 15:00 23:00 07:00 15:00 23:00 Intake Total 120 ml 1920 ml 240 ml Output Total 300 ml 500 ml 1300 ml Balance -180 ml 1420 ml -1060 ml Intake Oral 120 ml 1920 ml 240 ml Output Urine Total 300 ml 500 ml 1300 ml # Voids 5 Laboratory Laboratory Tests Test 09/16/16 07:54 Sodium Level 136 Potassium Level 4.1 Chloride Level 103 Carbon Dioxide Level 24.5 Anion Gap 9 Blood Urea Nitrogen 18 Creatinine 1.34 Estimat Glomerular Filtration 48 Rate Random Glucose 137 Calcium Level 8.7 Imaging Last Impressions Liver Biopsy CT 09/11/16 0000 Signed Impressions: Service Date/Time: Sunday, September 11, 2016 15:19 - CONCLUSION: Liver biopsy with small subcapsular hematoma. This will be followed carefully. Chaz Burgess MD FACRADDENDUM: Discussed with Dr. Mills. Patient will be placed in the intensive care for close observation. Repeat H&H is pending. Chaz Burgess MD FACR Lumbar Spine X-Ray 09/10/16 0600 Signed Impressions: Service Date/Time: August 08:15 - CONCLUSION: Degenerative changes. No acute abnormality.. Farhana Guerrero MD Abdomen/Pelvis CT 09/09/16 0000 Signed Impressions: Service Date/Time: Friday, September 09, 2016 12:27 - CONCLUSION: Normal liver, gallbladder and biliary tree. Multiple bilateral renal calyceal punctate stone is nonobstructive. Surgical absence of uterus. Degenerative changes of the lumbar spine Ghassan Swift MD Physical Exam HEENT: Normocephalic; atraumatic; no jaundice. CHEST: CTA CARDIAC: RRR ABDOMEN: Soft, nondistended,mild ruq tenderness; no hepatosplenomegaly; bowel sounds are present in all four quadrants. EXTREMITIES: No clubbing, cyanosis, or edema. SKIN: Normal; no rash; no jaundice. LICENSED EMBALMER SUPERVISOR: No focal deficits; alert and oriented times three. (Silva Leyva) Assessment and Plan Plan ASSESSMENT: - Acute hepatitis/elevated LFTs. Abdomen/Pelvis CT (09/09/16)----> Normal liver , gallbladder and biliary tree. Multiple bilateral renal calyceal punctate stone is nonobstructive. Surgical absence of uterus. Degenerative changes of the lumbar spine. On admission, T. Bili 1.8, AST 1023, ALT 419, Alk Phosph 571, GGT 1432, CPK > 14,000. ESR 63. Pt reports she has had nausea and generalized malaise/fatigue, possible mild fever/chills, but no other GI symptoms such as pain or diarrhea. She has lost about 30 lbs over the past year. No hx of hepatitis or liver disease. Occasional ETOH. No drug use. Only new medication is omeprazole. No herbal supplements. No recent travel. Did recently have lobster tail, but no other suspicious foods. No new sexual partners. Pt has acute hepatitis, unclear etiology. No acetaminophen use. Also, patient has vitiligo and will need to rule out autoimmune. Hepatitis panel for Hepatitis C Ab (+), VIral load 2,820,000, Genotype 2a or 2c. Cryoglobulin pending. ASIM negative, AMA pending, ASMA negative, AFP 3.9, Alpha 1 Antitrypsin 201, Ceruloplasmin pending. S/P Liver biopsy (09/14/16), pathology pending. LFTs improving - Liver subcapsular hematoma after liver biopsy. States she had some discomfort last night with deep breaths, still having today but VS and HH stable- 11.2/33.3. Did start moving around more yesterday - Rhabdomyolysis. CPK > 14,000 on admission, down to 1371. No fall/injuries. She has had decreased po intake. - ARF with electrolyte abnormalities. Improving. Renal consulted. - Nausea, generalized malaise. 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 Retroflexed views revealed no abnormalities. The patient reports that she also had a colonoscopy in 2012 at which time 6 polyps were removed. Improved. PPI PLAN: - GUNJAN - Await pathology - Await AMA, Ceruloplasmin - Await Cryoglobulins - PPI - Monitor labs - Supportive care - Further recommendations to follow based on results of above - Pt seen and examined by Dr. Martines and myself and this note is written on his behalf (Silva Leyva) Physician Comments Patient seen and examined Agree with above Continue with current supportive care Monitor labs Follow-up with GI post discharge We will sign off (Arthur Martines MD) Silva Leyva Sep 16, 2016 10:05 Arthur Martines MD Sep 16, 2016 10:54
--- NOTE | 2016-09-16 10:51 | HHI.PR ---
Subjective Remarks Follow-up for rhabdomyolysis Good urine output, no shortness of breath, denies any myalgia or chest pain. No fever or chills. Objective Vitals Vital Signs Date Time Temp Pulse Resp B/P Pulse Ox O2 Delivery O2 Flow Rate FiO2 09/16/16 08:00 99.4 75 18 129/71 95 09/16/16 07:06 18 09/16/16 05:00 100.0 70 18 166/74 93 09/16/16 00:00 99.3 78 18 177/77 93 09/15/16 21:18 97 21 09/15/16 20:00 100.0 72 18 178/85 96 09/15/16 16:00 98.4 73 18 177/85 94 09/15/16 12:00 98.2 61 18 149/72 94 I/O 09/15/16 09/15/16 09/15/16 09/16/16 09/16/16 09/16/16 07:00 15:00 23:00 07:00 15:00 23:00 Intake Total 120 ml 1920 ml 240 ml Output Total 300 ml 500 ml 1300 ml Balance -180 ml 1420 ml -1060 ml Intake Oral 120 ml 1920 ml 240 ml Output Urine Total 300 ml 500 ml 1300 ml # Voids 5 Result Diagram: 09/15/16 0601 09/16/16 0754 Objective Remarks GENERAL: sitting up in bed. Appears comfortable. Alert and oriented 3. CARDIOVASCULAR: Regular rate and rhythm without murmurs, gallops, or rubs. RESPIRATORY: Breath sounds equal bilaterally. No accessory muscle use. GASTROINTESTINAL: Abdomen soft, non-tender, nondistended. small Band-Aid over right flank. No ecchymosis. MUSCULOSKELETAL: No cyanosis, or edema. no muscle tenderness. BACK: Nontender without obvious deformity. No CVA tenderness. No focal deficits Positive for vitiligo. A/P Assessment and Plan //Rhabdomyolysis. Acute Markedly elevated CK at above 14,000, now down to 1300, restart IVF, recheck CK tomorrow and BMP. Creatinine is stable. Atorvastatin*nephrology has signed off. -Neurology following. Appreciate assistance. Patient may need EMG or muscle biopsy if no improvement. //Acute kidney injury. -Creatinine 3.4 on admission. Baseline creatinine 1.3. Currently at baseline, recheck BMP tomorrow. //Transaminitis. //Hepatitis C positive -Initially thought this was a false elevation secondary to rhabdomyolysis, however GGT is elevated. INR normal, liver function appears to be preserved at this time. Although bilirubin almost normal. Hepatitis profile positive for hepatitis C antibody. Quantification ordered. -Gastroenterology following. Appreciate assistance. -09/11. Liver biopsy pending. Discussed with Dr. Burgess in radiology. Possible subcapsular hematoma. Etiology monitoring patient, will transfer to unit if necessary. Appreciate assistance. -09/15. Liver biopsy still pending. Follow-up with GI as outpatient for treatment of hepatitis C. //Hypokalemia on admission. Improved.. Avoid over replacement in setting of rhabdomyolysis. //Diabetes mellitus. //Hypoglycemia on admission. Acute. Continue Levemir with sliding scale insulin //Worsening of chronic low back pain -Bilateral lower extremity weakness reported. Exam unremarkable -Possibly related to rhabdomyolysis -Imaging of lumbar spine with only chronic changes. -Appreciate neurology assistance. No acute findings. //GERD. Continue home PPI //Hyperlipidemia. Chronic. Hold statin medication as this can cause rhabdo. //Accelerated Hypertension on admission. Improving. Blood pressure elevated on admission, however improved subsequently. Clonidine when necessary. Monitor closely. Continue home metoprolol and Dyazide //Prophylaxis. Heparin. Robyn Nguyen MD Sep 16, 2016 10:51
[2016-09-16 12:00] VITALS: BP 147/69; PULSE 67; RESP 16; TEMP 98.1; O2SAT 96
[2016-09-16] MEDS: SODIUM CHLOR 0.9% 1000 ML INJ 1,000 ML IV SCH (12:01)
[2016-09-16 16:00] VITALS: BP 142/74; PULSE 65; RESP 18; TEMP 98.1; O2SAT 94
--- NOTE | 2016-09-16 17:51 | HHI.PR ---
Review/Management Diagnosis rhabdomyolysis----CPK is decreasing. No evidence for myopathy Plan I do not feel a muscle biopsy is needed at this time Diagnosis/Plan: Subjective Subjective Comments No acute events reported She feels her strength is normal and she is able to ambulate well . Muscle aches have resolved Active Medications Current Medications Medications (Trade) Dose Ordered Sig/Chantel Route Start Time Stop Time Status Last Admin (NS Flush) 2 ml UNSCH PRN FLUSH 09/09/16 13:00 (NS Flush) 2 ml BID FLUSH 09/09/16 21:00 09/16/16 09:13 (Heparin Inj) 5,000 units Q12H SQ 09/09/16 14:00 09/16/16 14:52 (Narcan Inj) 0.4 mg UNSCH PRN IV 09/09/16 13:00 (Catapres) 0.1 mg Q6H PRN PO 09/09/16 13:00 09/15/16 03:43 (Galena 10-325 Mg) 1 tab Q6H PRN PO 09/09/16 21:30 09/16/16 11:56 (Xanax) 0.5 mg Q4H PRN PO 09/09/16 23:00 09/16/16 00:09 (Protonix) 20 mg DAILY PO 09/10/16 09:00 09/16/16 08:59 (Toprol Xl) 100 mg DAILY PO 09/10/16 09:00 09/16/16 09:01 (KCl) 20 meq DAILY PO 09/11/16 10:15 09/16/16 09:01 (Procardia Xl) 60 mg DAILY PO 09/12/16 09:00 09/16/16 09:01 Miscellaneous Information Patient in critical care unit? Ass... Q361D XX 09/11/16 19:00 (Chlorhexidine 2% Cloth) 3 pack UNSCH PRN TOP 09/11/16 19:00 09/16/16 18:49 (Actigall) 300 mg Q12HR PO 09/12/16 21:00 09/16/16 08:59 (D50w (Vial) Inj) 25 ml UNSCH PRN IV PUSH 09/12/16 17:00 (Glucagon Inj) 1 mg UNSCH PRN OTHER 09/12/16 17:00 (NovoLIN R SUPPLEMENTAL SCALE) 1 Q6HR SQ 09/12/16 18:00 09/16/16 17:02 (Mucomyst 20% Liq) 600 mg BID PO 09/13/16 21:00 09/16/16 09:11 (Apresoline) 25 mg Q8HR PO 09/14/16 14:00 09/16/16 14:52 (Zofran Inj) 4 mg Q6HR PRN IV PUSH 09/14/16 20:30 09/15/16 03:44 (Cozaar) 100 mg DAILY PO 09/16/16 09:00 09/16/16 09:00 (Levemir Inj) 16 units Q12HR SQ 09/15/16 21:00 09/16/16 08:59 Hydrochlorothiazide 25 mg 25 mg DAILY PO 09/16/16 09:00 09/16/16 08:59 (NS 1000 ml Inj) 1,000 ml @ 125 mls/hr Q8H IV 09/16/16 11:00 09/16/16 12:01 Allergies Allergies Coded Allergies Flexeril (Verified Adverse Reaction, Mild, UPSET STOMACH, 09/09/16) Exam I&O / VS 09/15/16 09/15/16 09/16/16 15:00 23:00 07:00 Intake Total 1920 ml 240 ml Output Total 500 ml 1300 ml Balance 1420 ml -1060 ml Intake Oral 1920 ml 240 ml Output Urine Total 500 ml 1300 ml # Voids 5 Vital Signs Date Time Temp Pulse Resp B/P Pulse Ox O2 Delivery O2 Flow Rate FiO2 09/16/16 12:00 98.1 67 16 147/69 96 09/16/16 08:00 99.4 75 18 129/71 95 09/16/16 07:06 18 09/16/16 05:00 100.0 70 18 166/74 93 09/16/16 00:00 99.3 78 18 177/77 93 09/15/16 21:18 97 21 09/15/16 20:00 100.0 72 18 178/85 96 Exam Comments alert oriented, speech normal CN 2-12 normal Motor --5/5 proximal UE and proximal LE. 5/5 distal strength Objective Micro and Labs Laboratory Tests Test 09/16/16 07:54 Sodium Level 136 Potassium Level 4.1 Chloride Level 103 Carbon Dioxide Level 24.5 Anion Gap 9 Blood Urea Nitrogen 18 Creatinine 1.34 Estimat Glomerular Filtration 48 Rate Random Glucose 137 Calcium Level 8.7 Jamison Carter PhD Sep 16, 2016 17:51
[2016-09-16 19:54] LABS: MITOCHONDRIAL ABS 20.8 U (())
[2016-09-16 20:00] VITALS: BP 174/79; PULSE 71; RESP 18; TEMP 100.3; O2SAT 96
[2016-09-17 00:30] VITALS: BP 147/67; PULSE 60; RESP 18; TEMP 98.6; O2SAT 98
[2016-09-17] MEDS: HEPARIN SODIUM - SQ 10,000 UNITS/ML VIAL SQ SCH (03:39)
[2016-09-17] MEDS: ACETAMINOPHEN/HYDROcodone 325 MG/10 MG TAB PO PRN ×2 (04:09→09:58)
[2016-09-17 04:15] VITALS: BP 152/83; PULSE 65; RESP 18; TEMP 100.3; O2SAT 96
[2016-09-17] MEDS: hydrALAZINE HCL 25 MG TAB PO SCH (05:42)
[2016-09-17] MEDS: INSULIN NovoLIN REGULAR SUPPLEMENTAL SCALE SQ SCH ×2 (05:44→11:49)
[2016-09-17 08:00] VITALS: BP 154/69; PULSE 71; RESP 16; TEMP 98.9; O2SAT 93
[2016-09-17 08:20] LABS: BICARBONATE 24.3 MEQ/L (21.0-32.0); POTASSIUM 3.6 MEQ/L (3.5-5.1)
[2016-09-17 08:38] LABS: CKMB 3.1 NG/ML (0.5-3.6)
[2016-09-17] MEDS: ACETYLCYSTEINE 20% 6,000 MG/30 ML ORAL SOLN VIAL PO SCH (09:00)
[2016-09-17] MEDS: INSULIN DETEMIR 100 UNITS/ML VIAL SQ SCH (09:57)
[2016-09-17] MEDS: METOPROLOL SUCCINATE 50 MG EXTENDED RELEASE TAB PO SCH (09:57)
[2016-09-17] MEDS: URSODIOL 300 MG CAP PO SCH (09:57)
[2016-09-17] MEDS: LOSARTAN 50 MG TAB PO SCH (09:57)
[2016-09-17] MEDS: PANTOPRAZOLE SOD 20 MG DELAYED RELEASE TAB PO SCH (09:58)
[2016-09-17] MEDS: NIFEdipine 60 MG SUSTAINED RELEASE TAB PO SCH (09:58)
[2016-09-17] MEDS: POTASSIUM CHLORIDE 20 MEQ CONTROLLED RELEASE TAB PO SCH (09:58)
[2016-09-17] MEDS: HYDROCHLOROTHIAZIDE 25 MG TAB PO SCH (09:58)
[2016-09-17] MEDS: SODIUM CHLORIDE 0.9% FLUSH 5 ML FLUSH FLUSH SCH (09:59)
[2016-09-17] MEDS: SODIUM CHLOR 0.9% 1000 ML INJ 1,000 ML IV SCH (11:00)
[2016-09-17] MEDS ORDERED: Ursodiol PO (11:32)
[2016-09-17] MEDS ORDERED: NIFE15TA PO (11:32)
[2016-09-17] MEDS ORDERED: HYDR25TA35 PO (11:32)
[2016-09-17] MEDS ORDERED: PRED50 PO (11:56)
[2016-09-17 12:00] VITALS: BP 190/81; PULSE 66; RESP 16; TEMP 98; O2SAT 96
[2016-09-17] MEDS ORDERED: predniSONE 20 MG TAB PO SCH (12:00)
--- NOTE | 2016-09-17 12:02 | HHI.GIFU ---
Subjective Remarks Up in chair. Would like to go home today. No n/v. Tolerating diet. D/W patient liver biopsy results and treatment plan- patient education handout given (Silva Leyva) Objective Vitals I&O Vital Signs Date Time Temp Pulse Resp B/P Pulse Ox O2 Delivery O2 Flow Rate FiO2 09/17/16 08:00 98.9 71 16 154/69 93 09/17/16 04:15 100.3 65 18 152/83 96 09/17/16 00:30 98.6 60 18 147/67 98 09/16/16 20:00 100.3 71 18 174/79 96 09/16/16 16:00 98.1 65 18 142/74 94 09/16/16 12:00 98.1 67 16 147/69 96 I/O 09/16/16 09/16/16 09/16/16 09/17/16 09/17/16 09/17/16 07:00 15:00 23:00 07:00 15:00 23:00 Intake Total 240 ml 480 ml 480 ml 240 ml 2489 ml Output Total 1300 ml 800 ml 1250 ml Balance -1060 ml 480 ml -320 ml -1010 ml 2489 ml Intake Oral 240 ml 480 ml 480 ml 240 ml IV Total 2489 ml Output Urine Total 1300 ml 800 ml 1250 ml # Voids 3 Laboratory Laboratory Tests Test 09/17/16 07:23 Sodium Level 137 Potassium Level 3.6 Chloride Level 103 Carbon Dioxide Level 24.3 Anion Gap 10 Blood Urea Nitrogen 20 Creatinine 1.46 Estimat Glomerular Filtration 43 Rate Random Glucose 125 Calcium Level 8.4 Total Creatine Kinase 339 Creatine Kinase MB 3.1 Creatine Kinase MB % 0.9 Imaging Last Impressions Liver Biopsy CT 09/11/16 0000 Signed Impressions: Service Date/Time: Sunday, September 11, 2016 15:19 - CONCLUSION: Liver biopsy with small subcapsular hematoma. This will be followed carefully. Chaz Burgess MD FACRADDENDUM: Discussed with Dr. Mills. Patient will be placed in the intensive care for close observation. Repeat H&H is pending. Chaz Burgess MD FACR Lumbar Spine X-Ray 09/10/16 0600 Signed Impressions: Service Date/Time: August 08:15 - CONCLUSION: Degenerative changes. No acute abnormality.. Farhana Guerrero MD Abdomen/Pelvis CT 09/09/16 0000 Signed Impressions: Service Date/Time: Friday, September 09, 2016 12:27 - CONCLUSION: Normal liver, gallbladder and biliary tree. Multiple bilateral renal calyceal punctate stone is nonobstructive. Surgical absence of uterus. Degenerative changes of the lumbar spine Ghassan Swift MD Physical Exam HEENT: Normocephalic; atraumatic; no jaundice. CHEST: CTA CARDIAC: RRR ABDOMEN: Soft, nondistended,nontender; no hepatosplenomegaly; bowel sounds are present in all four quadrants. EXTREMITIES: No clubbing, cyanosis, or edema. SKIN: Normal; no rash; no jaundice. 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 (Silva Leyva) Assessment and Plan Plan ASSESSMENT: - Acute hepatitis/elevated LFTs. Abdomen/Pelvis CT (09/09/16)----> Normal liver , gallbladder and biliary tree. Multiple bilateral renal calyceal punctate stone is nonobstructive. Surgical absence of uterus. Degenerative changes of the lumbar spine. On admission, T. Bili 1.8, AST 1023, ALT 419, Alk Phosph 571, GGT 1432, CPK > 14,000. ESR 63. Pt reports she has had nausea and generalized malaise/fatigue, possible mild fever/chills, but no other GI symptoms such as pain or diarrhea. She has lost about 30 lbs over the past year. No hx of hepatitis or liver disease. Occasional ETOH. No drug use. Only new medication is omeprazole. No herbal supplements. No recent travel. Did recently have lobster tail, but no other suspicious foods. No new sexual partners. Pt has acute hepatitis, unclear etiology. No acetaminophen use. Also, patient has vitiligo and will need to rule out autoimmune. Hepatitis panel for Hepatitis C Ab (+), VIral load 2,820,000, Genotype 2a or 2c. Cryoglobulin pending. ASIM negative, AMA pending, ASMA negative, AFP 3.9, Alpha 1 Antitrypsin 201, Ceruloplasmin pending. S/P Liver biopsy (09/14/16),per pathologist patient has autoimmune hepatitis. Will start Prednisone 40mg po daily. LFT in one week. FU SUZANNE in 2 weeks - Liver subcapsular hematoma after liver biopsy. States she had some discomfort last night with deep breaths, still having today but VS and HH stable- 11.2/33.3. Did start moving around more yesterday - Rhabdomyolysis. CPK > 14,000 on admission, down to 1371. No fall/injuries. She has had decreased po intake. - ARF with electrolyte abnormalities. Improving. Renal consulted. - Nausea, generalized malaise. 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 Retroflexed views revealed no abnormalities. The patient reports that she also had a colonoscopy in 2012 at which time 6 polyps were removed. Improved. PPI PLAN: - GUNJAN - Per pathologist, patient with autoimmune hepatitis - Will start prednisone 40mg po daily - LFT in one week - FU SUZANNE 2 weeks - Await AMA, Ceruloplasmin - Await Cryoglobulins - Okay to d/c home from GI standpoint - Pt seen and examined by Dr. Martines and myself and this note is written on his behalf (Silva Leyva) Physician Comments Patient seen and examined Agree with above Continue with current supportive care Monitor labs Autoimmune hepatitis per pathology We'll start prednisone Okay for discharge from a GI standpoint to follow-up with GI in 1-2 weeks ( Arthur Martines MD) Silva Leyva Sep 17, 2016 12:02 Arthur Martines MD Sep 17, 2016 20:57
--- NOTE | 2016-09-17 15:22 | HHI.DS ---
Discharge Summary Admission Date Sep 09, 2016 at 12:51 Discharge Date: Sep 17, 2016 Admitting Diagnosis acute renal failure, elevated lfts (1) Autoimmune hepatitis ICD Code: K75.4 Diagnosis: Principal (2) Rhabdomyolysis ICD Code: M62.82 Diagnosis: Secondary (3) Acute renal failure ICD Code: N17.9 Diagnosis: Secondary Procedures Liver biopsy Brief History - From Admission 66-year-old female with a history of hypertension, anxiety, hyperlipidemia, who presents with a 1-2 week history of progressive malaise, as well as nausea, non- bloody, non-coffee ground vomiting. She denies any abdominal pain. She does report worsening pain in her bilateral posterior thighs. She visited her primary care yesterday, and was started on PPI. She was called today by primary care, who told her to report to ER for evaluation of kidney failure. She denies any fevers, however does report intermittent chills over the past couple weeks. Denies any constipation or diarrhea. Patient does report worsening of chronic low back pain over the past 2 weeks. She also reports 2 week history of low blood sugars, typically 80s in the morning CBC/BMP: 09/15/16 0601 09/17/16 0723 Significant Findings Laboratory Tests Test 09/15/16 09/16/16 09/17/16 06:01 07:54 07:23 Red Blood Count 3.81 MIL/MM3 (4.00-5.30) Hemoglobin 11.2 GM/DL (11.6-15.3) Hematocrit 33.3 % (35.0-46.0) Monocytes (%) (Auto) 8.7 % (0.0-8.0) Sodium Level 135 MEQ/L (136-145) Blood Urea Nitrogen 20 MG/DL (7-18) 20 MG/DL (7-18) Creatinine 1.36 MG/DL 1.34 MG/DL 1.46 MG/DL (0.50-1.00) (0.50-1.00) (0.50-1.00) Estimat Glomerular Filtration 47 ML/MIN (>89) 48 ML/MIN (>89) 43 ML/MIN (>89) Rate Random Glucose 257 MG/DL 137 MG/DL 125 MG/DL (74-106) (74-106) (74-106) Total Bilirubin 1.1 MG/DL (0.2-1.0) Aspartate Amino Transf 367 U/L (15-37) (AST/SGOT) Alanine Aminotransferase 277 U/L (10-53) (ALT/SGPT) Alkaline Phosphatase 399 U/L (45-117) Total Creatine Kinase 1371 U/L 339 U/L (26-192) (26-192) Creatine Kinase MB 6.3 NG/ML (0.5-3.6) Total Protein 9.0 GM/DL (6.4-8.2) Albumin 2.5 GM/DL (3.4-5.0) Calcium Level 8.4 MG/DL (8.5-10.1) PE at Discharge GENERAL: sitting up in bed. Appears comfortable. Alert and oriented 3. CARDIOVASCULAR: Regular rate and rhythm without murmurs, gallops, or rubs. RESPIRATORY: Breath sounds equal bilaterally. No accessory muscle use. GASTROINTESTINAL: Abdomen soft, non-tender, nondistended. small Band-Aid over right flank. No ecchymosis. MUSCULOSKELETAL: No cyanosis, or edema. no muscle tenderness. BACK: Nontender without obvious deformity. No CVA tenderness. No focal deficits Positive for vitiligo. Pt update on day of discharge CK better, no chest pain or palpitations. No muscle pain. No abdominal pain. Afebrile. Hospital Course 66-year-old female with a history of hypertension, anxiety, hyperlipidemia, who presents with a 1-2 week history of progressive malaise, as well as nausea, non- bloody, non-coffee ground vomiting. Upon admission, the patient was found to have an elevated CK of 14,000, has acute renal failure and rhabdomyolysis. Patient was started in intravenous fluids. Nephrology was consulted, patient CK improved with volume resuscitation. Neurology was also consulted, patient may need an EMG or muscle biopsy as outpatient. CK improved and was in the 300s and discharge. Creatinine went back to baseline around 1.3. Patient was also found to have transaminitis. Patient had positive hepatitis. Gastroenterology was consulted. A liver biopsy was done, pathology report showed autoimmune hepatitis. The patient will be started prednisone per GI and will be discharged on prednisone. Patient will be switched to azathioprine as outpatient. LFTs were improving and discharge. Patient's blood pressure was also uncontrolled hence her antihypertensives were changed. Patient will be discharged to follow-up with gastroenterology and primary care physician. Pt Condition on Discharge: Good Discharge Disposition: Discharge Home Discharge Time: > 30 minutes Discharge Instructions DIET: Follow Instructions for: Heart Healthy Diet, Renal Failure Diet Activities you can perform: Regular-No Restrictions Follow up Referrals: Gastroenterology - 2 Weeks @ [facility] New Orders: HEPATIC FUNCTION VUONG - 1 Week New Medications: Hydralazine (Hydralazine) 25 Mg Tab 25 MG PO Q8HR htn #90 TAB Nifedipine ER 24 HR (Nifedical XL) 60 Mg Tab 60 MG PO DAILY htn #30 TAB Prednisone (Prednisone) 50 Mg Tab 40 MG PO DAILY autoimmune hepatitis #30 TAB ([Ursodiol]) 300 MG CAP 300 MG PO Q12HR #60 CAP Continued Medications: Alprazolam (Alprazolam) 0.5 Mg Tab 0.5 MG PO Q4H PRN ANXIETY Ref 0 TAB Atorvastatin (Atorvastatin) 80 Mg Tab 80 MG PO HS Cholesterol Management #30 Ref 0 TAB Hydrocodone-Acetaminophen (Hydrocodone-Acetaminophen) 10-325 mg Tab 1 TAB PO Q4H PRN PAIN Ref 0 TAB Insulin Human NPH Inj (Novolin N Inj) 1,000 Unit/10 Ml Vial 10 UNITS SQ Blood Sugar Management #10 Ref 0 ML Insulin Human Regular Inj (Novolin R Inj) 1,000 Unit/10 Ml Vial 2-10 UNITS SQ DIRECTED Max dose at bedtime:( )units; sugars less than 150,(0 ) units; sugars 150-199,(2)unit; sugars 200-249,(4)units; sugars 250-299,(6) units; sugars 300-349,(8)units; sugars equal to or greater than 350,(10)units Blood Sugar Management #10 Ref 0 ML Losartan-Hydrochlorothiazide (Losartan-Hydrochlorothiazide) 100-25 Mg Tab 1 TAB PO DAILY Blood Pressure Management #30 Ref 0 TAB Metoprolol Succinate ER 24 HR (Metoprolol Succinate ER 24 HR) 100 Mg Tab 100 MG PO DAILY #30 Ref 0 TAB Omeprazole (Omeprazole) 20 Mg Tab 20 MG PO DAILY #30 Ref 0 TAB Robyn Nguyen MD Sep 17, 2016 15:22 Nifedipine ER 24 HR (Nifedical XL) 60 Mg Tab 60 MG PO DAILY htn #30 TAB Prednisone (Prednisone) 50 Mg Tab 40 MG PO DAILY autoimmune hepatitis #30 TAB ([Ursodiol]) 300 MG CAP 300 MG PO Q12HR #60 CAP Continued Medications: Alprazolam (Alprazolam) 0.5 Mg Tab 0.5 MG PO Q4H PRN ANXIETY Ref 0 TAB Atorvastatin (Atorvastatin) 80 Mg Tab 80 MG PO HS Cholesterol Management #30 Ref 0 TAB Hydrocodone-Acetaminophen (Hydrocodone-Acetaminophen) 10-325 mg Tab 1 TAB PO Q4H PRN PAIN Ref 0 TAB Insulin Human NPH Inj (Novolin N Inj) 1,000 Unit/10 Ml Vial 10 UNITS SQ Blood Sugar Management #10 Ref 0 ML Insulin Human Regular Inj (Novolin R Inj) 1,000 Unit/10 Ml Vial 2-10 UNITS SQ DIRECTED Max dose at bedtime:( )units; sugars less than 150,(0 ) units; sugars 150-199,(2)unit; sugars 200-249,(4)units; sugars 250-299,(6) units; sugars 300-349,(8)units; sugars equal to or greater than 350,(10)units Blood Sugar Management #10 Ref 0 ML Losartan-Hydrochlorothiazide (Losartan-Hydrochlorothiazide) 100-25 Mg Tab 1 TAB PO DAILY Blood Pressure Management #30 Ref 0 TAB Metoprolol Succinate ER 24 HR (Metoprolol Succinate ER 24 HR) 100 Mg Tab 100 MG PO DAILY #30 Ref 0 TAB Omeprazole (Omeprazole) 20 Mg Tab 20 MG PO DAILY #30 Ref 0 TAB Robyn Nguyen MD Sep 17, 2016 15:22
== END 2016-09-17 13:52 | disposition home or self-care (01) | DRG 442 ==
LOC: NEPE 10:18 → NEDA 12:51 → N04B 18:13 → N03B 09-11 15:56 → HIME 09-11 18:20 → HOCB 09-14 16:32
PROVIDERS: ADMIT Hospitalist; ATTEND Hospitalist
PROC: 0FB13ZX Excision of Right Lobe Liver, Percutaneous Approach, Diagnostic (ICD-10-PCS; principal; 2016-09-11)
DX: K75.4 Autoimmune hepatitis (principal); N17.9 Acute kidney failure, unspecified; M62.82 Rhabdomyolysis; E11.649 Type 2 diabetes mellitus with hypoglycemia without coma; E11.65 Type 2 diabetes mellitus with hyperglycemia; E66.01 Morbid (severe) obesity due to excess calories; K91.870 Postprocedural hematoma of a digestive system organ or structure following a digestive system procedure; B19.20 Unspecified viral hepatitis C without hepatic coma; N20.0 Calculus of kidney; G89.29 Other chronic pain; M54.5 Low back pain; I10 Essential (primary) hypertension; F41.9 Anxiety disorder, unspecified; E78.5 Hyperlipidemia, unspecified; K21.9 Gastro-esophageal reflux disease without esophagitis; L80 Vitiligo; I25.10 Atherosclerotic heart disease of native coronary artery without angina pectoris; K42.9 Umbilical hernia without obstruction or gangrene; E87.6 Hypokalemia; Z86.010 Personal history of colon polyps; M19.90 Unspecified osteoarthritis, unspecified site; G62.9 Polyneuropathy, unspecified; I34.0 Nonrheumatic mitral (valve) insufficiency; Y84.8 Other medical procedures as the cause of abnormal reaction of the patient, or of later complication, without mention of misadventure at the time of the procedure; Y78.0 Diagnostic and monitoring radiological devices associated with adverse incidents; Y92.239 Unspecified place in hospital as the place of occurrence of the external cause; Z79.4 Long term (current) use of insulin; Z80.49 Family history of malignant neoplasm of other genital organs; Z80.1 Family history of malignant neoplasm of trachea, bronchus and lung
CPT/HCPCS: 47000; 72100; 74176; 76937; 77012; 80048; 80053; 80069; 80074; 80076; 80307; 80329; 81001; 82043; 82085; 82103; 82105; 82140; 82164; 82248; 82390; 82533; 82550; 82552; 82570; 82595; 82728; 82948; 82977; 83036; 83520; 83540; 83550; 83605; 83690; 83735; 83874; 84100; 84165; 84300; 84443; 84540; 85014; 85018; 85025; 85610; 85652; 85730; 86021; 86038; 86140; 86160; 86256; 86376; 87517; 87522; 87641; 87902; 88307; 88313; 93306; 94664; 96360; G0480; J1644; J1815; J2250; J2405; J3010; J3480; J7030; J7040; J7121; J7512